=== PATIENT | male | born 1945 | race Caucasian/White ===

== ENCOUNTER 2022-09-01 11:22 | Emergency (ER) | payer MEDICARE, SELFPAY ==
--- NOTE | ~2022-09-01 | US_ITS ---
US venous doppler [facility] DATE: 09/01/2022 13:27 INDICATION: Calf pain TECHNIQUE: Real-time and color flow imaging and Doppler analysis of the veins of both lower extremiti es COMPARISON: None FINDINGS: The greater saphenous veins are patent. There is spontaneous and phasic flow and normal aug mentation and color flow signal and normal compression of the deep veins of both lower extremities. IMPRESSION: No evidence of deep venous thrombosis of the lower extremities Reviewed, dictated and finalized at [facility]. Reviewed, dictated and finalized at location [facility].
[2022-09-01 11:25] VITALS: BP 130/68; PULSE 60; RESP 16; TEMP 36.6; O2SAT 100
--- NOTE | 2022-09-01 13:54 | ED.GENADULT ---
HPI - General Adult General Chief complaint: Back Pain/Injury Stated complaint: back/leg problems after moving furniture Time Seen by Provider: 09/01/22 11:58 History of Present Illness HPI narrative: Patient is a 76-year-old male who presents ER with left calf pain. Ongoing for 2 weeks. Worsening over the last week. Occasionally improves with oral pain medication at home. Worse with walking. It also worsened after moving some furniture. No fall or trauma. No swelling of the leg. No chest pain or difficulty breathing. No history of blood clots. Has history of chronic back pain but has no pain at this time and no back pain that radiates down the leg. The Pain when it hurts will radiate into the foot but not up towards the back. No rash. Related Data Allergies Allergy/AdvReac Type Severity Reaction Status Date / Time acetaminophen [From Vicodin] Allergy Unresponsiv Verified 09/01/22 11:51 e hydrocodone [From Vicodin] Allergy Unresponsiv Verified 09/01/22 11:51 e vancomycin Allergy Hallucinati Verified 09/01/22 11:51 ng Review of Systems Review of Systems: All systems reviewed & are unremarkable except as noted in HPI and below Constitutional: Constitutional: Denies chills and Denies fever(s) Cardiovascular: Cardiovascular: Denies chest pain, Denies rapid heart rate and Denies radiating jaw, neck or arm pain Respiratory: Respiratory: Denies dyspnea Musculoskeletal: Musculoskeletal: Denies back pain, Denies arthralgias and Denies joint swelling Comments: left calf pain. Integumentary/Breasts: Skin/Breast: Denies erythema and Denies rash Neurologic: Denies focal weakness and Denies numbness PMFSH Past Medical History Medical History (Updated 09/01/22 @ 13:59 by Abhilash Ryan MD) Acoustic neuroma Diabetes Hyperlipidemia Hypertension Surgical History Surgical History (Updated 09/01/22 @ 13:56 by Abhilash Ryan MD) History of lumbar fusion Exam Narrative: GENERAL: Well-appearing, well-nourished, and in no acute distress. HEAD: Normocephalic, atraumatic. CHEST: Clear to auscultation. No respiratory distress. HEART: Regular rate and rhythm. Normal peripheral pulses. EXTREMITIES: Normal range of motion. Left calf soft and nontender without edema. SKIN: Warm, dry, no rash. NEURO: No focal deficits. Alert and oriented x3. PSYCH: Normal mood and affect. Course Course Emergency Course: Unremarkable exam lower extremity with negative imaging for DVT. Recommend anti-inflammatories for home and follow-up with PCP. Patient and daughter verbalized understanding of treatment plan. Vital Signs Vital signs: Vital Signs Temperature 97.9 F 09/01/22 11:25 Pulse Rate 60 09/01/22 11:25 Respiratory Rate 16 09/01/22 11:25 Blood Pressure 130/68 09/01/22 11:25 Pulse Oximetry 100 09/01/22 11:25 Oxygen Delivery Room Air 09/01/22 11:25 Temperature 97.9 F 09/01/22 11:25 Pulse Rate 60 09/01/22 11:25 Respiratory Rate 16 09/01/22 11:25 Blood Pressure 130/68 09/01/22 11:25 Pulse Oximetry 100 09/01/22 11:25 Oxygen Delivery Room Air 09/01/22 11:25 Medical Decision Making Vital Signs Vital Signs: Vital Signs Temperature 97.9 F 09/01/22 11:25 Pulse Rate 60 09/01/22 11:25 Respiratory Rate 16 09/01/22 11:25 Blood Pressure 130/68 09/01/22 11:25 Pulse Oximetry 100 09/01/22 11:25 Oxygen Delivery Room Air 09/01/22 11:25 Temperature 97.9 F 09/01/22 11:25 Pulse Rate 60 09/01/22 11:25 Respiratory Rate 16 09/01/22 11:25 Blood Pressure 130/68 09/01/22 11:25 Pulse Oximetry 100 09/01/22 11:25 Oxygen Delivery Room Air 09/01/22 11:25 Imaging Data Radiologist's impression: ITS Impressions Venous Doppler Study 09/01/22 13:33 IMPRESSION: No evidence of deep venous thrombosis of the lower extremities Discharge Plan Discharge Clinical Impression: Pain of left calf Patient D
== END 2022-09-01 14:15 | disposition home or self-care (01) ==
PROVIDERS: Emergency Provider Emergency Medicine
DX: M79.662 Pain in left lower leg (principal); I10 Essential (primary) hypertension; E78.5 Hyperlipidemia, unspecified; E11.9 Type 2 diabetes mellitus without complications
CPT/HCPCS: 93971; 99284

== ENCOUNTER → 2022-09-04 14:30 | Outpatient (CLI) | payer MEDICARE, SELFPAY ==
--- NOTE | ~2022-09-04 | MR_ITS ---
EXAMINATION: MR lumbar spine wo con DATE: 09/04/2022 15:20 INDICATION: Low back pain TECHNIQUE: Magnetic resonance imaging (MRI) of the lumbar spine was performed without intravenous con trast. Sequences included sagittal T2-weighted FSE, sagittal T2-weighted FS FSE, sagittal T1-weighted FSE, and axial T2-weighted FSE. COMPARISON: None FINDINGS: 5 mm retrolisthesis L5 on S1. Vertebral body heights are normal. Severe disc height loss at L5-S1 wit h associated mild fibrovascular and fibrofatty degenerative endplate changes. Marrow signal is otherw ise normal. Disc desiccation and mild disc height loss at L3-L4 and L4-L5 and without significant dis c height loss at L2-L3. The conus medullaris terminates at L1-L2. There is normal signal in the cauda l spinal cord. Few T2 hyperintense left renal cyst. Paravertebral soft tissues are otherwise unremark able. The following disc levels are specifically discussed: T12-L1: The disc does not extend beyond the endplate margin. There is mild bilateral facet joint oste oarthritis. There is no neural foraminal stenosis. There is no central canal stenosis. L1-L2: Disc is minimally bulging. There is mild bilateral facet joint osteoarthritis. There is no tiara ral foraminal stenosis. There is no central canal stenosis. L2-L3: Disc is mildly bulging. There is mild bilateral facet joint osteoarthritis. There is mild bila teral neural foraminal stenosis. There is mild central canal stenosis. L3-L4: Disc is mildly bulging. There is mild bilateral facet joint osteoarthritis. There is mild to m oderate bilateral neural foraminal stenosis. There is mild central canal stenosis. L4-L5: Moderate disc bulge with annular fissure. There is mild hypertrophy of the left ligamentum fla vum. There is moderate left and mild to moderate right facet joint osteoarthritis. There is moderate left and mild to moderate right neural foraminal stenosis. There is mild central canal stenosis laurita g with narrowing of the left and right lateral recesses. L5-S1: Disc is bulging with annular fissure. L5 inferior endplate osteophytes at the bilateral neural foramina. There is mild left and moderate right facet joint osteoarthritis. There is moderate bilate ral neural foraminal stenosis. There is minimal central canal stenosis with mild stenosis of the left and right lateral recesses. IMPRESSION: 1. Spondylosis, severe at L5-S1 and mild in the more cephalad lumbar spine. Reviewed, dictated and finalized at location [facility].
== END ==
PROVIDERS: PCP Neurological Surgery
DX: M47.816 Spondylosis without myelopathy or radiculopathy, lumbar region (principal); M54.50 Low back pain, unspecified
CPT/HCPCS: 72148

== ENCOUNTER 2023-09-26 09:08 | Emergency (ER) | payer MEDICARE, SELFPAY ==
[2023-09-26 09:12] VITALS: BP 212/86; PULSE 71; RESP 19; TEMP 36.6; O2SAT 100
--- NOTE | 2023-09-26 09:23 | ED.MALEGU ---
HPI - Male Genitourinary General Chief complaint: Urogenital-Male Stated complaint: Urinary Issues Time Seen by Provider: 09/26/23 09:15 Source: patient Mode of arrival: ambulatory Limitations: no limitations History of Present Illness HPI Narrative: Humberto is a 77-year-old male patient presenting to the emergency room today with complaints of difficulty urinating. reports that the last time he voided was around 3:00 a.m. this morning. She said he was dribbling and having a weak stream. Had a Booth catheter removed by Dr. Rolon at [facility] yesterday. History of BPH. reports that he has had biopsies of his prostate and they were normal. Reports this urinary retention started on September 17 after surgery when the gave the patient propofol. Received a Booth catheter after he was having overflow incontinence and pain. Currently rating pain at a 10 over the suprapubic area. Related Data Home Medications Medication Instructions Recorded Confirmed atorvastatin 40 mg tablet 40 mg PO DAILY 09/12/22 carvedilol 25 mg tablet 25 mg PO BID 09/12/22 hydrochlorothiazide 12.5 mg tablet 12.5 mg PO DAILY 09/12/22 losartan 50 mg tablet 50 mg PO DAILY 09/12/22 metformin 500 mg tablet,extended tablet PO 09/12/22 release 24 hr Allergies Allergy/AdvReac Type Severity Reaction Status Date / Time acetaminophen [From Vicodin] Allergy Unresponsiv Verified 09/01/22 11:51 e hydrocodone [From Vicodin] Allergy Unresponsiv Verified 09/01/22 11:51 e vancomycin Allergy Hallucinati Verified 09/01/22 11:51 ng Review of Systems Review of Systems: Pertinent positives per HPI. Patient denies any fever, chills, rash, headache, visual changes, dizziness, cough, runny nose, sore throat, shortness of breath, chest pain, palpitations, nausea, vomiting, diarrhea, constipation PMFSH Past Medical History Medical History (Updated 09/26/23 @ 10:26 by Yovani Vega APRN) Acoustic neuroma Diabetes Hyperlipidemia Hypertension Surgical History Surgical History (Updated 09/01/22 @ 13:56 by Abhilash Ryan MD) History of lumbar fusion Family History Family History (Updated 09/12/22 @ 14:50 by Celeste Matson MA) Father Alzheimers disease Mother Diabetes mellitus Hypertension Heart problem Spinocerebellar ataxia Sibling Hypertension Social History Social History Smoking status: Smoker, status unknown Comments At the time of my signature, I reviewed and agree with the nursing past medical, surgical, social, and family history. There is no relevant family history pertinent to the patient complaint. Exam Narrative: General: Well-developed, well nourished, in no apparent distress. Head: Normocephalic, atraumatic. Cardio: Regular rate and rhythm, s1 and s2 normal, no murmur appreciated. Resp: Clear to auscultation bilaterally, no rhonchi, rales, wheezing or rubs. Abdomen: Soft, pliable, bowel sounds present in all quadrants, suprapubic area tender to palpation, no organomegly, no CVAT tenderness. Course Course Emergency Course: Portions of this record may have been created with voice recognition software. Vital Signs Vital signs: Vital Signs Temperature 36.6 C 09/26/23 09:12 Pulse Rate 71 09/26/23 09:12 Respiratory Rate 19 09/26/23 09:12 Blood Pressure 212/86 H 09/26/23 09:12 Pulse Oximetry 100 09/26/23 09:12 Oxygen Delivery Room Air 09/26/23 09:12 Temperature 36.6 C 09/26/23 09:12 Pulse Rate 71 09/26/23 09:12 Respiratory Rate 19 09/26/23 09:12 Blood Pressure 212/86 H 09/26/23 09:12 Pulse Oximetry 100 09/26/23 09:12 Oxygen Delivery Room Air 09/26/23 09:12 Vital signs reviewed MDM - Male Genitourinary MDM Narrative Medical decision making narrative: At the time of visit patient is resting comfortably on the exam table. Patient appears to b
[2023-09-26 10:03] LABS: Basophils Percent Auto 0.3 % (0.2-1.2); Eosinophils Absolute Auto 0.1 K/mm3 (0-0.3); Eosinophils Percent Auto 0.8 % (0-4.4); Hematocrit 41.9 % (42.0-52.0); Hemoglobin 14.1 g/dL (14.0-18.0); Immature Granulocyte Absolute 0.02 K/mm3 (0.00-0.031); Immature Granulocyte Percent A 0.2 % (0-0.5); Immature Platelet Fraction Pct 4.2 % (0.9-11.2); Lymphocytes Absolute Auto 0.69 K/mm3 (0.9-3.2); Lymphocytes Percent Auto 7.2 % (18.3-44.2); Mean Corpuscular HGB Conc 33.7 g/dl (32-36); Mean Corpuscular Hemoglobin 31.3 pg (26-34); Mean Corpuscular Volume 93.1 fl (80-100); Mean Platelet Volume 10.9 fl (7.4-10.4); Monocytes Absolute Auto 0.4 K/mm3 (0.1-0.6); Monocytes Percent Auto 4.2 % (2.6-8.5); Neutrophils Absolute Auto 8.4 K/mm3 (1.3-6.7); Neutrophils Percent Auto 87.3 % (45.5-73.1); Platelet Count Result 110 k/mm3 (150-375); Red Cell Distribution Width 12.3 % (11.5-14.5); White Blood Count 9.6 K/mm3 (4.5-10.0)
[2023-09-26 10:08] LABS: Appearance Urine Clear (Clear); Bacteria Urine None Seen /hpf; Bilirubin Urine Negative (Negative); Blood Urine Non-Hemolyzed Trace (Negative); Color Urine Yellow (Yellow); Glucose Urine UA Negative (Negative); Ketones Urine Negative (Negative); Leukocyte Esterase Ur Trace LEU/UL (Negative); Nitrate Urine Negative (Negative); Non Pathogenic Casts 0-2; Protein Urine Negative (Negative); Specific Grav Ur 1.008 (1.001-1.035); Squamous Epithelial Cell Urine None Seen /hpf (Few); Urobilinogen Urine 0.2 mg/dL (<2.0); WBC Urine 0-5 /hpf (0-3)
[2023-09-26 10:12] LABS: Alanine Aminotransferase 26 U/L (6-50); Albumin Level 4.1 g/dL (3.5-5.1); Alkaline Phosphatase 90 U/L (38-126); Anion Gap 10 mmol/L (4-12); Aspartate Amino Transferase 28 U/L (17-59); Bilirubin,Total 0.9 mg/dL (0.2-1.3); Blood Urea Nitrogen 15 mg/dL (9-20); Carbon Dioxide 25 mmol/L (22-30); Chloride 105 mmol/L (98-107); Estimated CRCL calculation 58 ml/min; Estimated Glomerular Filt Rate > 60; Glucose 174 mg/dL (65-110); Potassium 3.6 mmol/L (3.4-5.0); Sodium 140 mmol/L (137-145)
[2023-09-26 10:17] LABS: Add Urine Microscopic? YES
[2023-09-26 11:00] VITALS: BP 120/72; PULSE 80; RESP 16; O2SAT 98
== END 2023-09-26 11:05 | disposition home or self-care (01) ==
PROVIDERS: Emergency Provider Nurse Practitioner Family
DX: N40.1 Benign prostatic hyperplasia with lower urinary tract symptoms (principal); R33.8 Other retention of urine; I10 Essential (primary) hypertension; E78.5 Hyperlipidemia, unspecified; E11.9 Type 2 diabetes mellitus without complications; Z79.84 Long term (current) use of oral hypoglycemic drugs
CPT/HCPCS: 36415; 51702; 80053; 81001; 85025; 85055; 99283

== ENCOUNTER 2023-10-02 02:10 | Emergency (ER) | payer MEDICARE, SELFPAY ==
[2023-10-02 03:09] VITALS: BP 171/76; PULSE 90; RESP 18; TEMP 36.4; O2SAT 99
--- NOTE | 2023-10-02 04:16 | ED.MALEGU ---
HPI - Male Genitourinary General Chief complaint: Urogenital-Male Time Seen by Provider: 10/02/23 02:12 History of Present Illness HPI Narrative: Patient is a 77-year-old male who presents ER with urinary retention and lower abdominal pain. He had a Booth catheter removed today. He has had multiple episodes of urinary retention since the beginning of the month. He reports dysuria with increased frequency and weak stream. He has lower abdominal pain with palpation. Hurts with movement. Related Data Home Medications Medication Instructions Recorded Confirmed atorvastatin 40 mg tablet 40 mg PO DAILY 09/12/22 10/02/23 losartan 50 mg tablet 50 mg PO DAILY 09/12/22 10/02/23 cholecalciferol (vitamin D3) 100 1,000 unit PO DAILY 10/02/23 10/02/23 mcg (4,000 unit) capsule meloxicam 15 mg tablet 15 mg PO DAILY 10/02/23 10/02/23 omeprazole 20 mg tablet,delayed 20 mg PO DAILY 10/02/23 10/02/23 release tamsulosin 0.4 mg capsule (Flomax) 0.4 mg PO DAILY 10/02/23 10/02/23 vitamins A,C,J-wknu-phxifh 2,148 tablet 10/02/23 10/02/23 mcg-113 mg-45 mg-17.4 mg tablet (PreserVision AREDS) Allergies Allergy/AdvReac Type Severity Reaction Status Date / Time acetaminophen [From Vicodin] Allergy Unresponsiv Verified 10/02/23 04:19 e hydrocodone [From Vicodin] Allergy Unresponsiv Verified 10/02/23 04:19 e vancomycin Allergy Hallucinati Verified 10/02/23 04:19 ng Review of Systems Review of Systems: All systems reviewed & are unremarkable except as noted in HPI and below Constitutional: Constitutional: Reports no additional constitutional complaints ENT: Reports system reviewed and no additional complaints, except as documented Cardiovascular: Cardiovascular: Reports no additional cardiovascular complaints Respiratory: Respiratory: Reports no additional respiratory complaints Gastrointestinal: Gastrointestinal: Reports abdominal pain, Denies nausea and Denies vomiting Genitourinary: Genitourinary: Reports oliguria, Reports dysuria and Reports urinary frequency PMFSH Past Medical History Medical History (Updated 10/03/23 @ 00:00 by Barbara Bell) Acoustic neuroma Diabetes Hyperlipidemia Hypertension Surgical History Surgical History (Updated 09/01/22 @ 13:56 by Abhilash Ryan MD) History of lumbar fusion Family History Family History (Updated 09/12/22 @ 14:50 by Celeste Matson MA) Father Alzheimers disease Mother Diabetes mellitus Hypertension Heart problem Spinocerebellar ataxia Sibling Hypertension Social History Social History Smoking status: Smoker, status unknown Exam Narrative: GENERAL: Chronically ill-appearing, well-nourished, and in no acute distress. HEAD: Normocephalic, atraumatic. ENT: Mucous membranes moist. CHEST: Clear to auscultation. No respiratory distress. HEART: Regular rate and rhythm. . Normal peripheral pulses. ABDOMEN: Soft, palpable bladder and lower abdomen that is tender, nondistended. EXTREMITIES: Normal range of motion. No edema. SKIN: Warm, dry, no rash. NEURO: Alert and oriented x2-3, baseline. PSYCH: Normal mood and affect. Course Course Emergency Course: 800 mL out after Booth placement. Urinalysis borderline for infection. Will start on cefuroxime. Vital Signs Vital signs: Vital Signs Temperature 97.6 F 10/02/23 03:09 Pulse Rate 90 10/02/23 03:09 Respiratory Rate 18 10/02/23 03:09 Blood Pressure 171/76 H 10/02/23 03:09 Pulse Oximetry 99 10/02/23 03:09 Oxygen Delivery Room Air 10/02/23 03:09 Temperature 97.6 F 10/02/23 03:09 Pulse Rate 67 10/02/23 04:21 Respiratory Rate 18 10/02/23 04:21 Blood Pressure 132/71 10/02/23 04:21 Pulse Oximetry 98 10/02/23 04:21 Oxygen Delivery Room Air 10/02/23 03:09 MDM - Male Genitourinary Lab Data Labs: Lab Results 10/02/23 Range/Units 03:23 Urine Color Yellow (Yellow) Urine Appearance Clear (Clear) Urine pH 7.0 (5.0-9.0) Ur Specific [place] 1.006 (1.001-1.035) Urine Protein Negative (Negative) mg/dL Urine Glucose (UA) Negative (Negative) mg/dL Urine Ketones Negative (Negative) mg/dL Ur Blood (Man) 1+ H (Negative) Urine Nitrate Negative (Negative) Urine Bilirubin Negative (Negative) Urine Urobilinogen 0.2 (<2.0) mg/dL Leukocyte Esterase Rfl 1+ H (Negative) TANNER/UL Urine RBC 3-5 H (0-2) /hpf Urine WBC 11-20 H (0-3) /hpf Ur Squamous Epith Cells None seen (Few) /hpf Urine Bacteria Rare /hpf Urine Casts 0-2 Urine Characteristics Clear Urine Characteristics Clear Discharge Plan Discharge Clinical Impression: Acute urinary retention, Acute UTI Patient Disposition: Home, Self-Care Condition: Stable Instructions: Urinary Tract Infection in Men (ED), Booth Catheter Placement and Care (ED) Additional Instructions: Follow-up with your urologist for removal of the Booth catheter. This catheter may have to stand for prolonged period. Take the oral antibiotic as prescribed. Return to the ER if you have fever over 100.4? F, you cannot keep down food or water, or you have additional concerns. Prescriptions: No Action atorvastatin 40 mg tablet 40 mg PO DAILY losartan 50 mg tablet 50 mg PO DAILY meloxicam 15 mg Tablet 15 mg PO DAILY tamsulosin [Flomax] 0.4 mg Capsule 0.4 mg PO DAILY omeprazole 20 mg Tablet,Delayed Release (Dr/Ec) 20 mg PO DAILY PreserVision AREDS 2,148 mcg-113 mg-45 mg-17.4mg Tablet Vitamin D3 100 mcg (4,000 unit) Capsule 1,000 unit PO DAILY Follow-up/Referrals: PHYSICIAN NOT ON STAFF,NONSTAFF [Primary Care Provider] - Shane Yates MD [Physician] - 1 Week
[2023-10-02 04:21] VITALS: BP 132/71; PULSE 67; RESP 18; O2SAT 98
--- NOTE | 2023-10-02 04:22 | PC.NURSE ---
0309: THis RN collected pt urine analysis around 0309 this morning.
[2023-10-02 04:34] LABS: Add Urine Microscopic? YES; Appearance Urine Clear (Clear); Bacteria Urine Rare /hpf; Bilirubin Urine Negative (Negative); Blood Urine 1+ (Negative); Color Urine Yellow (Yellow); Glucose Urine UA Negative (Negative); Ketones Urine Negative (Negative); Leukocyte Esterase Ur 1+ LEU/UL (Negative); Nitrate Urine Negative (Negative); Non Pathogenic Casts 0-2; Protein Urine Negative (Negative); Specific Grav Ur 1.006 (1.001-1.035); Squamous Epithelial Cell Urine None Seen /hpf (Few); Urobilinogen Urine 0.2 mg/dL (<2.0)
== END 2023-10-02 04:59 | disposition home or self-care (01) ==
PROVIDERS: Emergency Provider Emergency Medicine
DX: N39.0 Urinary tract infection, site not specified (principal); R33.9 Retention of urine, unspecified; E11.9 Type 2 diabetes mellitus without complications; E78.5 Hyperlipidemia, unspecified; I10 Essential (primary) hypertension; Z98.1 Arthrodesis status
CPT/HCPCS: 51702; 80053; 80061; 81001; 81003; 82043; 82607; 83036; 84439; 84443; 84480; 85025; 86777; 87077; 87086; 87088; 87181; 99283

== ENCOUNTER 2023-10-02 11:19 | Outpatient (NON) | payer MEDICARE, SELFPAY ==
[2023-10-02 13:08] LABS: Basophils Percent Auto 0.5 % (0.2-1.2); Eosinophils Absolute Auto 0.1 K/mm3 (0-0.3); Eosinophils Percent Auto 0.9 % (0-4.4); Hematocrit 39.1 % (42.0-52.0); Hemoglobin 12.8 g/dL (14.0-18.0); Immature Granulocyte Absolute 0.02 K/mm3 (0.00-0.031); Immature Granulocyte Percent A 0.3 % (0-0.5); Lymphocytes Absolute Auto 0.64 K/mm3 (0.9-3.2); Lymphocytes Percent Auto 9.8 % (18.3-44.2); Mean Corpuscular HGB Conc 32.7 g/dl (32-36); Mean Corpuscular Hemoglobin 31.1 pg (26-34); Mean Corpuscular Volume 94.9 fl (80-100); Mean Platelet Volume 11.9 fl (7.4-10.4); Monocytes Absolute Auto 0.4 K/mm3 (0.1-0.6); Monocytes Percent Auto 6.3 % (2.6-8.5); Neutrophils Absolute Auto 5.4 K/mm3 (1.3-6.7); Neutrophils Percent Auto 82.2 % (45.5-73.1); Platelet Count Result 118 k/mm3 (150-375); Red Blood Count 4.12 M/mm3 (4.6-6.20); Red Cell Distribution Width 12.4 % (11.5-14.5); White Blood Count 6.5 K/mm3 (4.5-10.0)
[2023-10-02 13:20] LABS: Appearance Urine Clear (Clear); Bacteria Urine Rare /hpf; Bilirubin Urine Negative (Negative); Blood Urine 2+ (Negative); Color Urine Yellow (Yellow); Glucose Urine UA Negative (Negative); Ketones Urine Negative (Negative); Leukocyte Esterase Ur 2+ LEU/UL (Negative); Nitrate Urine Negative (Negative); Protein Urine 1+ mg/dL (Negative); RBC Urine 21-50 /hpf (0-2); Specific Grav Ur 1.015 (1.001-1.035); Squamous Epithelial Cell Urine None Seen /hpf (Few)
[2023-10-02 13:22] LABS: Alanine Aminotransferase 25 U/L (6-50); Albumin Level 3.8 g/dL (3.5-5.1); Alkaline Phosphatase 92 U/L (38-126); Anion Gap 6 mmol/L (4-12); Aspartate Amino Transferase 24 U/L (17-59); Bilirubin,Total 0.8 mg/dL (0.2-1.3); Blood Urea Nitrogen 13 mg/dL (9-20); Calcium 9.7 mg/dL (8.4-10.2); Carbon Dioxide 30 mmol/L (22-30); Chloride 102 mmol/L (98-107); Cholesterol 107 mg/dL (0-200); Estimated Glomerular Filt Rate > 60; Glucose 171 mg/dL (65-110); HDL Direct 41 mg/dL; Potassium 3.3 mmol/L (3.4-5.0); Sodium 138 mmol/L (137-145); Triglycerides 41 mg/dL (<150)
[2023-10-02 13:23] LABS: Hemoglobin A1C 5.7 % (<5.7)
[2023-10-02 13:25] LABS: Add Urine Microscopic? YES
[2023-10-02 13:30] LABS: Creatinine Urine 97.1 mg/dL
[2023-10-02 13:33] LABS: LDL Cholesterol Direct 58 mg/dL
[2023-10-02 13:34] LABS: MALB Creatinine Ratio 179.8 mg/g (0-30); Microalbumin Urine Random 174.6 mg/L (0-16.7)
[2023-10-02 13:51] LABS: Thyroid Stimulating Hormone Reflex 0.452 uIU/mL (0.465-4.68)
[2023-10-02 17:46] LABS: Free T4 Free Thyroxine Reflex 1.69 ng/dL (0.78-2.19)
[2023-10-02 19:10] LABS: Total Triiodothyronine (T3) 1.13 NG/ML (0.97-1.69)
[2023-10-05 14:03] LABS: Toxoplasma IgG Antibody <7.20 IU/mL; Toxoplasma IgM Antibody <8.00 AU/mL
== END 2023-10-02 11:20 | disposition home or self-care (01) ==
PROVIDERS: Visit Provider Internal Medicine
DX: H53.8 Other visual disturbances (principal); R41.0 Disorientation, unspecified; E11.9 Type 2 diabetes mellitus without complications; E44.0 Moderate protein-calorie malnutrition; I10 Essential (primary) hypertension
CPT/HCPCS: 80053; 80061; 81001; 81003; 82043; 82607; 83036; 84439; 84443; 84480; 85025; 86777; 87077; 87086; 87088; 87181

== ENCOUNTER 2023-10-08 15:28 | Outpatient (NON) | payer MEDICARE, SELFPAY ==
[2023-10-08 19:34] LABS: Anion Gap 6 mmol/L (4-12); Blood Urea Nitrogen 15 mg/dL (9-20); Calcium 9.7 mg/dL (8.4-10.2); Carbon Dioxide 30 mmol/L (22-30); Chloride 104 mmol/L (98-107); Estimated Glomerular Filt Rate > 60; Glucose 112 mg/dL (65-110); Potassium 3.7 mmol/L (3.4-5.0); Sodium 140 mmol/L (137-145)
[2023-10-08 19:41] LABS: Bacteria Urine None Seen /hpf; Non Pathogenic Casts 0-2; RBC Urine >100 /hpf (0-2); Squamous Epithelial Cell Urine Occasional /hpf (Few)
[2023-10-08 19:51] LABS: Appearance Urine Cloudy (Clear); Bilirubin Urine 1+ (Negative); Blood Urine 3+ (Negative); Color Urine Red (Yellow); Glucose Urine UA Negative (Negative); Ketones Urine Negative (Negative); Leukocyte Esterase Ur 2+ LEU/UL (Negative); Nitrate Urine Negative (Negative); Protein Urine 2+ mg/dL (Negative); Specific Grav Ur 1.009 (1.001-1.035); Urobilinogen Urine 0.2 mg/dL (<2.0); pH Urine 5.5 (5.0-9.0)
[2023-10-08 19:54] LABS: Add Urine Microscopic? YES
== END 2023-10-08 15:29 | disposition home or self-care (01) ==
PROVIDERS: Visit Provider Internal Medicine
DX: I10 Essential (primary) hypertension (principal); N39.0 Urinary tract infection, site not specified
CPT/HCPCS: 80048; 81001; 87077; 87086; 87088; 87181

== ENCOUNTER 2023-10-23 14:51 | Outpatient (NON) | payer MEDICARE, SELFPAY ==
[2023-10-23 16:43] LABS: Toxigenic C. Diff NEGATIVE (NEGATIVE)
== END 2023-10-23 14:52 | disposition home or self-care (01) ==
LOC: HOME HLTH 14:55
PROVIDERS: Visit Provider Internal Medicine
DX: R19.7 Diarrhea, unspecified (principal); N39.0 Urinary tract infection, site not specified; E11.9 Type 2 diabetes mellitus without complications; E44.0 Moderate protein-calorie malnutrition; I10 Essential (primary) hypertension
CPT/HCPCS: 87493

== ENCOUNTER 2023-11-13 13:17 | Outpatient (NON) | payer MEDICARE, SELFPAY ==
[2023-11-13 15:31] LABS: Appearance Urine Turbid (Clear); Bacteria Urine 1+ /hpf; Bilirubin Urine Negative (Negative); Blood Urine 2+ (Negative); Color Urine Yellow (Yellow); Glucose Urine UA Negative (Negative); Ketones Urine Negative (Negative); Leukocyte Esterase Ur 3+ LEU/UL (Negative); Nitrate Urine Negative (Negative); Non Pathogenic Casts 0-2; Protein Urine Trace mg/dL (Negative); RBC Urine 21-50 /hpf (0-2); Specific Grav Ur 1.017 (1.001-1.035); Squamous Epithelial Cell Urine None Seen /hpf (Few); Urobilinogen Urine 0.2 mg/dL (<2.0); WBC Urine >100 /hpf (0-3)
[2023-11-13 15:33] LABS: Add Urine Microscopic? YES
== END 2023-11-13 13:18 | disposition home or self-care (01) ==
PROVIDERS: Visit Provider Internal Medicine
DX: R41.0 Disorientation, unspecified (principal)
CPT/HCPCS: 81001; 87077; 87086; 87088; 87181

== ENCOUNTER 2023-11-24 15:04 | Outpatient (NON) | payer MEDICARE, SELFPAY ==
[2023-11-24 19:01] LABS: Appearance Urine Cloudy (Clear); Bacteria Urine None Seen /hpf; Bilirubin Urine Negative (Negative); Blood Urine 3+ (Negative); Color Urine Yellow (Yellow); Glucose Urine UA Negative (Negative); Ketones Urine Negative (Negative); Leukocyte Esterase Ur 2+ LEU/UL (Negative); Nitrate Urine Negative (Negative); Non Pathogenic Casts 0-2; Protein Urine 1+ mg/dL (Negative); RBC Urine >100 /hpf (0-2); Specific Grav Ur 1.012 (1.001-1.035); Squamous Epithelial Cell Urine Occasional /hpf (Few); Urobilinogen Urine 0.2 mg/dL (<2.0); WBC Urine 51-100 /hpf (0-3); pH Urine 6.5 (5.0-9.0)
[2023-11-24 19:10] LABS: Add Urine Microscopic? YES
== END 2023-11-24 15:05 | disposition home or self-care (01) ==
LOC: HOME HLTH 15:08
PROVIDERS: Visit Provider Internal Medicine
DX: Z46.6 Encounter for fitting and adjustment of urinary device (principal); N40.1 Benign prostatic hyperplasia with lower urinary tract symptoms; R33.8 Other retention of urine; N99.89 Other postprocedural complications and disorders of genitourinary system; N39.0 Urinary tract infection, site not specified
CPT/HCPCS: 81001; 87086; 87088

== ENCOUNTER 2023-11-25 11:00 | Emergency (ER) | payer MEDICARE, SELFPAY ==
[2023-11-25 11:04] VITALS: BP 138/75; PULSE 70; RESP 16; TEMP 36.9; O2SAT 98
[2023-11-25 11:31] VITALS: BP 123/76; PULSE 79; RESP 8; O2SAT 99
[2023-11-25 11:35] LABS: Basophils Absolute Auto 0.1 K/mm3 (0.0-0.1); Basophils Percent Auto 0.7 % (0.2-1.2); Eosinophils Absolute Auto 0.1 K/mm3 (0-0.3); Hematocrit 41.6 % (42.0-52.0); Hemoglobin 13.6 g/dL (14.0-18.0); Immature Granulocyte Absolute 0.04 K/mm3 (0.00-0.031); Immature Granulocyte Percent A 0.5 % (0-0.5); Lymphocytes Absolute Auto 0.96 K/mm3 (0.9-3.2); Lymphocytes Percent Auto 13.2 % (18.3-44.2); Mean Corpuscular HGB Conc 32.7 g/dl (32-36); Mean Corpuscular Volume 94.8 fl (80-100); Mean Platelet Volume 10.8 fl (7.4-10.4); Monocytes Absolute Auto 0.6 K/mm3 (0.1-0.6); Monocytes Percent Auto 7.8 % (2.6-8.5); Neutrophils Absolute Auto 5.6 K/mm3 (1.3-6.7); Neutrophils Percent Auto 76.8 % (45.5-73.1); Platelet Count Result 165 k/mm3 (150-375); Red Blood Count 4.39 M/mm3 (4.6-6.20); Red Cell Distribution Width 12.4 % (11.5-14.5); White Blood Count 7.3 K/mm3 (4.5-10.0)
[2023-11-25] MEDS: WATER FOR IRRIGATION, STERILE 500 ML BOTTLE (11:36)
[2023-11-25 11:45] LABS: Alanine Aminotransferase 14 U/L (6-50); Alkaline Phosphatase 103 U/L (38-126); Anion Gap 3 mmol/L (4-12); Aspartate Amino Transferase 25 U/L (17-59); Bilirubin,Total 0.6 mg/dL (0.2-1.3); Blood Urea Nitrogen 12 mg/dL (9-20); Calcium 9.6 mg/dL (8.4-10.2); Carbon Dioxide 34 mmol/L (22-30); Chloride 104 mmol/L (98-107); Estimated CRCL calculation 52 ml/min; Estimated Glomerular Filt Rate > 60; Glucose 103 mg/dL (65-110); Potassium 3.7 mmol/L (3.4-5.0); Sodium 141 mmol/L (137-145)
[2023-11-25 11:48] LABS: INR 1.1; Prothrombin Time 14.4 Seconds (11.1-14.7)
--- NOTE | 2023-11-25 12:25 | ED.MALEGU ---
HPI - Male Genitourinary General Chief complaint: Urogenital-Male Stated complaint: hematuria in catheter Time Seen by Provider: 11/25/23 11:16 History of Present Illness HPI Narrative: patient is a 70-year-old male who presents ER with hematuria. Began overnight. Family concerns that he may have infection. Home health nurse sent his urine yesterday for culture because it had a lot of white blood cells and bacteria. Patient has had Enterococcus that is sensitive to ampicillin, vancomycin, and nitrofurantoin. He has been on amoxicillin recently. He sees Dr. Yates. Related Data Home Medications Medication Instructions Recorded Confirmed atorvastatin 40 mg tablet 40 mg PO DAILY 09/12/22 10/02/23 losartan 50 mg tablet 50 mg PO DAILY 09/12/22 10/02/23 cholecalciferol (vitamin D3) 100 1,000 unit PO DAILY 10/02/23 10/02/23 mcg (4,000 unit) capsule meloxicam 15 mg tablet 15 mg PO DAILY 10/02/23 10/02/23 omeprazole 20 mg tablet,delayed 20 mg PO DAILY 10/02/23 10/02/23 release tamsulosin 0.4 mg capsule (Flomax) 0.4 mg PO DAILY 10/02/23 10/02/23 vitamins A,C,O-mbct-dcaauv 2,148 tablet 10/02/23 10/02/23 mcg-113 mg-45 mg-17.4 mg tablet (PreserVision AREDS) Allergies Allergy/AdvReac Type Severity Reaction Status Date / Time acetaminophen [From Vicodin] Allergy Unresponsiv Verified 10/02/23 04:19 e hydrocodone [From Vicodin] Allergy Unresponsiv Verified 10/02/23 04:19 e vancomycin Allergy Hallucinati Verified 10/02/23 04:19 ng PMFSH Past Medical History Medical History (Updated 11/25/23 @ 13:22 by Abhilash Ryan MD) Acoustic neuroma Diabetes Hyperlipidemia Hypertension Surgical History Surgical History (Updated 09/01/22 @ 13:56 by Abhilash Ryan MD) History of lumbar fusion Family History Family History (Updated 09/12/22 @ 14:50 by Celeste Matson MA) Father Alzheimers disease Mother Diabetes mellitus Hypertension Heart problem Spinocerebellar ataxia Sibling Hypertension Social History Social History Smoking status: Smoker, status unknown Course Vital Signs Vital signs: Vital Signs Temperature 98.5 F 11/25/23 11:04 Pulse Rate 70 11/25/23 11:04 Respiratory Rate 16 11/25/23 11:04 Blood Pressure 138/75 11/25/23 11:04 Pulse Oximetry 98 11/25/23 11:04 Oxygen Delivery Room Air 11/25/23 11:04 Temperature 98.5 F 11/25/23 11:04 Pulse Rate 78 11/25/23 13:01 Respiratory Rate 13 11/25/23 13:01 Blood Pressure 143/74 H 11/25/23 13:01 Pulse Oximetry 95 11/25/23 13:01 Oxygen Delivery Room Air 11/25/23 11:04 MDM - Male Genitourinary Lab Data 11/25/23 11:29 11/25/23 11:29 Labs: Lab Results 11/25/23 11/25/23 Range/Units 11:28 11:29 WBC 7.3 (4.5-10.0) K/mm3 RBC 4.39 L (4.6-6.20) M/mm3 Hgb 13.6 L (14.0-18.0) g/dL Hct 41.6 L (42.0-52.0) % MCV 94.8 (80-100) fl MCH 31.0 (26-34) pg MCHC 32.7 (32-36) g/dl RDW 12.4 (11.5-14.5) % Plt Count 165 (150-375) k/mm3 MPV 10.8 H (7.4-10.4) fl Immature Gran % (Auto) 0.5 (0-0.5) % Neut % (Auto) 76.8 H (45.5-73.1) % Lymph % (Auto) 13.2 L (18.3-44.2) % Moffat % (Auto) 7.8 (2.6-8.5) % Eos % (Auto) 1.0 (0-4.4) % Baso % (Auto) 0.7 (0.2-1.2) % Lymph # (Auto) 0.96 (0.9-3.2) K/mm3 Moffat # (Auto) 0.6 (0.1-0.6) K/mm3 Eos # (Auto) 0.1 (0-0.3) K/mm3 Baso # (Auto) 0.1 (0.0-0.1) K/mm3 Abs Immat Gran (auto) 0.04 H (0.00-0.031) K/mm3 Absolute Neuts (auto) 5.6 (1.3-6.7) K/mm3 Absolute Nucleated RBC 0.000 (0.0-0.012) K/mm3 Nucleated RBC % 0.0 (0.0-0.2) % PT 14.4 (11.1-14.7) Seconds INR 1.1 APTT 27.0 (22.3-36.8) Seconds Sodium 141 (137-145) mmol/L Potassium 3.7 (3.4-5.0) mmol/L Chloride 104 (98-107) mmol/L Carbon Dioxide 34 H (22-30) mmol/L Anion Gap 3 L (4-1
[2023-11-25 13:01] VITALS: BP 143/74; PULSE 78; RESP 13; O2SAT 95
== END 2023-11-25 13:29 | disposition home or self-care (01) ==
PROVIDERS: Emergency Provider Emergency Medicine
DX: N39.0 Urinary tract infection, site not specified (principal); R31.9 Hematuria, unspecified; I10 Essential (primary) hypertension; E11.9 Type 2 diabetes mellitus without complications; E78.5 Hyperlipidemia, unspecified; Z98.1 Arthrodesis status; Z79.899 Other long term (current) drug therapy
CPT/HCPCS: 36415; 80053; 85025; 85610; 85730; 99283

== ENCOUNTER 2023-11-28 15:07 | Emergency (ER) | payer MEDICARE, SELFPAY ==
[2023-11-28 15:27] VITALS: BP 121/66; PULSE 86; RESP 18; TEMP 36.9; O2SAT 99
[2023-11-28 19:19] VITALS: BP 147/79; PULSE 76; RESP 20; O2SAT 98
--- NOTE | 2023-11-28 19:26 | ED.MALEGU ---
HPI - Male Genitourinary General Chief complaint: Urogenital-Male Stated complaint: blood around catheter Time Seen by Provider: 11/28/23 17:24 History of Present Illness HPI Narrative: Patient is a 78-year-old male who presents ER with hematuria. Patient has indwelling Booth for urinary retention. He is being treated with Macrobid. He is not on blood thinning agents. He had a small spot around his penis. He has not been clotting off his catheter. Related Data Home Medications Medication Instructions Recorded Confirmed atorvastatin 40 mg tablet 40 mg PO DAILY 09/12/22 10/02/23 losartan 50 mg tablet 50 mg PO DAILY 09/12/22 10/02/23 cholecalciferol (vitamin D3) 100 1,000 unit PO DAILY 10/02/23 10/02/23 mcg (4,000 unit) capsule meloxicam 15 mg tablet 15 mg PO DAILY 10/02/23 10/02/23 omeprazole 20 mg tablet,delayed 20 mg PO DAILY 10/02/23 10/02/23 release tamsulosin 0.4 mg capsule (Flomax) 0.4 mg PO DAILY 10/02/23 10/02/23 vitamins A,C,Z-sily-vyntrp 2,148 tablet 10/02/23 10/02/23 mcg-113 mg-45 mg-17.4 mg tablet (PreserVision AREDS) Allergies Allergy/AdvReac Type Severity Reaction Status Date / Time acetaminophen [From Vicodin] Allergy Unresponsiv Verified 11/28/23 15:32 e hydrocodone [From Vicodin] Allergy Unresponsiv Verified 11/28/23 15:32 e vancomycin Allergy Hallucinati Verified 11/28/23 15:32 ng Review of Systems Review of Systems: ROS unobtainable: Yes unobtainable due to mental status PMFSH Past Medical History Medical History (Updated 11/28/23 @ 20:06 by Abhilash Ryan MD) Acoustic neuroma Diabetes Hyperlipidemia Hypertension Surgical History Surgical History (Updated 09/01/22 @ 13:56 by Abhilash Ryan MD) History of lumbar fusion Family History Family History (Updated 09/12/22 @ 14:50 by Celeste Matson MA) Father Alzheimers disease Mother Diabetes mellitus Hypertension Heart problem Spinocerebellar ataxia Sibling Hypertension Social History Social History Smoking status: Smoker, status unknown Exam Narrative: GENERAL: Chronically ill-appearing, well-nourished, and in no acute distress. HEAD: Normocephalic, atraumatic. ENT: Mucous membranes moist. NECK: Supple. ABDOMEN: Soft, nontender, nondistended. : Normal appearing external genitalia with Booth catheter coming from the urethra. Dried blood around the tip of the penis but no large clots. No leaking. Booth tube with bloody urine without clots. EXTREMITIES: Normal range of motion. No edema. SKIN: Warm, dry, no rash. NEURO: Alert and oriented x3. PSYCH: Normal mood and affect. Course Course Emergency Course: Discussed case with Urology. Recommends calling the office on Thursday11/30/2023 to get patient in to be seen. Does not recommend switching of the tube for CBI since there is no obstruction or large clots. Patient's has been educated and given reassurance. Vital Signs Vital signs: Vital Signs Temperature 98.5 F 11/28/23 15:27 Pulse Rate 86 11/28/23 15:27 Respiratory Rate 18 11/28/23 15:27 Blood Pressure 121/66 11/28/23 15:27 Pulse Oximetry 99 11/28/23 15:27 Oxygen Delivery Room Air 11/28/23 15:27 Temperature 98.5 F 11/28/23 15:27 Pulse Rate 76 11/28/23 19:19 Respiratory Rate 20 11/28/23 19:19 Blood Pressure 147/79 H 11/28/23 19:19 Pulse Oximetry 98 11/28/23 19:19 Oxygen Delivery Room Air 11/28/23 15:27 MDM - Male Genitourinary Lab Data 11/28/23 19:20 11/28/23 19:20 Labs: Lab Results 11/28/23 Range/Units 19:20 WBC 6.5 (4.5-10.0) K/mm3 RBC 4.09 L (4.6-6.20) M/mm3 Hgb 13.0 L (14.0-18.0) g/dL Hct 38.2 L (42.0-52.0) % MCV 93.4 (80-100) fl MCH 31.8 (26-34) pg MCHC 34.0 (32-36) g/dl RDW 12.5 (11.5-14.5) % Plt Count 145 L (150-375) k/mm3 MPV 10.5 H (7.
[2023-11-28 19:28] LABS: Basophils Percent Auto 0.6 % (0.2-1.2); Eosinophils Absolute Auto 0.1 K/mm3 (0-0.3); Eosinophils Percent Auto 1.6 % (0-4.4); Hematocrit 38.2 % (42.0-52.0); Immature Granulocyte Absolute 0.03 K/mm3 (0.00-0.031); Immature Granulocyte Percent A 0.5 % (0-0.5); Lymphocytes Absolute Auto 1.05 K/mm3 (0.9-3.2); Lymphocytes Percent Auto 16.3 % (18.3-44.2); Mean Corpuscular Hemoglobin 31.8 pg (26-34); Mean Corpuscular Volume 93.4 fl (80-100); Mean Platelet Volume 10.5 fl (7.4-10.4); Monocytes Absolute Auto 0.6 K/mm3 (0.1-0.6); Monocytes Percent Auto 8.8 % (2.6-8.5); Neutrophils Absolute Auto 4.7 K/mm3 (1.3-6.7); Neutrophils Percent Auto 72.2 % (45.5-73.1); Platelet Count Result 145 k/mm3 (150-375); Red Blood Count 4.09 M/mm3 (4.6-6.20); Red Cell Distribution Width 12.5 % (11.5-14.5); White Blood Count 6.5 K/mm3 (4.5-10.0)
[2023-11-28 19:39] LABS: Alanine Aminotransferase 11 U/L (6-50); Albumin Level 3.6 g/dL (3.5-5.1); Alkaline Phosphatase 103 U/L (38-126); Anion Gap 3 mmol/L (4-12); Aspartate Amino Transferase 23 U/L (17-59); Blood Urea Nitrogen 15 mg/dL (9-20); Calcium 9.2 mg/dL (8.4-10.2); Carbon Dioxide 32 mmol/L (22-30); Chloride 105 mmol/L (98-107); Estimated CRCL calculation 53 ml/min; Estimated Glomerular Filt Rate > 60; Glucose 114 mg/dL (65-110); Potassium 3.6 mmol/L (3.4-5.0); Sodium 140 mmol/L (137-145)
[2023-11-28 19:42] LABS: INR 1.1; Prothrombin Time 14.5 Seconds (11.1-14.7)
[2023-11-28 19:43] LABS: Partial Thromboplastin Time 30.2 Seconds (22.3-36.8)
--- NOTE | 2023-11-28 19:50 | PC.NURSE ---
Report received from TESS Thompson. Assumed care of patient at this time.
[2023-11-28 20:15] VITALS: BP 153/84; PULSE 75; RESP 17; O2SAT 99
== END 2023-11-28 20:25 | disposition home or self-care (01) ==
PROVIDERS: Emergency Provider Emergency Medicine
DX: R31.9 Hematuria, unspecified (principal); I10 Essential (primary) hypertension; E11.9 Type 2 diabetes mellitus without complications; E78.5 Hyperlipidemia, unspecified; Z98.1 Arthrodesis status; Z79.899 Other long term (current) drug therapy
CPT/HCPCS: 36415; 51700; 80053; 85025; 85610; 85730; 99283

== ENCOUNTER 2023-11-29 03:07 | Inpatient (IN) | payer MEDICARE, SELFPAY ==
[2023-11-29] VITALS (7 sets, daily range): BP systolic 109–142; BP diastolic 71–93; PULSE 80–104; RESP 12–20; TEMP 36.6–37; O2SAT 95–100; BMI 16.6
--- NOTE | ~2023-11-29 | XR_ITS ---
MODIFIED ESOPHAGRAM HISTORY: Dysphagia. TECHNIQUE: Modified barium esophagram was performed on 12/01/2023. I administered fluoroscopy and perf ormed the exam with speech pathologist. Patient was seated for lateral fluoroscopic imaging for ad stion of thin liquids, pudding, solids and quantified amounts, followed by thin liquids in uncontroll ed amounts. This was recorded on tape. A single fluoroscopic spot image was also recorded. The DAP fo r this procedure was 0.5 Gycm2. The amount of fluoroscopy time used during this procedure was 1.3 min utes. FINDINGS: Oral stage: Adequate function. Pharyngeal stage: Adequate function. Cervical/esophageal stage: Adequate function. IMPRESSION: Patient tolerated regular consistency oral feedings in the upright position. Please dorothy elate with speech pathologist findings and specific feeding recommendations. Reviewed, dictated and finalized at location A. IMPRESSION: Patient tolerated regular consistency oral feedings in the upright position. Please correlate with speech pathologist findings and specific feedi ng recommendations.
--- NOTE | ~2023-11-29 | XR_ITS ---
XR chest 1V portable Ordering provider: Thomas Perez MD History: 78 years Male with . fever WEAKNESS NOTED . Comparison: None. FINDINGS: MEDIASTINUM: The cardiac silhouette is not enlarged. LUNGS: No infiltrates, effusions or pneumothorax. OTHER: No free air under the diaphragm. Degenerative changes of the spine. IMPRESSION: No acute cardiopulmonary pathology. Reviewed, dictated and finalized at location A.
--- NOTE | ~2023-11-29 | CT_ITS ---
EXAMINATION: CT abdomen pelvis wo con DATE: 11/29/2023 04:27 INDICATION: Hematuria TECHNIQUE: Computed tomography (CT) of the abdomen and pelvis was performed without intravenous contr ast. Automated exposure control and iterative reconstruction technique were employed. The dose-length product was 194.28 mGy-cm. COMPARISON: None FINDINGS: 18 x 10 mm patchy/nodular airspace opacity posterolateral basilar right lower lobe with some surround ing groundglass opacity and favor pneumonia over atelectasis or malignancy. Heart size is normal. No pericardial or pleural effusion. Small sliding-type hiatal hernia. Liver, gallbladder, spleen, pancre as and bilateral adrenal glands are normal. There is a large amount of high attenuation clot surround ing a Booth catheter in the bladder. Marked prostatomegaly measuring 6 x 6 cm. There is mild bilatera l hydroureteronephrosis without evident urolithiasis which could be related to either clot or bladder outlet obstruction. 1.5 cm cyst at the upper pole of the left kidney. There is mild colonic divertic ulosis with a sigmoid and descending colon predominance. There is no adjacent inflammatory change to suggest diverticulitis. No bowel obstruction. No free intraperitoneal gas or fluid. No pathologically enlarged abdominal or pelvic lymphadenopathy. Severe spondylosis at the lumbosacral junction. IMPRESSION: 1. Mild bilateral hydroureteronephrosis without evident urolithiasis consistent with chronic outlet o bstruction potentially related to the large amount of clot surrounding the Booth catheter in the blad myra which is of indeterminate etiology related 2. 1.8 x 1.0 cm patchy/nodular opacity with surrounding groundglass opacity basilar right lower lobe suspicious for pneumonia. Would recommend 2-3 month follow-up low-dose noncontrast chest CT to docume nt resolution. 3. Diverticulosis. Reviewed, dictated and finalized at location A. IMPRESSION: 1. Mild bilateral hydroureteronephrosis without evident urolithiasis consistent with chronic outlet obstruction potentially related to the large amount of latasha t surrounding the Booth catheter in the bladder which is of indeterminate etiol ogy related 2. 1.8 x 1.0 cm patchy/nodular opacity with surrounding groundglass opacity bas ilar right lower lobe suspicious for pneumonia. Would recommend 2-3 month follo w-up low-dose noncontrast chest CT to document resolution. 3. Diverticulosis.
--- NOTE | ~2023-11-29 | CT_ITS ---
CT abdomen pelvis wo con Ordering provider: Mathew Haas MD History: 78 years Male with . urinary retention . Comparison: November 29, 2023 Technique: CT abdomen and pelvis without IV and without oral contrast. Radiation reduction technique utilized. DLP is 176.12mGy. Findings: VISUALIZED LOWER CHEST: Soft tissue density is seen in the right lower lobe laterally which measures 1.8 x 0.8 cm which may be a nodule or focal atelectasis of pneumonia. Follow-up advised. UPPER ABDOMINAL ORGANS: Liver: Normal. Gallbladder: Normal. Spleen: Normal. Stomach/duodenum: Sliding hiatus hernia. Pancreas: Normal. Adrenals: Normal. Kidneys: Hypodensity in the left kidney upper pole most likely a small cyst measuring 1.5 cm. PELVIC ORGANS: Hyperdense material seen in the bladder suggestive of hemorrhage are infection. Booth catheter is seen. Grossly enlarged prostate. BOWEL AND MESENTERY: Colon: Mild sigmoid diverticulosis without diverticulitis. Appendix is not demonstrated. Small Bowel: Normal. No obstruction. Peritoneum/mesentery: No free air or free fluid. No mesenteric lymphadenopathy. RETROPERITONEUM: Mild atheromatous disease of the abdominal aorta. No retroperitoneal lymphadenopat hy. MUSCULOSKELETAL: Superficial soft tissues: The superficial soft tissues are normal. Bones: Age appropriate degenerative changes of the spine. IMPRESSION: 1. Hyperdense material in the urinary bladder suggestive of hemorrhage. 2. Grossly enlarged prostate. 3. No evidence of diverticulitis, appendicitis or intestinal obstruction. 4. Nodule in the right lower lobe unchanged from previous examination. Reviewed, dictated and finalized at location A.
--- NOTE | ~2023-11-29 | US_ITS ---
EXAMINATION: US renal BI DATE: 11/29/2023 16:31 INDICATION: Hydronephrosis. TECHNIQUE: Multiple ultrasound grayscale images of the kidneys were obtained. COMPARISON: CT abdomen and pelvis 11/29/2023 FINDINGS: The right kidney measures 9.9 x 5.2 x 4.2 cm. The left kidney measures 9.9 x 4.0 x 3.5 cm. The kidney s demonstrate normal parenchymal echogenicity. There are cysts in the kidneys measuring up to 1.8 cm on the right. There is no hydronephrosis. The bladder is decompressed by a Booth catheter. There is h ematoma in the bladder lumen. The prostate is severely enlarged. IMPRESSION: 1. Normal kidney sizes. No hydronephrosis. 2. Hematoma in the bladder lumen. 3. Severely enlarged prostate. Reviewed, dictated and finalized at location E.
--- NOTE | 2023-11-29 03:54 | ED.GENADULT ---
HPI - General Adult General Chief complaint: Urogenital-Male Stated complaint: hematuria Time Seen by Provider: 11/29/23 03:25 History of Present Illness HPI narrative: 70-year-old male with indwelling Wright presenting for hematuria. Patient was seen earlier in the day today and was discharged back home. Since then patient has been complaining of lower abdominal pain in his Wright has stopped draining. He has also continued to have bleeding from the urethral meatus. Related Data Home Medications Medication Instructions Recorded Confirmed atorvastatin 40 mg tablet 40 mg PO DAILY 09/12/22 10/02/23 losartan 50 mg tablet 50 mg PO DAILY 09/12/22 10/02/23 cholecalciferol (vitamin D3) 100 1,000 unit PO DAILY 10/02/23 10/02/23 mcg (4,000 unit) capsule meloxicam 15 mg tablet 15 mg PO DAILY 10/02/23 10/02/23 omeprazole 20 mg tablet,delayed 20 mg PO DAILY 10/02/23 10/02/23 release tamsulosin 0.4 mg capsule (Flomax) 0.4 mg PO DAILY 10/02/23 10/02/23 vitamins A,C,Q-fbst-tsnywi 2,148 tablet 10/02/23 10/02/23 mcg-113 mg-45 mg-17.4 mg tablet (PreserVision AREDS) Allergies Allergy/AdvReac Type Severity Reaction Status Date / Time acetaminophen [From Vicodin] Allergy Unresponsiv Verified 11/28/23 15:32 e hydrocodone [From Vicodin] Allergy Unresponsiv Verified 11/28/23 15:32 e vancomycin Allergy Hallucinati Verified 11/28/23 15:32 ng PMFSH Past Medical History Medical History (Updated 11/29/23 @ 07:39 by Joby Dahl MD) Acoustic neuroma Diabetes Hyperlipidemia Hypertension Surgical History Surgical History (Updated 09/01/22 @ 13:56 by Abhilash Ryan MD) History of lumbar fusion Family History Family History (Updated 09/12/22 @ 14:50 by Celeste Matson MA) Father Alzheimers disease Mother Diabetes mellitus Hypertension Heart problem Spinocerebellar ataxia Sibling Hypertension Social History Social History Smoking status: Smoker, status unknown Exam Narrative: APPEARANCE: No apparent distress. Head: atraumatic. EYES: EOMI, NOSE: Atraumatic NECK: Trachea midline RESPIRATORY: No increased rate of breathing CARDIOVASCULAR: RRR, ABDOMINAL: Non-distended suprapubic tenderness and fullness. MUSCULOSKELETAl: No obvious deformities NEURO: Alert. Moving 4/4 extremities SKIN:: Warm, dry. Normal color PSYCHIATRIC: Normal affect Course Vital Signs Vital signs: Vital Signs Temperature 98.4 F 11/29/23 03:08 Pulse Rate 104 H 11/29/23 03:08 Respiratory Rate 20 11/29/23 03:08 Blood Pressure 130/93 H 11/29/23 03:08 Pulse Oximetry 100 11/29/23 03:08 Oxygen Delivery Room Air 11/29/23 03:08 Temperature 98.4 F 11/29/23 03:08 Pulse Rate 104 H 11/29/23 03:08 Respiratory Rate 20 11/29/23 03:08 Blood Pressure 130/93 H 11/29/23 03:08 Pulse Oximetry 100 11/29/23 03:08 Oxygen Delivery Room Air 11/29/23 03:08 Medical Decision Making MDM Narrative Medical decision making narrative: -Course: 78-year-old male bouncing back to the ED with continued bleeding from his Wright catheter. Urine in the catheter is dark red. point of care ultrasound showed large clots in the bladder. I repositioned and flushed reposition Wright to help drain but quickly clotted off again. CT ordered to evaluate for clot burden. Case discussed with Dr. Haas. CBI will be started the emergency department with a [address] Haas will assess later this morning to determine how the patient is doing. Patient admitted to hospital for further management. -DDX includes but is not limited to: Hematuria, bladder clots, Wright dislodgement -Co-morbidities complicating care: dementia -Discussion of Management/Consultants: Dr. Haas-hospitalistNeil - Hospitalist -Interventions: CBI, 1000 mg Tylenol -Shared decision making / Disposition: Obse
[2023-11-29] MEDS: ACETAMINOPHEN 500 MG TABLET 1000 MG PO (04:34)
[2023-11-29] MEDS: LIDOCAINE HCL 2% GEL UROJET 10 ML PKG (07:23)
[2023-11-29 07:29] LABS: Basophils Percent Auto 0.4 % (0.2-1.2); Hematocrit 38.1 % (42.0-52.0); Hemoglobin 12.6 g/dL (14.0-18.0); Immature Granulocyte Absolute 0.03 K/mm3 (0.00-0.031); Immature Granulocyte Percent A 0.3 % (0-0.5); Lymphocytes Absolute Auto 0.52 K/mm3 (0.9-3.2); Lymphocytes Percent Auto 4.6 % (18.3-44.2); Mean Corpuscular HGB Conc 33.1 g/dl (32-36); Mean Corpuscular Hemoglobin 30.7 pg (26-34); Mean Corpuscular Volume 92.7 fl (80-100); Mean Platelet Volume 10.5 fl (7.4-10.4); Monocytes Absolute Auto 0.5 K/mm3 (0.1-0.6); Monocytes Percent Auto 3.9 % (2.6-8.5); Neutrophils Absolute Auto 10.4 K/mm3 (1.3-6.7); Neutrophils Percent Auto 90.8 % (45.5-73.1); Platelet Count Result 178 k/mm3 (150-375); Red Blood Count 4.11 M/mm3 (4.6-6.20); Red Cell Distribution Width 12.5 % (11.5-14.5); White Blood Count 11.4 K/mm3 (4.5-10.0)
[2023-11-29 07:45] LABS: Alanine Aminotransferase 13 U/L (6-50); Albumin Level 3.7 g/dL (3.5-5.1); Alkaline Phosphatase 103 U/L (38-126); Anion Gap 7 mmol/L (4-12); Aspartate Amino Transferase 23 U/L (17-59); Bilirubin,Total 0.9 mg/dL (0.2-1.3); Blood Urea Nitrogen 20 mg/dL (9-20); Calcium 9.7 mg/dL (8.4-10.2); Carbon Dioxide 28 mmol/L (22-30); Chloride 106 mmol/L (98-107); Estimated CRCL calculation 64 ml/min; Estimated Glomerular Filt Rate > 60; Glucose 133 mg/dL (65-110); Potassium 4.1 mmol/L (3.4-5.0); Sodium 141 mmol/L (137-145)
--- NOTE | 2023-11-29 09:03 | ADMGEN ---
This patient, Humberto Leach, was admitted to [facility] Surg Room 303-01. Patient/family oriented to hospital policies and general routines including ID bracelet, bed and alarms, visiting hours, pain management, procedures, bathroom and other care routines, personal items, smoking policy, room service/diet, and visiting hours. Information on how to activate the Rapid Response Team has been discussed. Patient/Family are encouraged to report perceived risks to care and to ask questions if they do not understand what they are told or what they should do.
[2023-11-29 09:59] LABS: Procalcitonin 0.1 ng/mL
--- NOTE | 2023-11-29 11:37 | WPDURCON ---
Assessment and Plan Assessment and plan (1) Hematuria: Code(s): R31.9 - Hematuria, unspecified Status: Acute (2) Clot retention of urine: Code(s): R33.8 - Other retention of urine Status: Acute (3) UTI (urinary tract infection): Code(s): N39.0 - Urinary tract infection, site not specified Status: Acute Plan 78-year-old gentleman with clot retention likely due to BPH and malpositioned Booth catheter. The patient's catheter was replaced to a 24 F three-way in the emergency department. Irrigation performed at bedside with removal of significant clot burden from bladder. Catheter now draining well with clear urine on CBI with catheter on traction --continue CBI --monitor laboratory findings. --hydronephrosis seen on CT scan likely due to obstruction. --resume antibiotics. Ancef 1g q.8 hours started based on previous culture. --plan renal/bladder ultrasound in the morning to assess for residual bladder clot after bedside irrigation and assess for improvement of hydronephrosis after relieving obstruction. --continue Flomax/finasteride for BPH Urology Consult Note HPI Date Seen: 11/29/23 Requesting Physician: Yolanda Trejo MD Primary Care Provider: UNKNOWN,DOCTOR Consult Narrative Narrative: Humberto Leach is a 78 year old male with a history of urinary retention managed with a indwelling Booth catheter. Patient presented the emergency department yesterday with poor drainage catheter. He was found on CT scan imaging to have a large bladder clot. Patient a three-way catheter placed the ER and then was admitted to monitoring. Patient has been on Macrobid for recent Enterococcus UTI [facility] Past Medical History Medical History (Updated 11/29/23 @ 11:44 by Mathew Haas MD) Acoustic neuroma Clot retention of urine Diabetes Hyperlipidemia Hypertension UTI (urinary tract infection) Surgical History Surgical History (Updated 09/01/22 @ 13:56 by Abhilash Ryan MD) History of lumbar fusion Family History Family History (Updated 09/12/22 @ 14:50 by Celeste Matson MA) Father Alzheimers disease Mother Diabetes mellitus Hypertension Heart problem Spinocerebellar ataxia Sibling Hypertension Social History Social History Smoking status: Former smoker Tobacco type: pipe Alcohol intake: never Substance use: never Substance use type: does not use Do You Feel Safe in your Home?: Yes Lack of Transportation: No Lack of Food: Never True Current Housing: I Have Housing Concerned About Future Housing: No Difficulty Paying Gas/Electric Bills: No Difficulty Paying for Meds: No Currently Unemployed: No Education: Trade/Vocational Certificate Difficulty w/ Childcare or Family Care: No Spiritual care concerns: No Meds Home Medications and Allergies Home Medications Medication Instructions Recorded Confirmed Type cholecalciferol (vitamin D3) 100 1,000 unit PO DAILY 10/02/23 11/29/23 History mcg (4,000 unit) capsule meloxicam 15 mg tablet 15 mg PO DAILY 10/02/23 11/29/23 History omeprazole 20 mg tablet,delayed 20 mg PO DAILY 10/02/23 11/29/23 History release tamsulosin 0.4 mg capsule (Flomax) 0.4 mg PO DAILY 10/02/23 11/29/23 History vitamins A,C,F-gldq-cqocmo 2,148 1 tablet PO DAILY 10/02/23 11/29/23 History mcg-113 mg-45 mg-17.4 mg tablet (PreserVision AREDS) nitrofurantoin 100 mg PO Q12H 7 days #14 caps 11/25/23 11/29/23 Rx monohydrate/macrocrystals 100 mg capsule (Macrobid) acetaminophen 650 mg 650 mg PO Q4H PRN Pain (Scale 11/29/23 11/29/23 History tablet,extended release Score 1-3) finasteride 5 mg tablet 5 mg PO DAILY 11/29/23 11/29/23 History ketotifen fumarate 0.025 % (0.035 1 drp EACH EYE Q12H 11/29/23 11/29/23 History %) eye drops mirtazapine 15 mg tablet 15 mg PO DAILY 11/29/23 11/29/23 History All
[2023-11-29] MEDS: ceFAZolin 1 GM/NS 50 ML 1 GM/50 ML BAG IVPB ×2 (13:32→21:46)
--- NOTE | 2023-11-29 15:37 | PM.IMHP ---
H&P: HPI History of Present Illness Date/Time: 11/29/23 14:30 Chief Complaint: Bleeding around Booth catheter. 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 The patient is not able to provide an accurate history at this time due to delirium and his and son provided most of the following history. He has had several ED visits with urinary retention and was evaluated last evening after noticing blood around the Booth catheter. He was not bleeding at that time and the catheter was patent and draining and he was discharged to follow-up with Urology on Thursday. He returned early this morning with increasing blood around the catheter, a decrease in urine output, and lower abdominal discomfort. reports that he has had a dry cough and ?a lot mucus.? With further questioning she does indicate that at times he seems to cough or clear his throat quite a bit when eating or drinking. They have not witnessed any episodes of aspiration. No known sick contacts. There are no reports of fever, vomiting, or diarrhea. Regarding the current delirium, this is the 1st time has seen him behave this way (she thinks that we are keeping him hostage in tells her to call the please, he is refusing to allow nursing staff to flush his Booth catheter, and he is constantly berating his family members who were at bedside). In the ED: He was afebrile on arrival with stable vital signs. Labs were significant for WBC count of 11.4, hemoglobin 12.6, glucose 133, procalcitonin 0.1. CT of the abdomen pelvis showed mild bilateral hydroureteronephrosis, large amount of clot surrounding the Booth catheter in the bladder, and a 1.8 x 1.0 cm patch/nodular opacity with surrounding ground-glass opacity in the basilar right lower lobe suspicious for pneumonia. He was started on cefazolin and CBI and is being admitted in this setting for further treatment and urology consultation. Review of Systems Review of Systems: Twelve systems were reviewed. He has lost about 30 lb this year. states that he just does not eat much anymore. On occasion sounds as though he some difficulty swallowing, cough here chewing after eating or drinking. He has periods of confusion but he has never experienced delirium. [facility] Past Medical History Medical History (Updated 11/29/23 @ 22:15 by Oumou Roberts PA-C) 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 Benign prostatic hyperplasia Diet-controlled diabetes mellitus A1c was 5.7% in September 2023. Hyperlipidemia Hypertension Kidney stones Surgical History Surgical History History of lumbar fusion Family History Family History Father Alzheimers disease Mother Diabetes mellitus Hypertension Heart problem Spinocerebellar ataxia Sibling Hypertension Social History Social History (Updated 11/29/23 @ 15:43 by Oumou Roberts PA-C) Social History: Surrogate medical decision maker: Na Leach, spouse. Code status: Full code. Smoking status: Former smoker Tobacco type: pipe Alcohol intake: never Substance use: never Substance use type: does not use Do You Feel Safe in your Home?: Yes Lack of Transportation: No Lack of Food: Never True Current Housing: I Have Housing Concerned About Future Housing: No Difficulty Paying Gas/Electric Bills: No Difficulty Paying for Meds: No Currently Unemployed: No Education: Trade/Vocational Certificate Difficulty w/ Childcare or Family Care: No Spiritual care concerns: No Meds Home Medications and Allergies Home Medications
--- NOTE | 2023-11-29 19:00 | PC.NURSE ---
Pt arrived to the floor on CBI. Manual irrigation performed in ED prior to arrival to floor. Upon arrival CBI wide open and draining red drainage with clots. Bag changed rate continued. Urology came to see pt and irrigated at the bedside, multiple clots removed. Pt denied any pain. Urologist placed catheter on pt leg with tension due to placement at tip of wright believed to be in wrong place wright resumed draining. Upon rechecking wright clotted off again, irrigation attempted and several more clots were removed. Provider was notified and tests were ordered. CBI left wide open per provider in attempt to resume irrigation. Irrigation performed multiple times, clots were removed, but CBI was unsuccessful. Provider notified and provider and AGRONOMY RESEARCH MANAGER both came to speak with family about alternative options and answer all questions that they had. Family was educated that taking pt to OR to do clot evac would be the best chance to fix the problem. Family continued to go back and forth with decision to allow pt to have procedure. Pt family ultimately allowed pt who is A&O1-2 with history of dementia to make decision not to go to OR. Family educated that if they changed their mind to notify nursing staff. Pt continued to be monitored.
--- NOTE | 2023-11-29 19:28 | WPDUROPN2 ---
Progress Note: A&P Assessment and Plan (1) Hematuria: Code(s): R31.9 - Hematuria, unspecified Status: Acute (2) Clot retention of urine: Code(s): R33.8 - Other retention of urine Status: Acute (3) Benign prostatic hyperplasia: Code(s): N40.0 - Benign prostatic hyperplasia without lower urinary tract symptoms Status: Acute Plan 78-year-old with clot retention. Patient with persistent clot in the bladder after bedside irrigation. - I have recommended patient be taken to the operating room for cystoscopy, clot evacuation, fulguration of bleeding sites. A long discussion with the patient and his family including his and 2 sons. Anesthesia provider was also present for discussion. the risks, benefits and alternatives were discussed with the patient's family. The patient states he is unwilling to proceed with procedure at this time Due to fear of anesthetic. - I performed bedside irrigation and a catheter did irrigate and aspirate dark red urine - due to patient's wishes not to proceed with intervention at this time. Continue observation with continuous bladder irrigation. - Continue Flomax and finasteride for BPH. Patient may benefit from prostate artery embolization in the future as enlarged prostate is likely source of his bleeding. - Prior patient becomes uncomfortable due to bladder distention or changes his mind about proceeding with procedure, will proceed with cystoscopy/clot evacuation. Subjective Subjective Date/Time Seen: 11/29/23 19:28 Interval history: Called back to patient's room draining. CT scan and ultrasound performed. These showed resolution of hydronephrosis was persistent clot bladder is decompressed Exam Narrative: patient is awake and alert. He is no acute distress. The patient abdomen soft nontender. Objective Data Vital Signs Vital Signs: Vital Signs - 24 hr 11/29/23 03:08 11/29/23 05:23 11/29/23 06:30 Temperature 36.9 C Pulse Rate 104 H 98 100 Respiratory Rate 20 13 18 Blood Pressure 130/93 H 142/78 H 130/89 Pulse Oximetry 100 98 95 Oxygen Delivery Room Air 11/29/23 08:26 11/29/23 14:00 Temperature 36.6 C Pulse Rate 80 83 Respiratory Rate 18 12 Blood Pressure 109/75 116/71 Pulse Oximetry 98 98 Oxygen Delivery Intake/Output Intake/Output: Intake & Output 11/26/23 11/27/23 11/28/2324 23:59 23:59 23:59 23:59 Intake Total 3500 Output Total 8950 Balance -5450 Meds/Results Medications: Active Medications Generic Name Dose Route Start Last Admin Trade Name Freq PRN Reason Stop Dose Admin Acetaminophen 650 mg 11/29/23 15:52 Acetaminophen 325 Mg Tablet PO Q6H PRN Mild Pain (1-3) or Fever Finasteride 5 mg 11/30/23 09:00 Finasteride 5 Mg Tablet PO DAILY [facility] Cefazolin Sodium 1 gm in 50 mls @ 100 mls/hr 11/29/23 12:00 11/29/23 13:32 Ancef 1 Gm/Ns 50 Ml IVPB 100 mls/hr Q8H [facility] Administration Mirtazapine 15 mg 11/30/23 09:00 Mirtazapine 15 Mg Tablet PO DAILY [facility] Miscellaneous Information 1 each 11/29/23 00:01 Ketotifen Nonformulary. Can Patient Bring From Home Or Hold Till Discharge? XX 12/29/23 00:00 CLARIFY [facility] Multivitamins/Minerals 1 tablet 11/30/23 09:00 Opti-Gen Tab PO QAM [facility] Non-Formulary Medication 1 drop 11/29/23 16:00 Ketotifen Fumarate EACH EYE 12/29/23 15:59 Q12H [facility] Pantoprazole Sodium 40 mg 11/30/23 09:00 Pantoprazole 40 Mg Tablet PO QAM [facility] Tamsulosin HCl 0.4 mg 11/30/23 09:00 Tamsulosin Hcl 0.4 Mg Capsule PO DAILY [facility] Vitamin D 1,000 units 11/30/23 09:00 Cholecalciferol 1,000 Units Tablet PO DAILY [facility] Radiology Results: ITS Impressions Abdomen/Pelvis CT 11/29/23 15:40 IMPRESSION: 1. Hyperdense material in the urinary bladder suggestive of hemorrhage. 2. Grossly enlarged prostate. 3. No evidence of diverticulitis, appe
[2023-11-29 19:37] LABS: Hematocrit 33.2 % (42.0-52.0); Hemoglobin 10.8 g/dL (14.0-18.0)
[2023-11-29] MEDS: MIRTAZAPINE 15 MG TABLET PO (21:45)
[2023-11-30] VITALS (16 sets, daily range): BP systolic 98–131; BP diastolic 53–87; PULSE 67–86; RESP 14–18; TEMP 36.2–37; O2SAT 95–100; BMI 15.1
--- NOTE | 2023-11-30 00:05 | PC.NURSE ---
While administering midnight antibiotic, questioned this nurse about restraining patient. states I don't appreciate you restraining my and I don't want you doing it again. I asked her what she was talking about. She said When you were irrigating his bladder earlier, I saw you restraining him with something on his chest. I explained to that I was irrigating his bladder, but nothing was across patient's chest and no restraints were in use. Patient's daughter in law was at bedside with us while irrigation occurred and she was holding his hand. There were several staff members at bedside, along with Oumou MELVIN. conts to say that patient was restrained. Charge nurse notified.
--- NOTE | 2023-11-30 06:14 | PC.NURSE ---
Lab in patient room to draw blood this morning and patient became very agitated. Patient verbally aggressive and unable to redirect, then patient getting out of bed. Patient pulled IV out and was trying to pull 3-way catheter out. When staff attempted to assist patient back to bed, patient started hitting staff members. Spoke with and Dr. Wilson at this time and both agreeable to soft wrist restraints for patient and staff safety.
--- NOTE | 2023-11-30 06:15 | PC.NURSE ---
I walked into pt room when lab asked for assistance when pt started becoming combative while they where attempting to draw blood. Pt grabbed at labor operator and attempted to hit them and then started to try to kick at staff. is at bedside and attempted to talk to pt but he was becoming aggressive with her as well. Pt continued to attempt to try to get out of bed. Pt hitting and kicking at staff and then attempted to pull out his CBI wright cath. Pt pulled out his IV and continued to try to get up, kicking up his legs and then attempting to hit staff. Pt is confused and verbally aggressive. His went down to the waiting room to sit due to his behaviors and for her safety. I spoke with her about his behavior and our concern regarding his safety and concern that he would pull out his CBI wright. She has agreed to have wrist restraints placed for his safety and to prevent him from pulling out his CBI wright.
[2023-11-30 06:31] LABS: Hematocrit 32.4 % (42.0-52.0); Hemoglobin 10.3 g/dL (14.0-18.0); Mean Corpuscular HGB Conc 31.8 g/dl (32-36); Mean Corpuscular Hemoglobin 30.9 pg (26-34); Mean Corpuscular Volume 97.3 fl (80-100); Mean Platelet Volume 11.6 fl (7.4-10.4); Platelet Count Result 141 k/mm3 (150-375); Red Blood Count 3.33 M/mm3 (4.6-6.20); Red Cell Distribution Width 12.6 % (11.5-14.5); White Blood Count 7.7 K/mm3 (4.5-10.0)
[2023-11-30 06:45] LABS: Anion Gap 5 mmol/L (4-12); Blood Urea Nitrogen 24 mg/dL (9-20); Calcium 9.8 mg/dL (8.4-10.2); Carbon Dioxide 31 mmol/L (22-30); Chloride 109 mmol/L (98-107); Estimated CRCL calculation 44 ml/min; Estimated Glomerular Filt Rate > 60; Glucose 113 mg/dL (65-110); Magnesium 2.3 mg/dL (1.6-2.3); Potassium 4.3 mmol/L (3.4-5.0); Sodium 145 mmol/L (137-145)
--- NOTE | 2023-11-30 07:58 | WPDUROPN2 ---
Progress Note: A&P Assessment and Plan (1) Hematuria: Code(s): R31.9 - Hematuria, unspecified Status: Acute (2) Clot retention of urine: Code(s): R33.8 - Other retention of urine Status: Acute Plan Plan for cystoscopy and clot evacuation today. Patient with severely enlarged prostate which is likely the source of the hematuria. May benefit from prostate procedure in the future (PAE) Consent will be obtained from his . She understands risks of bleeding, infection, damage to the urinary tract, continued hematuria. She agrees to proceed Also understands risks related to anesthesia. Subjective Subjective Date/Time Seen: 11/30/23 07:58 Interval history: Booth catheter in place. He is delirious and combative this morning. I have made attempts to irrigate his catheter. I irrigated twice and got large clots. He then became more combative and attempted to kick me. His [id number] is now agreeing to cystoscopy and clot evacuation. Review of Systems Review of Systems: ROS unobtainable: Yes unobtainable due to medical condition Exam Narrative: Combative. Delirious. He is in restraints. Urine is bloody. I irrigated out large clots. Phallus normal. Objective Data Vital Signs Vital Signs: Vital Signs - 24 hr 11/29/23 08:26 11/29/23 14:00 11/29/23 09:05 Temperature 97.8 F Pulse Rate 80 83 Respiratory Rate 18 12 Blood Pressure 109/75 116/71 Pulse Oximetry 98 98 Oxygen Delivery Room Air 11/29/23 20:32 11/29/23 20:00 Temperature 98.6 F Pulse Rate 92 Respiratory Rate 16 Blood Pressure 112/78 Pulse Oximetry 96 96 Oxygen Delivery Room Air Intake/Output Intake/Output: Intake & Output 11/27/23 11/28/23 11/29/23 11/30/23 23:59 23:59 23:59 23:59 Intake Total 3550 50 Output Total 8950 600 Balance -5400 -550 Meds/Results Medications: Active Medications Generic Name Dose Route Start Last Admin Trade Name Freq PRN Reason Stop Dose Admin Acetaminophen 650 mg 11/29/23 15:52 Acetaminophen 325 Mg Tablet PO Q6H PRN Mild Pain (1-3) or Fever Doxycycline Hyclate 100 mg 11/30/23 09:00 Doxycycline Hyclate 100 Mg Tablet PO Q12HR [facility] Finasteride 5 mg 11/30/23 09:00 Finasteride 5 Mg Tablet PO DAILY [facility] Ceftriaxone Sodium 1 gm in 50 mls @ 100 mls/hr 11/30/23 00:00 11/30/23 00:15 Rocephin 1 Gm/Ns 50 Ml IVPB Infused Q24H [facility] Infusion Mirtazapine 15 mg 11/29/23 21:00 11/29/23 21:45 Mirtazapine 15 Mg Tablet PO 15 mg HS [facility] Administration Miscellaneous Information 1 each 11/29/23 00:01 11/30/23 00:16 Ketotifen Nonformulary. Can Patient Bring From Home Or Hold Till Discharge? XX 12/29/23 00:00 Not Given CLARIFY [facility] Multivitamins/Minerals 1 tablet 11/30/23 09:00 Opti-Gen Tab PO QAM [facility] Non-Formulary Medication 1 drop 11/29/23 16:00 Ketotifen Fumarate EACH EYE 12/29/23 15:59 Q12H [facility] Pantoprazole Sodium 40 mg 11/30/23 09:00 Pantoprazole 40 Mg Tablet PO QAM [facility] Tamsulosin HCl 0.4 mg 11/30/23 09:00 Tamsulosin Hcl 0.4 Mg Capsule PO DAILY [facility] Vitamin D 1,000 units 11/30/23 09:00 Cholecalciferol 1,000 Units Tablet PO DAILY [facility] Radiology Results: ITS Impressions Abdomen/Pelvis CT 11/29/23 15:40 IMPRESSION: 1. Hyperdense material in the urinary bladder suggestive of hemorrhage. 2. Grossly enlarged prostate. 3. No evidence of diverticulitis, appendicitis or intestinal obstruction. 4. Nodule in the right lower lobe unchanged from previous examination. Renal Ultrasound 11/29/23 16:56 IMPRESSION: 1. Normal kidney sizes. No hydronephrosis. 2. Hematoma in the bladder lumen. 3. Severely enlarged prostate. Labs Labs: Laboratory Results - last 24 hr 11/29/23 11/29/23 11/30/23 07:23 19:27 05:28 WBC 7.7 RBC 3.33 L Hgb 10.8 L 10.3 L Hct 33.2 L 32.4 L MCV 97.3 MCH
--- NOTE | 2023-11-30 09:00 | WPDANESEPPF ---
Anes - Initial Pre Proc Eval Procedure: Operation Date: 11/30/23 10:15 Proposed Procedures p Cystoscopy, Clot Evacuation - Oh Purvis MD Date/Time: 11/30/23 09:00 Surgeon: Yolanda Trejo MD Pre Op Diagnosis: hematuria Patient Data Age: 78 Gender: M Height: 1.75 m Weight: 46.5 kg Last Vital Signs Temp 37.0 C 11/29/23 20:32 Pulse 92 11/29/23 20:32 Resp 16 11/29/23 20:32 BP 112/78 11/29/23 20:32 Pulse Ox 96 11/29/23 20:32 O2 Del Method Room Air 11/29/23 20:00 Allergies Allergy/AdvReac Type Severity Reaction Status Date / Time cyclobenzaprine Allergy Anaphylaxis Verified 11/29/23 10:01 [From Flexeril] hydrocodone [From Vicodin] Allergy Unresponsiv Verified 11/28/23 15:32 e tramadol Allergy Anaphylaxis Verified 11/29/23 10:01 vancomycin Allergy Hallucinati Verified 11/28/23 15:32 ng Home Medications Medication Instructions Recorded Confirmed Type cholecalciferol (vitamin D3) 100 1,000 unit PO DAILY 10/02/23 11/29/23 History mcg (4,000 unit) capsule meloxicam 15 mg tablet 15 mg PO DAILY 10/02/23 11/29/23 History omeprazole 20 mg tablet,delayed 20 mg PO DAILY 10/02/23 11/29/23 History release tamsulosin 0.4 mg capsule (Flomax) 0.4 mg PO DAILY 10/02/23 11/29/23 History vitamins A,C,L-cwjz-uwullp 2,148 1 tablet PO DAILY 10/02/23 11/29/23 History mcg-113 mg-45 mg-17.4 mg tablet (PreserVision AREDS) nitrofurantoin 100 mg PO Q12H 7 days #14 caps 11/25/23 11/29/23 Rx monohydrate/macrocrystals 100 mg capsule (Macrobid) acetaminophen 650 mg 650 mg PO Q4H PRN Pain (Scale 11/29/23 11/29/23 History tablet,extended release Score 1-3) finasteride 5 mg tablet 5 mg PO DAILY 11/29/23 11/29/23 History ketotifen fumarate 0.025 % (0.035 1 drp EACH EYE Q12H 11/29/23 11/29/23 History %) eye drops mirtazapine 15 mg tablet 15 mg PO DAILY 11/29/23 11/29/23 History Laboratory Tests 11/29/23 11/29/23 11/30/23 07:23 19:27 05:28 WBC 7.7 K/mm3 (4.5-10.0) RBC 3.33 L M/mm3 (4.6-6.20) Hgb 10.8 L g/dL 10.3 L g/dL (14.0-18.0) (14.0-18.0) Hct 33.2 L % 32.4 L % (42.0-52.0) (42.0-52.0) MCV 97.3 fl (80-100) MCH 30.9 pg (26-34) MCHC 31.8 L g/dl (32-36) RDW 12.6 % (11.5-14.5) Plt Count 141 L k/mm3 (150-375) MPV 11.6 H fl (7.4-10.4) Sodium 145 mmol/L (137-145) Potassium 4.3 mmol/L (3.4-5.0) Chloride 109 H mmol/L (98-107) Carbon Dioxide 31 H mmol/L (22-30) Anion Gap 5 mmol/L (4-12) BUN 24 H mg/dL (9-20) Creatinine 0.80 mg/dL (0.7-1.3) Estim Creat Clear Calc 44 ml/min Estimated GFR > 60 (59 - ) Glucose 113 H mg/dL (65-110) Calcium 9.8 mg/dL (8.4-10.2) Magnesium 2.3 mg/dL (1.6-2.3) Procalcitonin 0.1 ng/mL Patient hx anesthesia problems: none Family hx anesthesia problems: none Results Review: All pre-operative results and documents have been reviewed as part of the pre-operative evaluation. 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 Benign prostatic hyperplasia Diet-controlled diabetes mellitus A1c was 5.7% in September 2023. Hyperlipidemia Hypertension Kidney stones Surgical History Surgical History History of lumbar fusion Family History Family History Father Alzheimers disease Mother Diabetes mellitus Hypertension Heart problem Spinocerebellar ataxia Sibling Hypertension Social History Social History (Updated 11/29/23 @ 15:43 by Oumou Roberts PA-C) Social History: Surrogate medical decision maker: Na
[2023-11-30] MEDS: LACTATED RINGERS 1,000 ML 30 ML IV CONT (09:15)
--- NOTE | 2023-11-30 09:30 | WPDHPUPDATE1 ---
History and Physical Update Update Date/Time: 11/30/23 09:30 History and Physical has been reviewed, including an updated exam of the patient. There are NO changes in the patient's condition. Risks, benefits, and alternatives have been discussed and questions answered. Patient agrees to proceed with procedure.
[2023-11-30] MEDS: LIDOCAINE HCL 2% GEL UROJET 10 ML PKG MUCOUS MEM (10:09)
--- NOTE | 2023-11-30 10:20 | P.OP_ITS ---
Procedure Note - Detailed Date of Procedure 11/30/23 Pre-op Diagnosis Gross hematuria Post-op Diagnosis Same Procedure Performed Cystoscopy with evacuation of clots and fulguration Surgeon Oh Purvis MD Anesthesia MAC and Local (Lidocaine jelly) Findings Extremely large prostate. Highly trabeculated bladder with multiple cellules. Clot evacuated. 0 0 bleeding areas at dome of bladder fulgurated Description of Procedure He was correctly identified. Informed consent obtained. From the operating room. He was given monitored anesthesia care as well as lidocaine jelly per urethra. He was prepped and draped in a sterile fashion. Time-out performed. Cystoscopy revealed a greatly enlarged prostate. I entered his bladder there were clots. These were evacuated out with a Dewayne syringe. Once all clots removed I examined his bladder. I could not locate ureteral orifices. He had a heavily trabeculated bladder with multiple cellules. There was some bleeding areas at the dome of the bladder which had circled a cellule/diverticulum. These were fulgurated. Additionally I fulgurated the median lobe of his prostate. All fulguration was done away from the expected location of the renal orifices. There was no additional blood clot or bleeding his bladder. A [address]. He was placed to slow CBI. He was awakened transferred to PACU in stable condition. Estimated Blood Loss 1 Drains Yes (Three way catheter) Pathology None sent Complications No immediate complications
--- NOTE | 2023-11-30 10:38 | PCSTNOTE ---
On hold for MBS today secondary to surgery. Will schedule for tomorrow morning.
[2023-11-30] MEDS: PANTOPRAZOLE 40 MG TABLET PO (13:43)
[2023-11-30] MEDS: FINASTERIDE 5 MG TABLET PO (13:44)
[2023-11-30] MEDS: CHOLECALCIFEROL 1,000 UNITS TABLET 1000 UNITS PO (13:44)
[2023-11-30] MEDS: TAMSULOSIN HCL 0.4 MG CAPSULE PO (13:44)
[2023-11-30] MEDS: DOXYCYCLINE HYCLATE 100 MG TABLET PO ×2 (13:44→20:47)
--- NOTE | 2023-11-30 14:35 | PM.IMPN ---
Progress Note: A&P Assessment and Plan (1) Opacity of lung on imaging study: Code(s): R91.8 - Other nonspecific abnormal finding of lung field Status: Acute (2) Pneumonia: Code(s): J18.9 - Pneumonia, unspecified organism Status: Acute (3) Delirium: Code(s): R41.0 - Disorientation, unspecified Status: Acute (4) Urinary tract infection: Code(s): N39.0 - Urinary tract infection, site not specified Status: Acute (5) Benign prostatic hyperplasia: Code(s): N40.0 - Benign prostatic hyperplasia without lower urinary tract symptoms Status: Acute (6) Hematuria: Code(s): R31.9 - Hematuria, unspecified Status: Acute (7) Clot retention of urine: Code(s): R33.8 - Other retention of urine Status: Acute Plan 78-year-old male with history of dementia, 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 Continuous bladder irrigation placed in the ER. Also noted opacity on CT scan abdomen pelvis right lower lobe 1.8 x 0.8 cm which could be nodules focal atelectasis or pneumonia. Patient started antibiotics. Admitted on 11/29/2023 # BPH with severely enlarged prostate, presented with hematuria and clot. -status post cystoscopy with Dr. Casiano on 11/30/2023 demonstrating highly trabeculated bladder with multiple cellules, areas of bleeding, clot evacuated, bladder fulgurated. -Booth remains in remains on CBI. Continue following with Urology. -continue RATE ENGINEER finasteride and tamsulosin # community-acquired pneumonia -1.8 x 0.8 cm rule/atelectasis/pneumonia seen on right lower lobe on CT scan abdomen pelvis. Patient also complained of pleurisy and a dry cough prior to admission. Will treat as bacterial pneumonia. Five days of doxycycline and ceftriaxone started on 11/29/2023. -monitor for leukocytosis/sepsis/fever -will need follow-up CT to ensure resolution as this could be a nodule. # dementia - reports patient has lost some weight because he has not eaten much. Pending barium swallow with PSYCHOLOGIST RESEARCH ASSISTANT. Dietitian consulted. Glucerna shake order t.i.d. with meals. -at home in his normal environment the patient is not aggressive. He has had aggressive behavior here with delirium/sundowning and has required restraints. Continue good sleep-wake cycle. Avoid narcotics/sedatives. Chronic Conditions -hypertension: At goal, continue to monitor. He is on tamsulosin RATE ENGINEER -diet-controlled diabetes: Continue to monitor -GERD: Continue PT a PPI F/E/N: saline lock IV, replace lytes as needed, regular diet with Glucerna, dietitian consulted GI prophylaxis: Continue RATE ENGINEER PPI DVT prophylaxis: SCDs only, patient has hematuria Lines: Peripheral IV, CBI Code Status: Full code, discussed with Na Dispo: Stable on medical floor. Management of hematuria and pneumonia ongoing. Anticipate dispo to home Medication reconciliation obtained via the following: Nurse completed reconciliation Social Drivers of Health -Living arrangements: Patient lives at home with . He has dementia. He has had some weight loss due to lack of appetite. He has had some aggressive behavior here. -Patient was screened for food insecurity, housing instability, transportation needs, utility difficulties, and interpersonal safety. No needs identified, -High risk for readmission: Yes due to elder age and dementia. Agents of Abuse -Illicit drug abuse: Denies -ETOH abuse: Denies -Tobacco/nicotine: Denies -Energy drinks: Denied Heart Failure MIPS: Does not have heart failure Note to the patient: The Century Cures Act makes medical notes like these available to patients in the interest of transparency. Please be advised this is a medical document. It is i
[2023-11-30] MEDS: ACETAMINOPHEN 325 MG TABLET 650 MG PO (17:17)
[2023-11-30] MEDS: MIRTAZAPINE 15 MG TABLET PO (20:47)
[2023-12-01 05:45] VITALS: BP 94/61; PULSE 104; RESP 18; TEMP 37.3; O2SAT 99
[2023-12-01 08:00] VITALS: O2SAT 98
[2023-12-01 08:05] VITALS: O2SAT 98
[2023-12-01] MEDS: CHOLECALCIFEROL 1,000 UNITS TABLET 1000 UNITS PO (08:50)
[2023-12-01] MEDS: DOXYCYCLINE HYCLATE 100 MG TABLET PO ×2 (08:50→20:05)
[2023-12-01] MEDS: TAMSULOSIN HCL 0.4 MG CAPSULE PO (08:52)
[2023-12-01] MEDS: PANTOPRAZOLE 40 MG TABLET PO (08:52)
[2023-12-01] MEDS: FINASTERIDE 5 MG TABLET PO (08:52)
--- NOTE | 2023-12-01 08:57 | WPDANESPN ---
Anes - Prog Note Post-Op Date/Time: 12/01/23 08:57 Cardiovascular status: normal Respiratory status: normal Airway patency: baseline Mental status: baseline Post-Op hydration status: normal Vital Signs: Last Vital Signs Temp 37.3 C 12/01/23 05:45 Pulse 104 H 12/01/23 05:45 Resp 18 12/01/23 05:45 BP 94/61 L 12/01/23 05:45 Pulse Ox 98 12/01/23 08:05 O2 Del Method Room Air 12/01/23 08:05 FiO2 21 12/01/23 08:05 Pain Score (VAS): 1 I/O: Intake & Output 11/30/23 12/01/23 12/01/23 23:59 07:59 15:59 Intake Total 300 Output Total 300 200 Balance 0 -200 Laboratory Tests 11/30/23 05:28 11/30/23 05:28 Post-procedural complaints: none Patient Feedback: Patient satisfied with anesthetic care.
--- NOTE | 2023-12-01 09:58 | WPDUROPN2 ---
Progress Note: A&P Assessment and Plan (1) Hematuria: Code(s): R31.9 - Hematuria, unspecified Status: Acute Assessment and Plan: S/p cysto, clot evacuation, and fulguration on 11/30/23. Tolerated well Urine clear on slow drip CBI therefore stopped this morning. Will continue to monitor to ensure remaining clear (2) Clot retention of urine: Code(s): R33.8 - Other retention of urine Status: Acute Assessment and Plan: S/p clot evacuation as above Has had ongoing urinary retention with 3 recently failed void trials. Plan to continue wright catheter on discharge and he has outpatient urodynamics scheduled in 2 weeks (3) Benign prostatic hyperplasia: Code(s): N40.0 - Benign prostatic hyperplasia without lower urinary tract symptoms Status: Acute Assessment and Plan: Noted to have markedy enlarged prostate on cystoscopy May consider PAE referral as an outpatient. Will await UDS as above Continue finasteride. Recently stopped tamsulosin due to concerns of cognitive dysfunction but has been restarted this admission and mental status is stable Subjective Subjective Date/Time Seen: 12/01/23 09:58 Interval history: Humberto appears well today. His family is present at the bedside. He is not able to provide much history due to his mental status but his family members supply information. They report that he has been doing well. He tolerated his surgery yesterday without any difficulty. His Wright catheter is draining clear yellow urine. They do report concerns of painful bladder spasms. No concerns of nausea, vomiting, fever, chills. Review of Systems Review of Systems: ROS unobtainable: Yes unobtainable due to mental status Exam Narrative: General: Awake, comfortable, no acute distress HEENT: Normocephalic, atraumatic, sclerae anicteric Respiratory: Normal respiratory effort, no accessory muscle use Abdomen: Nondistended, soft, nontender : Wright catheter draining clear yellow urine with CBI off Skin: Normal coloration, warm and dry Neurologic: No focal neuro deficits noted Psychiatric: Appropriate mood and affect, judgment and insight poor Objective Data Vital Signs Vital Signs: Vital Signs - 24 hr 11/30/23 10:23 11/30/23 11:05 11/30/23 11:20 Temperature 98.0 F Pulse Rate 73 68 71 Respiratory Rate 14 18 18 Blood Pressure 131/69 121/70 117/64 Pulse Oximetry 99 100 100 Oxygen Delivery Room Air Room Air Room Air Fraction of Inspired Oxygen 11/30/23 11:30 11/30/23 10:35 11/30/23 10:50 Temperature Pulse Rate 76 67 73 Respiratory Rate 18 16 18 Blood Pressure 117/77 108/87 123/65 Pulse Oximetry 100 97 99 Oxygen Delivery Room Air Room Air Room Air Fraction of Inspired Oxygen 11/30/23 11:50 11/30/23 12:05 11/30/23 12:35 Temperature 97.2 F L 97.4 F L 97.5 F L Pulse Rate 76 73 79 Respiratory Rate 18 18 16 Blood Pressure 116/53 L 110/59 L 101/62 Pulse Oximetry 100 98 96 Oxygen Delivery Fraction of Inspired Oxygen 11/30/23 13:35 11/30/23 14:00 11/30/23 20:27 Temperature 98.3 F 98.4 F 98.6 F Pulse Rate 85 76 83 Respiratory Rate 18 18 16 Blood Pressure 120/74 109/60 98/55 L Pulse Oximetry 99 99 98 Oxygen Delivery Fraction of Inspired Oxygen 11/30/23 20:56 11/30/23 20:00 12/01/23 05:45 Temperature 99.2 F Pulse Rate 104 H Respiratory Rate 18 Blood Pressure 105/58 L 94/61 L Pulse Oximetry 98 99 Oxygen Delivery Room Air Fraction of Inspired Oxygen 12/01/23 08:05 Temperature Pulse Rate Respiratory Rate Blood Pressure Pulse Oximetry 98 Oxygen Delivery Room Air Fraction of Inspired Oxygen 21 Intake/Output Intake/Output: Intake & Output 11/28/23 11/29/23 11/30/23 12/01/23 23:59 23:59 23:59 23:59 Intake Total 3550 2450 120 Output Total 27725 4000 200 Balance -86386 -1550 -80 Meds/Results Medications: Active Medications Generic Name Dose Route Start Last Admi
[2023-12-01] MEDS: ACETAMINOPHEN 325 MG TABLET 650 MG PO ×2 (12:10→20:05)
[2023-12-01 14:16] VITALS: BP 96/50
--- NOTE | 2023-12-01 15:34 | PCSTNOTE ---
Please refer to the Modified Barium Swallow Evaluation in the EMR.
[2023-12-01] MEDS: QUEtiapine FUMARATE 25 MG TABLET PO (16:05)
--- NOTE | 2023-12-01 17:22 | PC.NURSE ---
1600 Dr Goldberg on floor and notified of patient getting more confused and aggressive when asked not to get up alone.Trying to pull his wright out and yelling at his . Patient calling staff names.
--- NOTE | 2023-12-01 17:51 | PM.IMPN ---
Progress Note: A&P Assessment and Plan (1) Opacity of lung on imaging study: Code(s): R91.8 - Other nonspecific abnormal finding of lung field Status: Acute (2) Pneumonia: Code(s): J18.9 - Pneumonia, unspecified organism Status: Acute (3) Delirium: Code(s): R41.0 - Disorientation, unspecified Status: Acute (4) Urinary tract infection: Code(s): N39.0 - Urinary tract infection, site not specified Status: Acute (5) Benign prostatic hyperplasia: Code(s): N40.0 - Benign prostatic hyperplasia without lower urinary tract symptoms Status: Acute (6) Hematuria: Code(s): R31.9 - Hematuria, unspecified Status: Acute (7) Clot retention of urine: Code(s): R33.8 - Other retention of urine Status: Acute Plan 78-year-old male with history of dementia, 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 Continuous bladder irrigation placed in the ER. Also noted opacity on CT scan abdomen pelvis right lower lobe 1.8 x 0.8 cm which could be nodules focal atelectasis or pneumonia. Patient started antibiotics. Admitted on 11/29/2023 Appears to be clear from a urology standpoint. Continue antibiotics for possible pneumonia. Hypotension could be due to dehydration. Will continue to monitor overnight. Starting Seroquel 25 mg p.o. q.h.s. for psychotic/behavioral disturbances due to dementia. Check EKG to require baseline QT interval. # BPH with severely enlarged prostate, presented with hematuria and clot. -status post cystoscopy with Dr. Casiano on 11/30/2023 demonstrating highly trabeculated bladder with multiple cellules, areas of bleeding, clot evacuated, bladder fulgurated. -Booth remains in remains on CBI. Continue following with Urology. -continue MARKETING PROFESSIONAL finasteride and tamsulosin # community-acquired pneumonia -1.8 x 0.8 cm rule/atelectasis/pneumonia seen on right lower lobe on CT scan abdomen pelvis. Patient also complained of pleurisy and a dry cough prior to admission. Will treat as bacterial pneumonia. Five days of doxycycline and ceftriaxone started on 11/29/2023. -monitor for leukocytosis/sepsis/fever -will need follow-up CT to ensure resolution as this could be a nodule. # dementia - reports patient has lost some weight because he has not eaten much. Pending barium swallow with GREEN MEAT PACKER. Dietitian consulted. Glucercristopher roqueke order t.i.d. with meals. -at home in his normal environment the patient is not aggressive. He has had aggressive behavior here with delirium/sundowning and has required restraints. Continue good sleep-wake cycle. Avoid narcotics/sedatives. Chronic Conditions -hypertension: At goal, continue to monitor. He is on tamsulosin MARKETING PROFESSIONAL -diet-controlled diabetes: Continue to monitor -GERD: Continue PT a PPI F/E/N: saline lock IV, replace lytes as needed, regular diet with Kathleen, dietitian consulted GI prophylaxis: Continue MARKETING PROFESSIONAL PPI DVT prophylaxis: SCDs only, patient has hematuria Lines: Peripheral IV, CBI Code Status: Full code, discussed with Na Dispo: Stable on medical floor. Management of hematuria and pneumonia ongoing. Anticipate dispo to home Medication reconciliation obtained via the following: Nurse completed reconciliation Social Drivers of Health -Living arrangements: Patient lives at home with . He has dementia. He has had some weight loss due to lack of appetite. He has had some aggressive behavior here. -Patient was screened for food insecurity, housing instability, transportation needs, utility difficulties, and interpersonal safety. No needs identified, -High risk for readmission: Yes due to elder age and dementia. Agents of Abuse -Illicit drug abuse: Denies -ETOH abuse: Denies -Tobacco/lucy
[2023-12-01 19:48] VITALS: BP 108/60; PULSE 88; RESP 18; TEMP 37.6; O2SAT 98
[2023-12-01] MEDS: MIRTAZAPINE 15 MG TABLET PO (20:06)
--- NOTE | 2023-12-02 | ECG_ITS ---
Test Date: 2023-12-02 12:47:52 Measurements Intervals [place] Rate: 98 P: 86 [place]: 128 QRS: -11 QRSD: 89 T: 60 QT: 258 QTc: 330 Interpretive Statements SINUS RHYTHM NONSPECIFIC T-WAVE ABNORMALITY ABNORMAL ECG No previous ECG available for comparison Electronically Signed On 12-02-2023 15:17:04 CDT by Donnell Jauregui M.D.
[2023-12-02 06:00] VITALS: BP 110/55; PULSE 84; RESP 18; TEMP 37.3; O2SAT 97
[2023-12-02 06:22] LABS: Hematocrit 26.6 % (42.0-52.0); Hemoglobin 8.5 g/dL (14.0-18.0); Mean Corpuscular Hemoglobin 30.7 pg (26-34); Mean Platelet Volume 10.9 fl (7.4-10.4); Platelet Count Result 104 k/mm3 (150-375); Red Blood Count 2.77 M/mm3 (4.6-6.20); Red Cell Distribution Width 12.3 % (11.5-14.5); White Blood Count 3.2 K/mm3 (4.5-10.0)
[2023-12-02 06:34] LABS: Anion Gap 3 mmol/L (4-12); Blood Urea Nitrogen 18 mg/dL (9-20); Carbon Dioxide 32 mmol/L (22-30); Chloride 105 mmol/L (98-107); Estimated CRCL calculation 53 ml/min; Estimated Glomerular Filt Rate > 60; Glucose 114 mg/dL (65-110); Potassium 3.5 mmol/L (3.4-5.0); Sodium 140 mmol/L (137-145)
[2023-12-02 08:00] VITALS: O2SAT 97
--- NOTE | 2023-12-02 09:14 | WPDUROPN2 ---
Progress Note: A&P Assessment and Plan (1) Hematuria: Code(s): R31.9 - Hematuria, unspecified Status: Acute Assessment and Plan: S/p cysto, clot evacuation, and fulguration on 11/30/23. Tolerated well CBI discontinued 12/01/23 and urine remains clear light pink (2) Clot retention of urine: Code(s): R33.8 - Other retention of urine Status: Acute Assessment and Plan: S/p clot evacuation as above Has had ongoing urinary retention with 3 recently failed void trials. Plan to continue wright catheter on discharge and he has outpatient urodynamics scheduled in 2 weeks (3) Benign prostatic hyperplasia: Code(s): N40.0 - Benign prostatic hyperplasia without lower urinary tract symptoms Status: Acute Assessment and Plan: Noted to have markedy enlarged prostate on cystoscopy May consider PAE referral as an outpatient. Will await UDS as above Continue finasteride. Recently stopped tamsulosin due to concerns of cognitive dysfunction but has been restarted this admission and mental status is stable Subjective Subjective Date/Time Seen: 12/02/23 09:14 Interval history: Humberto is sitting up in bed eating breakfast. Not able to provide any history. Family present at bedside report no concerns. Review of Systems Review of Systems: ROS unobtainable: Yes unobtainable due to mental status Exam Narrative: General: Awake, comfortable, no acute distress HEENT: Normocephalic, atraumatic, sclerae anicteric Respiratory: Normal respiratory effort, no accessory muscle use Abdomen: Nondistended, soft, nontender : Wright catheter draining clear, light pink tinged urine off CBI Skin: Normal coloration, warm and dry Neurologic: No focal neuro deficits noted Psychiatric: Appropriate mood and affect, judgment and insight poor Objective Data Vital Signs Vital Signs: Vital Signs - 24 hr 12/01/23 14:16 12/01/23 19:48 12/02/23 06:00 Temperature 99.6 F 99.1 F Pulse Rate 88 84 Respiratory Rate 18 18 Blood Pressure 96/50 L 108/60 110/55 L Pulse Oximetry 98 97 Oxygen Delivery 12/02/23 08:00 Temperature Pulse Rate Respiratory Rate Blood Pressure Pulse Oximetry 97 Oxygen Delivery Room Air Intake/Output Intake/Output: Intake & Output 11/29/23 11/30/23 12/01/23 12/02/23 23:59 23:59 23:59 23:59 Intake Total 3550 2450 910 150 Output Total 86906 4000 700 300 Balance -07349 -1550 210 -150 Meds/Results Medications: Active Medications Generic Name Dose Route Start Last Admin Trade Name Freq PRN Reason Stop Dose Admin Acetaminophen 650 mg 11/30/23 11:37 12/01/23 20:05 Acetaminophen 325 Mg Tablet PO 650 mg Q4H PRN Administration Pain (Scale Score 1-3) Doxycycline Hyclate 100 mg 11/30/23 09:00 12/01/23 20:05 Doxycycline Hyclate 100 Mg Tablet PO 100 mg Q12HR KAM Administration Finasteride 5 mg 11/30/23 09:00 12/01/23 08:52 Finasteride 5 Mg Tablet PO 5 mg DAILY KAM Administration Ceftriaxone Sodium 1 gm in 50 mls @ 100 mls/hr 11/30/23 00:00 12/02/23 00:43 Rocephin 1 Gm/Ns 50 Ml IVPB Infused Q24H KAM Infusion Mirtazapine 15 mg 11/29/23 21:00 12/01/23 20:06 Mirtazapine 15 Mg Tablet PO 15 mg HS KAM Administration Miscellaneous Information 1 each 11/29/23 00:01 12/01/23 00:07 Ketotifen Nonformulary. Can Patient Bring From Home Or Hold Till Discharge? XX 12/29/23 00:00 Not Given CLARIFY KAM Multivitamins/Minerals 1 tablet 11/30/23 09:00 12/01/23 08:48 Opti-Gen Tab PO Not Given QAM [facility] Non-Formulary Medication 1 drop 11/29/23 16:00 Ketotifen Fumarate EACH EYE 12/29/23 15:59 Q12H KAM Oxybutynin Chloride 5 mg 12/01/23 09:59 Oxybutynin Chloride 5 Mg Tablet PO TID PRN bladder spasm Pantoprazole Sodium 40 mg 11/30/23 09:00 12/01/23 08:52 Pantoprazole 40 Mg Tablet PO 40 mg QAM KAM Administration Quetiapine Fumarate 25 mg 11/30
[2023-12-02] MEDS: PANTOPRAZOLE 40 MG TABLET PO (10:49)
[2023-12-02] MEDS: DOXYCYCLINE HYCLATE 100 MG TABLET PO ×2 (10:50→20:33)
[2023-12-02] MEDS: FINASTERIDE 5 MG TABLET PO (10:50)
[2023-12-02] MEDS: CHOLECALCIFEROL 1,000 UNITS TABLET 1000 UNITS PO (10:50)
[2023-12-02] MEDS: TAMSULOSIN HCL 0.4 MG CAPSULE PO (10:50)
[2023-12-02 13:53] VITALS: BP 99/59; PULSE 100; RESP 18; TEMP 37.7; O2SAT 100
--- NOTE | 2023-12-02 14:37 | PC.NURSE ---
Dr Trejo notified of temp 99.9.
[2023-12-02 15:06] VITALS: TEMP 37.7
[2023-12-02] MEDS: ACETAMINOPHEN 325 MG TABLET 650 MG PO (15:06)
--- NOTE | 2023-12-02 15:32 | PCPTNOTE ---
Attempted PT evaluation, per RN pt too fatigued to safely participate in skilled therapy this date. Will follow.
--- NOTE | 2023-12-02 16:12 | PM.IMPN ---
Progress Note: A&P Assessment and Plan (1) Opacity of lung on imaging study: Code(s): R91.8 - Other nonspecific abnormal finding of lung field Status: Acute (2) Pneumonia: Code(s): J18.9 - Pneumonia, unspecified organism Status: Acute (3) Delirium: Code(s): R41.0 - Disorientation, unspecified Status: Acute (4) Urinary tract infection: Code(s): N39.0 - Urinary tract infection, site not specified Status: Acute (5) Benign prostatic hyperplasia: Code(s): N40.0 - Benign prostatic hyperplasia without lower urinary tract symptoms Status: Acute (6) Hematuria: Code(s): R31.9 - Hematuria, unspecified Status: Acute (7) Clot retention of urine: Code(s): R33.8 - Other retention of urine Status: Acute Plan 78-year-old male with history of dementia, 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 Continuous bladder irrigation placed in the ER. Also noted opacity on CT scan abdomen pelvis right lower lobe 1.8 x 0.8 cm which could be nodules focal atelectasis or pneumonia. Patient started antibiotics. Admitted on 11/29/2023 # BPH with severely enlarged prostate, presented with hematuria and clot. -status post cystoscopy with Dr. Casiano on 11/30/2023 demonstrating highly trabeculated bladder with multiple cellules, areas of bleeding, clot evacuated, bladder fulgurated. -on 12/01 patient has dark red urine in the Booth bag again. Urology being notified currently. Not currently on CBI -patient has acute blood loss anemia. Continue to monitor and transfuse if less than 7 or becomes hemodynamically unstable. -continue SPECIALTY PERSON finasteride and tamsulosin # community-acquired pneumonia -1.8 x 0.8 cm rule/atelectasis/pneumonia seen on right lower lobe on CT scan abdomen pelvis. Patient also complained of pleurisy and a dry cough prior to admission. Will treat as bacterial pneumonia. Five days of doxycycline and ceftriaxone started on 11/29/2023. -monitor for leukocytosis/sepsis/fever -will need follow-up CT to ensure resolution as this could be a nodule. -patient has temperature of 99.9?. He does have low blood pressure but this could be due to loss of blood. Check blood cultures. If spiking temperature above 100 escalate antibiotics. There were changed to Augmentin doxycycline p.o. today on 12/02/2023. # dementia - reports patient has lost some weight because he has not eaten much. Pending barium swallow with DIPPER FISH. Dietitian consulted. Kathleen can order t.i.d. with meals. -at home in his normal environment the patient is not aggressive. He has had aggressive behavior here with delirium/sundowning and has required restraints. Continue good sleep-wake cycle. Avoid narcotics/sedatives. -on 12/01 he no longer requires restraints. Lengthy discussion of risks versus benefits of surgical had with the . Seroquel 25 mg p.o. q.h.s. started on 11/30 it appears he is responding to that well. has been tearful about caring for him at home. #hx of HTN -he is on tamsulosin SPECIALTY PERSON. -borderline low blood pressure on 12/01. Start isotonic fluids at 100 cc/hour. Chronic Conditions -hypertension: -diet-controlled diabetes: Continue to monitor -GERD: Continue PT a PPI F/E/N: Normal saline at 100 cc/hour,, replace lytes as needed, regular diet with isabelal Wangitian consulted GI prophylaxis: Continue SPECIALTY PERSON PPI DVT prophylaxis: SCDs only, patient has hematuria Lines: Peripheral IV, CBI Code Status: Full code, discussed with Na Dispo: Stable on medical floor. Management of hematuria and pneumonia ongoing. Anticipate dispo to home Medication reconciliation obtained via the following: Nurse completed reconciliation Social Drivers of Health -Living
[2023-12-02] MEDS: SODIUM CHLORIDE 0.9% IV 1,000 ML 100 ML IV CONT (16:48)
[2023-12-02] MEDS: QUEtiapine FUMARATE 25 MG TABLET PO (20:33)
[2023-12-02] MEDS: AMOXICILLIN/CLAVULANATE K 875-125 MG TAB 1 TABLET PO (20:33)
[2023-12-02] MEDS: MIRTAZAPINE 15 MG TABLET PO (20:33)
[2023-12-02 21:15] VITALS: BP 91/49; PULSE 77; RESP 16; TEMP 37.4; O2SAT 96
[2023-12-02 21:17] VITALS: BP 92/46
[2023-12-03] MEDS: SODIUM CHLORIDE 0.9% IV 1,000 ML 100 ML IV CONT ×2 (02:21→18:08)
[2023-12-03 04:54] VITALS: BP 118/59; PULSE 77; RESP 16; TEMP 36.6; O2SAT 96
[2023-12-03 07:18] LABS: Hematocrit 23.6 % (42.0-52.0); Hemoglobin 7.5 g/dL (14.0-18.0); Immature Platelet Fraction Pct 4.2 % (0.9-11.2); Mean Corpuscular HGB Conc 31.8 g/dl (32-36); Mean Corpuscular Hemoglobin 30.6 pg (26-34); Mean Corpuscular Volume 96.3 fl (80-100); Mean Platelet Volume 11.1 fl (7.4-10.4); Platelet Count Result 96 k/mm3 (150-375); Red Blood Count 2.45 M/mm3 (4.6-6.20); Red Cell Distribution Width 12.3 % (11.5-14.5); White Blood Count 3.8 K/mm3 (4.5-10.0)
[2023-12-03 07:33] LABS: Anion Gap 1 mmol/L (4-12); Blood Urea Nitrogen 13 mg/dL (9-20); Calcium 8.4 mg/dL (8.4-10.2); Carbon Dioxide 30 mmol/L (22-30); Chloride 109 mmol/L (98-107); Estimated CRCL calculation 54 ml/min; Estimated Glomerular Filt Rate > 60; Glucose 104 mg/dL (65-110); Magnesium 1.8 mg/dL (1.6-2.3); Potassium 3.7 mmol/L (3.4-5.0); Sodium 140 mmol/L (137-145)
--- NOTE | 2023-12-03 08:20 | WPDUROPN2 ---
Progress Note: A&P Assessment and Plan (1) Hematuria: Code(s): R31.9 - Hematuria, unspecified Status: Acute Assessment and Plan: S/p cysto, clot evacuation, and fulguration on 11/30/23. Tolerated well CBI discontinued 12/01/23 and urine remains clear light pink Monitor H&H closely. Decline this AM though urine remains clear so doubt source (2) Clot retention of urine: Code(s): R33.8 - Other retention of urine Status: Acute Assessment and Plan: S/p clot evacuation as above Has had ongoing urinary retention with 3 recently failed void trials. Plan to continue wright catheter on discharge and he has outpatient urodynamics scheduled in 2 weeks (3) Benign prostatic hyperplasia: Code(s): N40.0 - Benign prostatic hyperplasia without lower urinary tract symptoms Status: Acute Assessment and Plan: Noted to have markedy enlarged prostate on cystoscopy May consider PAE referral as an outpatient. Will await UDS as above Continue finasteride. Recently stopped tamsulosin due to concerns of cognitive dysfunction with some improvement. Tamsulosin resumed during admission but will discontinue again per family request. Subjective Subjective Date/Time Seen: 12/03/23 8:20 Interval history: Remains confused today. present at bedside. He has been ambulating with therapy. She noticed his urine was darker yesterday evening but today it is clear yellow off CBI. She wants to stop his tamsulosin again due to concerns of mental status. They previously stopped this prior to admission and she felt it improved his confusion. Review of Systems Review of Systems: ROS unobtainable: Yes unobtainable due to mental status Exam Narrative: General: Awake, comfortable, no acute distress HEENT: Normocephalic, atraumatic, sclerae anicteric Respiratory: Normal respiratory effort, no accessory muscle use Abdomen: Nondistended, soft, nontender : Wright catheter draining clear, barely pink tinged urine off CBI Skin: Normal coloration, warm and dry Neurologic: No focal neuro deficits noted Psychiatric: Appropriate mood and affect, judgment and insight poor Objective Data Vital Signs Vital Signs: Vital Signs - 24 hr 12/02/23 21:15 12/02/23 21:17 12/03/23 04:54 Temperature 99.4 F 98 F Pulse Rate 77 77 Respiratory Rate 16 16 Blood Pressure 91/49 L 92/46 L 118/59 L Pulse Oximetry 96 96 Oxygen Delivery 12/03/23 08:00 12/03/23 08:22 12/03/23 14:00 Temperature 98.3 F Pulse Rate 82 Respiratory Rate 15 Blood Pressure 111/59 L Pulse Oximetry 98 Oxygen Delivery Room Air Room Air Intake/Output Intake/Output: Intake & Output 11/30/23 12/01/23 12/02/23 12/03/23 23:59 23:59 23:59 23:59 Intake Total 2450 910 1493 1155 Output Total 4000 490 233 8666 Balance -1550 210 543 -395 Meds/Results Medications: Active Medications Generic Name Dose Route Start Last Admin Trade Name Freq PRN Reason Stop Dose Admin Acetaminophen 650 mg 11/30/23 11:37 12/02/23 15:06 Acetaminophen 325 Mg Tablet PO 650 mg Q4H PRN Administration Pain (Scale Score 1-3) Amoxicillin/Clavulanate Potassium 1 tablet 12/02/23 21:00 12/03/23 09:32 Amoxicillin/Clavulanate K 875-125 Mg Tab PO 12/04/23 09:01 1 tablet Q12HR KAM Administration Doxycycline Hyclate 100 mg 11/30/23 09:00 12/03/23 09:32 Doxycycline Hyclate 100 Mg Tablet PO 12/04/23 21:01 100 mg Q12HR KAM Administration Finasteride 5 mg 11/30/23 09:00 12/03/23 09:31 Finasteride 5 Mg Tablet PO 5 mg DAILY KAM Administration Sodium Chloride 1,000 mls @ 100 mls/hr 12/02/23 16:20 12/03/23 02:21 Normal Saline Iv IV CONT 100 mls/hr .Q10H KAM Administration Iron Sucrose 200 mg 12/03/23 09:00 12/03/23 10:09 Iron Sucrose Complex 100 Mg/5 Ml Vial IV PUSH 12/07/23 09:01 200 mg DAILY KAM Administration Mirtazapine 15 mg 11/29/23 21:00 12/02/23 20:33 Mi
--- NOTE | 2023-12-03 08:48 | PM.IMPN ---
Progress Note: A&P Assessment and Plan (1) Opacity of lung on imaging study: Code(s): R91.8 - Other nonspecific abnormal finding of lung field Status: Acute (2) Pneumonia: Code(s): J18.9 - Pneumonia, unspecified organism Status: Acute (3) Delirium: Code(s): R41.0 - Disorientation, unspecified Status: Acute (4) Urinary tract infection: Code(s): N39.0 - Urinary tract infection, site not specified Status: Acute (5) Benign prostatic hyperplasia: Code(s): N40.0 - Benign prostatic hyperplasia without lower urinary tract symptoms Status: Acute (6) Hematuria: Code(s): R31.9 - Hematuria, unspecified Status: Acute (7) Clot retention of urine: Code(s): R33.8 - Other retention of urine Status: Acute Plan 78-year-old male with history of dementia, 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 Continuous bladder irrigation placed in the ER. Also noted opacity on CT scan abdomen pelvis right lower lobe 1.8 x 0.8 cm which could be nodules focal atelectasis or pneumonia. Patient started antibiotics. Admitted on 11/29/2023 # BPH with severely enlarged prostate, presented with hematuria and clot. -status post cystoscopy with Dr. Casiano on 11/30/2023 demonstrating highly trabeculated bladder with multiple cellules, areas of bleeding, clot evacuated, bladder fulgurated. -on 12/01 patient has dark red urine in the Booth bag again. Urology being notified currently. Not currently on CBI -continue HOSPICE MUSIC THERAPY finasteride and tamsulosin acute blood loss anemia. Hemoglobin continue to drop 7.5 from 13.6 on 11/24 Possible due to hematuria Continue to monitor Start Venofer IV 200 mg IV daily x5 pt is hemodynamically unstable since 11/30 1 PRBC ordered on hold f/u Hb q6h # community-acquired pneumonia -1.8 x 0.8 cm rule/atelectasis/pneumonia seen on right lower lobe on CT scan abdomen pelvis. Patient also complained of pleurisy and a dry cough prior to admission. Will treat as bacterial pneumonia. Five days of doxycycline and ceftriaxone started on 11/29/2023. -monitor for leukocytosis/sepsis/fever -will need follow-up CT to ensure resolution as this could be a nodule. -patient has temperature of 99.9?. He does have low blood pressure but this could be due to loss of blood. Check blood cultures December 01, no growth so far. changed to Augmentin doxycycline p.o. today on 12/02/2023. c/w the abx today # dementia - reports patient has lost some weight because he has not eaten much. Pending barium swallow with CONTROL ELECTRICIAN. Dietitian consulted. Kathleen can order t.i.d. with meals. -at home in his normal environment the patient is not aggressive. He has had aggressive behavior here with delirium/sundowning and has required restraints. Continue good sleep-wake cycle. Avoid narcotics/sedatives. -on 12/01 he no longer requires restraints. Lengthy discussion of risks versus benefits of surgical had with the . Seroquel 25 mg p.o. q.h.s. started on 11/30 it appears he is responding to that well. has been tearful about caring for him at home. #hx of HTN -he is on tamsulosin H[facility]IC THERAPY. -borderline low blood pressure on 12/01. Start isotonic fluids at 100 cc/hour. Chronic Conditions -hypertension: -diet-controlled diabetes: Continue to monitor -GERD: Continue PT a PPI F/E/N: Normal saline at 100 cc/hour,, replace lytes as needed, regular diet with Kathleen, dietitian consulted GI prophylaxis: Continue HOSPICE MUSIC THERAPY PPI DVT prophylaxis: SCDs only, patient has hematuria Lines: Peripheral IV, CBI Code Status: Full code, discussed with Na Dispo: Stable on medical floor. Management of hematuria and pneumonia ongoing. Anticipate dispo to home Subjective Date/time seen: 12/03/23 08:
[2023-12-03] MEDS: CHOLECALCIFEROL 1,000 UNITS TABLET 1000 UNITS PO (09:31)
[2023-12-03] MEDS: FINASTERIDE 5 MG TABLET PO (09:31)
[2023-12-03] MEDS: PANTOPRAZOLE 40 MG TABLET PO (09:31)
[2023-12-03] MEDS: OPTI-GEN TAB 1 TABLET PO (09:31)
[2023-12-03] MEDS: AMOXICILLIN/CLAVULANATE K 875-125 MG TAB 1 TABLET PO ×2 (09:32→20:50)
[2023-12-03] MEDS: DOXYCYCLINE HYCLATE 100 MG TABLET PO ×2 (09:32→20:50)
[2023-12-03] MEDS: SODIUM CHLORIDE 0.9% IV 250 ML 30 ML IV CONT (09:33)
[2023-12-03 09:56] LABS: Hematocrit 26.6 % (42.0-52.0); Hemoglobin 8.5 g/dL (14.0-18.0)
[2023-12-03] MEDS: IRON SUCROSE COMPLEX 100 MG/5 ML VIAL 200 MG IV PUSH (10:09)
--- NOTE | 2023-12-03 10:17 | PCNFU ---
Nutrition Follow-Up Complete: Severe protein calorie malnutrition related to inadequate energy intake as evidenced by a significant weight loss of -29% x 1 year, poor po intake greater than 1 month, and NFPE findings for severe subcutaneous fat loss (cheeks) severe muscle wasting (confucianist, clavicle, shoulder). Goal:PO intake 75% of meals and supplements Pt progressing towards goal. Pt current nutrition is Regular, Glucerna shakes BID. Nutrition recommendation: continue with current plan of care Last recorded weight is 50.8 kg. Bowel Motility: +BM 12/01 Labs Reviewed: Hgb:7.5, HCT:23.6 Meds Noted: zofran, protonix Skin: no skin issues noted Additional Notes: pt continues on a regular diet, family bringing in Boost shakes per preference but noted Glucerna shakes have been ordered BID, pt drinking one during assessment. Intake 50-75% at this time. assists and encourages. Agree with diet orders. Monitor intake, wt, labs. Follow up in 7 days.
[2023-12-03 14:00] VITALS: BP 111/59; PULSE 82; RESP 15; TEMP 36.8; O2SAT 98
[2023-12-03 16:47] LABS: Hematocrit 23.1 % (42.0-52.0); Hemoglobin 7.4 g/dL (14.0-18.0)
--- NOTE | 2023-12-03 18:04 | PC.NURSE ---
[address] Perez about hgb level of 7.4, he stated to wait to transfuse if below 7.0, H/H are being drawn Q6
[2023-12-03 20:00] VITALS: PULSE 77; RESP 16; O2SAT 98
[2023-12-03] MEDS: MIRTAZAPINE 15 MG TABLET PO (20:50)
[2023-12-03] MEDS: QUEtiapine FUMARATE 25 MG TABLET PO (20:50)
[2023-12-03 21:18] VITALS: BP 126/73; PULSE 77; RESP 16; TEMP 37.2; O2SAT 99
[2023-12-03 21:21] VITALS: O2SAT 98
[2023-12-03 21:42] LABS: Hematocrit 21.8 % (42.0-52.0); Hemoglobin 7.3 g/dL (14.0-18.0)
[2023-12-04] MEDS: SODIUM CHLORIDE 0.9% IV 1,000 ML 100 ML IV CONT (03:25)
[2023-12-04] MEDS: ACETAMINOPHEN ELIXIR 325 MG/10.15 ML UDC 650 MG PO (03:26)
[2023-12-04 05:53] LABS: Hematocrit 22.3 % (42.0-52.0); Hemoglobin 7.3 g/dL (14.0-18.0)
[2023-12-04 06:00] VITALS: BP 125/67; PULSE 67; RESP 20; TEMP 36.4; O2SAT 99
--- NOTE | 2023-12-04 08:49 | PM.IMPN ---
Progress Note: A&P Assessment and Plan (1) Opacity of lung on imaging study: Code(s): R91.8 - Other nonspecific abnormal finding of lung field Status: Acute (2) Pneumonia: Code(s): J18.9 - Pneumonia, unspecified organism Status: Acute (3) Delirium: Code(s): R41.0 - Disorientation, unspecified Status: Acute (4) Urinary tract infection: Code(s): N39.0 - Urinary tract infection, site not specified Status: Acute (5) Benign prostatic hyperplasia: Code(s): N40.0 - Benign prostatic hyperplasia without lower urinary tract symptoms Status: Acute (6) Hematuria: Code(s): R31.9 - Hematuria, unspecified Status: Acute (7) Clot retention of urine: Code(s): R33.8 - Other retention of urine Status: Acute Plan 78-year-old male with history of dementia, 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 Continuous bladder irrigation placed in the ER. Also noted opacity on CT scan abdomen pelvis right lower lobe 1.8 x 0.8 cm which could be nodules focal atelectasis or pneumonia. Patient started antibiotics. Admitted on 11/29/2023 # BPH with severely enlarged prostate, presented with hematuria and clot. -status post cystoscopy with Dr. Casiano on 11/30/2023 demonstrating highly trabeculated bladder with multiple cellules, areas of bleeding, clot evacuated, bladder fulgurated. -on 12/01 patient has dark red urine in the Booth bag again. Urology being notified currently. Not currently on CBI -continue LEAD JAVA SOFTWARE ENGINEER finasteride and tamsulosin acute blood loss anemia. Hemoglobin continue to drop 7.5 from 13.6 on 11/24 Possible due to hematuria Continue to monitor Start Venofer IV 200 mg IV daily x5 pt is hemodynamically unstable since 11/30 1 PRBC ordered on hold f/u Hb q6h 12/03: Hemoglobin stable, no need transfusion, continue of iron supplements # community-acquired pneumonia -1.8 x 0.8 cm rule/atelectasis/pneumonia seen on right lower lobe on CT scan abdomen pelvis. Patient also complained of pleurisy and a dry cough prior to admission. Will treat as bacterial pneumonia. Five days of doxycycline and ceftriaxone started on 11/29/2023. -monitor for leukocytosis/sepsis/fever -will need follow-up CT to ensure resolution as this could be a nodule. -patient has temperature of 99.9?. He does have low blood pressure but this could be due to loss of blood. Check blood cultures December 01, no growth so far. changed to Augmentin doxycycline p.o. today on 12/02/2023. c/w the abx today # dementia - reports patient has lost some weight because he has not eaten much. Pending barium swallow with ACCOUNT RELATIONSHIP MANAGER. Dietitian consulted. Kathleen can order t.i.d. with meals. -at home in his normal environment the patient is not aggressive. He has had aggressive behavior here with delirium/sundowning and has required restraints. Continue good sleep-wake cycle. Avoid narcotics/sedatives. -on 12/01 he no longer requires restraints. Lengthy discussion of risks versus benefits of surgical had with the . Seroquel 25 mg p.o. q.h.s. started on 11/30 it appears he is responding to that well. has been tearful about caring for him at home. 12/03: Patient mental status continued to improve alert oriented x3 #hx of HTN -he is on tamsulosin LEAD JAVA SOFTWARE ENGINEER. -borderline low blood pressure on 12/01. Start isotonic fluids at 100 cc/hour. DC IV fluid, blood pressure stable 12/03 Chronic Conditions -hypertension: -diet-controlled diabetes: Continue to monitor -GERD: Continue PT a PPI F/E/N: Normal saline at 100 cc/hour,, replace lytes as needed, regular diet with Kathleen dietitian consulted GI prophylaxis: Continue LEAD JAVA SOFTWARE ENGINEER PPI DVT prophylaxis: SCDs only, patient has hematuria Lines: Peripheral IV, CBI Code Status: Full code
--- NOTE | 2023-12-04 08:52 | PM.DS ---
DS: Admitting Diagnosis Discharge Date 12/03 Admitting Diagnosis (1) Opacity of lung on imaging study: Code(s): R91.8 - Other nonspecific abnormal finding of lung field Status: Acute (2) Pneumonia: Code(s): J18.9 - Pneumonia, unspecified organism Status: Acute (3) Delirium: Code(s): R41.0 - Disorientation, unspecified Status: Acute (4) Urinary tract infection: Code(s): N39.0 - Urinary tract infection, site not specified Status: Acute (5) Benign prostatic hyperplasia: Code(s): N40.0 - Benign prostatic hyperplasia without lower urinary tract symptoms Status: Acute (6) Hematuria: Code(s): R31.9 - Hematuria, unspecified Status: Acute (7) Clot retention of urine: Code(s): R33.8 - Other retention of urine Status: Acute DS: Discharge Diagnosis Discharge Diagnosis (1) Opacity of lung on imaging study: Code(s): R91.8 - Other nonspecific abnormal finding of lung field Status: Acute (2) Pneumonia: Code(s): J18.9 - Pneumonia, unspecified organism Status: Acute (3) Delirium: Code(s): R41.0 - Disorientation, unspecified Status: Acute (4) Urinary tract infection: Code(s): N39.0 - Urinary tract infection, site not specified Status: Acute (5) Benign prostatic hyperplasia: Code(s): N40.0 - Benign prostatic hyperplasia without lower urinary tract symptoms Status: Acute (6) Hematuria: Code(s): R31.9 - Hematuria, unspecified Status: Acute (7) Clot retention of urine: Code(s): R33.8 - Other retention of urine Status: Acute DS: Summary Hospital Course Hospital Course: 78-year-old male with history of dementia, 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 Continuous bladder irrigation placed in the ER. Also noted opacity on CT scan abdomen pelvis right lower lobe 1.8 x 0.8 cm which could be nodules focal atelectasis or pneumonia. Patient started antibiotics. Admitted on 11/29/2023 # BPH with severely enlarged prostate, presented with hematuria and clot. -status post cystoscopy with Dr. Casiano on 11/30/2023 demonstrating highly trabeculated bladder with multiple cellules, areas of bleeding, clot evacuated, bladder fulgurated. -on 12/01 patient has dark red urine in the Booth bag again. Urology being notified currently. Not currently on CBI -continue [employer] finasteride and tamsulosin acute blood loss anemia. Hemoglobin continue to drop 7.5 from 13.6 on 11/24 Possible due to hematuria Continue to monitor Start Venofer IV 200 mg IV daily x5 pt is hemodynamically unstable since 11/30 1 PRBC ordered on hold f/u Hb q6h 12/03: Hemoglobin stable, no need transfusion, continue of iron supplements # community-acquired pneumonia -1.8 x 0.8 cm rule/atelectasis/pneumonia seen on right lower lobe on CT scan abdomen pelvis. Patient also complained of pleurisy and a dry cough prior to admission. Will treat as bacterial pneumonia. Five days of doxycycline and ceftriaxone started on 11/29/2023. -monitor for leukocytosis/sepsis/fever -will need follow-up CT to ensure resolution as this could be a nodule. -patient has temperature of 99.9?. He does have low blood pressure but this could be due to loss of blood. Check blood cultures December 01, no growth so far. changed to Augmentin doxycycline p.o. today on 12/02/2023. c/w the abx # dementia - reports patient has lost some weight because he has not eaten much. Pending barium swallow with [employer]. Dietitian consulted. Kathleen can order t.i.d. with meals. -at home in his normal environment the patient is not aggressive. He has had aggressive behavior here with delirium/sundowning and has required restraints. Continue good sleep-wake cycl
[2023-12-04] MEDS: OPTI-GEN TAB 1 TABLET PO (09:13)
[2023-12-04] MEDS: PANTOPRAZOLE 40 MG TABLET PO (09:13)
[2023-12-04] MEDS: CHOLECALCIFEROL 1,000 UNITS TABLET 1000 UNITS PO (09:13)
[2023-12-04] MEDS: DOXYCYCLINE HYCLATE 100 MG TABLET PO (09:13)
[2023-12-04] MEDS: FINASTERIDE 5 MG TABLET PO (09:13)
[2023-12-04] MEDS: IRON SUCROSE COMPLEX 100 MG/5 ML VIAL 200 MG IV PUSH (09:13)
[2023-12-04] MEDS: AMOXICILLIN/CLAVULANATE K 875-125 MG TAB 1 TABLET PO (09:13)
--- NOTE | 2023-12-04 09:33 | WPDUROPN2 ---
Progress Note: A&P Assessment and Plan (1) Hematuria: Code(s): R31.9 - Hematuria, unspecified Status: Acute Assessment and Plan: S/p cysto, clot evacuation, and fulguration on 11/30/23. Tolerated well CBI discontinued 12/01/23 and urine remains clear Monitor H&H closely. Noted to have decline in H&H, low remaining stable. Given urine remains clear, doubt source (2) Clot retention of urine: Code(s): R33.8 - Other retention of urine Status: Acute Assessment and Plan: S/p clot evacuation as above Has had ongoing urinary retention with 3 recently failed void trials. Plan to continue wright catheter on discharge and he has outpatient urodynamics scheduled in 2 weeks (3) Benign prostatic hyperplasia: Code(s): N40.0 - Benign prostatic hyperplasia without lower urinary tract symptoms Status: Acute Assessment and Plan: Noted to have markedy enlarged prostate on cystoscopy May consider PAE referral as an outpatient. Will await UDS as above Continue finasteride. Recently stopped tamsulosin due to concerns of cognitive dysfunction. Tamsulosin resumed during admission but again discontinued per family request Plan Okay for discharge from urologic standpoint. Continue with previously scheduled outpatient follow-up Subjective Subjective Date/Time Seen: 12/04/23 09:33 Interval history: Doing well today. Sitting up eating breakfast. Seems a bit more alert. present at bedside. Offers no concerns. Review of Systems Review of Systems: ROS unobtainable: Yes unobtainable due to mental status Exam Narrative: General: Awake, comfortable, no acute distress HEENT: Normocephalic, atraumatic, sclerae anicteric Respiratory: Normal respiratory effort, no accessory muscle use Abdomen: Nondistended, soft, nontender : Wright catheter draining clear yellow urine Skin: Normal coloration, warm and dry Neurologic: No focal neuro deficits noted Psychiatric: Appropriate mood and affect, judgment and insight poor Objective Data Vital Signs Vital Signs: Vital Signs - 24 hr 12/03/23 14:00 12/03/23 21:18 12/03/23 21:21 Temperature 98.3 F 99 F Pulse Rate 82 77 Respiratory Rate 15 16 Blood Pressure 111/59 L 126/73 Pulse Oximetry 98 99 98 Oxygen Delivery Room Air Fraction of Inspired Oxygen 12/03/23 20:00 12/04/23 06:00 Temperature 97.5 F L Pulse Rate 77 67 Respiratory Rate 16 20 Blood Pressure 125/67 Pulse Oximetry 98 99 Oxygen Delivery Room Air Fraction of Inspired Oxygen 21 Intake/Output Intake/Output: Intake & Output 12/01/23 12/02/23 12/03/23 12/04/23 23:59 23:59 23:59 23:59 Intake Total 910 1493 2355 928.3 Output Total 310 934 2260 3700 Balance 210 543 155 -2771.7 Meds/Results Medications: Active Medications Generic Name Dose Route Start Last Admin Trade Name Freq PRN Reason Stop Dose Admin Acetaminophen 650 mg 12/03/23 23:54 12/04/23 03:26 Acetaminophen Elixir 325 Mg/10.15 Ml Udc PO 650 mg Q4H PRN Administration Mild Pain (1-3) or Fever Doxycycline Hyclate 100 mg 11/30/23 09:00 12/04/23 09:13 Doxycycline Hyclate 100 Mg Tablet PO 12/04/23 21:01 100 mg Q12HR KAM Administration Finasteride 5 mg 11/30/23 09:00 12/04/23 09:13 Finasteride 5 Mg Tablet PO 5 mg DAILY KAM Administration Sodium Chloride 1,000 mls @ 100 mls/hr 12/02/23 16:20 12/04/23 03:25 Normal Saline Iv IV CONT 100 mls/hr .Q10H KAM Administration Iron Sucrose 200 mg 12/03/23 09:00 12/04/23 09:13 Iron Sucrose Complex 100 Mg/5 Ml Vial IV PUSH 12/07/23 09:01 200 mg DAILY KAM Administration Mirtazapine 15 mg 11/29/23 21:00 12/03/23 20:50 Mirtazapine 15 Mg Tablet PO 15 mg HS KAM Administration Multivitamins/Minerals 1 tablet 11/30/23 09:00 12/04/23 09:13 Opti-Gen Tab PO 1 tablet QAM KAM Administration Non-Formulary Medication 1 drop 11/29/23 16:00 12/03/23 18:07 Ket
== END 2023-12-04 15:59 | disposition home health service (06) | DRG 717 ==
LOC: ANHED 07:39 → ANH3MEDSUR 08:36
PROVIDERS: Physician Assistant; Urology; Admitting Provider General Practice; Emergency Provider Emergency Medicine; Visit Provider Hospitalist
PROC: 0TCB8ZZ Extirpation of Matter from Bladder, Via Natural or Artificial Opening Endoscopic (ICD-10-PCS; CPT 52001; principal; 2023-11-30 10:15)
DX: N40.1 Benign prostatic hyperplasia with lower urinary tract symptoms (principal); J18.9 Pneumonia, unspecified organism; N13.30 Unspecified hydronephrosis; N39.0 Urinary tract infection, site not specified; D62 Acute posthemorrhagic anemia; F05 Delirium due to known physiological condition; T83.021A Displacement of indwelling urethral catheter, initial encounter; N32.89 Other specified disorders of bladder; I10 Essential (primary) hypertension; E11.9 Type 2 diabetes mellitus without complications; E78.5 Hyperlipidemia, unspecified; K21.9 Gastro-esophageal reflux disease without esophagitis; R33.8 Other retention of urine; F03.90 Unspecified dementia, unspecified severity, without behavioral disturbance, psychotic disturbance, mood disturbance, and anxiety; Z87.891 Personal history of nicotine dependence; Z98.1 Arthrodesis status
CPT/HCPCS: 36415; 51700; 71045; 74176; 76775; 80048; 80053; 83735; 84145; 85014; 85018; 85025; 85027; 85055; 85610; 85730; 86850; 86900; 86901; 86923; 87040; 92611; 93005; 96365; 96376; 97161; 97165; 97530; 97535; 99283; 99285; A9270; G0378; J0690; J0696; J1756; J2704; J3010; J7030; J7050; J7120

== ENCOUNTER 2023-12-06 00:25 | Observation (INO) | payer MEDICARE, SELFPAY ==
[2023-12-06] VITALS (8 sets, daily range): BP systolic 92–141; BP diastolic 48–79; PULSE 74–88; RESP 16–18; TEMP 36.6–36.8; O2SAT 98–100; BMI 17.7
--- NOTE | ~2023-12-06 | CT_ITS ---
EXAMINATION: CT abdomen pelvis wo con DATE: 12/06/2023 02:23 INDICATION: Hematuria TECHNIQUE: Computed tomography (CT) of the abdomen and pelvis was performed without intravenous contr ast. Automated exposure control and iterative reconstruction technique were employed. The dose-length product was 283.02 mGy-cm. COMPARISON: None FINDINGS: Slight decrease in size of a previously 18 x 10 mm, currently 16 x 7 mm nodule at the posterolateral basilar right lower lobe with improvement in the prior surrounding groundglass opacity. Heart size is normal. Decreased attenuation the blood pool relative to myocardium consistent with anemia. No peric ardial effusion. Small sliding-type hiatal hernia. Liver, gallbladder, spleen, pancreas and bilateral adrenal glands are normal. Kidneys and ureters are normal with no urolithiasis, hydroureteronephrosi s or perinephric/ureteral stranding. Gas and a Booth catheter remain within the bladder. The previous ly seen surrounding hypoattenuation clot has resolved. Prominent prostatomegaly measuring 6.0 x 6.0 c m. Moderate amount of high attenuation stool scattered throughout the colon with increased density li ron related to a recent modified barium swallow study. No bowel obstruction. No free intraperitoneal gas or fluid. No pathologically enlarged abdominal or pelvic lymphadenopathy. Severe spondylosis at the lumbosacral junction. IMPRESSION: 1. Resolution of prior clot within the bladder. No acute intra-abdominal/pelvic process. 2. Persistent prominent prostatomegaly. 3. Slight decrease in size of a now 16 x 7 mm right lower lobe nodule with improvement in the strandi ng groundglass opacity which favors an infectious/inflammatory etiology. Would still recommend a 3 mo nth follow-up noncontrast chest CT. Reviewed, dictated and finalized at location A. IMPRESSION: 1. Resolution of prior clot within the bladder. No acute intra-abdominal/pelvic process. 2. Persistent prominent prostatomegaly. 3. Slight decrease in size of a now 16 x 7 mm right lower lobe nodule with impr ovement in the stranding groundglass opacity which favors an infectious/inflamm atory etiology. Would still recommend a 3 month follow-up noncontrast chest CT.
[2023-12-06 01:11] LABS: Basophils Percent Auto 0.4 % (0.2-1.2); Eosinophils Absolute Auto 0.2 K/mm3 (0-0.3); Hematocrit 23.7 % (42.0-52.0); Hemoglobin 7.8 g/dL (14.0-18.0); Immature Granulocyte Absolute 0.02 K/mm3 (0.00-0.031); Immature Granulocyte Percent A 0.4 % (0-0.5); Immature Platelet Fraction Pct 4.6 % (0.9-11.2); Lymphocytes Absolute Auto 1.66 K/mm3 (0.9-3.2); Lymphocytes Percent Auto 30.1 % (18.3-44.2); Mean Corpuscular HGB Conc 32.9 g/dl (32-36); Mean Corpuscular Hemoglobin 30.6 pg (26-34); Mean Corpuscular Volume 92.9 fl (80-100); Mean Platelet Volume 11.1 fl (7.4-10.4); Monocytes Absolute Auto 0.4 K/mm3 (0.1-0.6); Monocytes Percent Auto 7.1 % (2.6-8.5); Neutrophils Absolute Auto 3.2 K/mm3 (1.3-6.7); Platelet Count Result 114 k/mm3 (150-375); Red Blood Count 2.55 M/mm3 (4.6-6.20); Red Cell Distribution Width 12.3 % (11.5-14.5); White Blood Count 5.5 K/mm3 (4.5-10.0)
[2023-12-06 01:18] LABS: Alanine Aminotransferase 16 U/L (6-50); Albumin Level 3.1 g/dL (3.5-5.1); Alkaline Phosphatase 80 U/L (38-126); Anion Gap 4 mmol/L (4-12); Aspartate Amino Transferase 28 U/L (17-59); Bilirubin,Total 0.3 mg/dL (0.2-1.3); Blood Urea Nitrogen 14 mg/dL (9-20); Calcium 8.9 mg/dL (8.4-10.2); Carbon Dioxide 30 mmol/L (22-30); Chloride 107 mmol/L (98-107); Estimated CRCL calculation 64 ml/min; Estimated Glomerular Filt Rate > 60; Glucose 110 mg/dL (65-110); Potassium 3.2 mmol/L (3.4-5.0); Sodium 141 mmol/L (137-145)
[2023-12-06 01:19] LABS: Appearance Urine Clear (Clear); Color Urine Straw (Yellow); INR 1.1; Prothrombin Time 14.2 Seconds (11.1-14.7); Specific Grav Ur 1.005 (1.001-1.035)
[2023-12-06 01:20] LABS: Partial Thromboplastin Time 28.1 Seconds (22.3-36.8); Protein Urine 1+ mg/dL (Negative)
[2023-12-06 01:21] LABS: Glucose Urine UA Negative (Negative); Ketones Urine Negative (Negative)
[2023-12-06 01:22] LABS: Bilirubin Urine Negative (Negative); Blood Urine 3+ (Negative); Leukocyte Esterase Ur 1+ LEU/UL (Negative); Nitrate Urine Negative (Negative); Urobilinogen Urine 0.2 mg/dL (<2.0)
[2023-12-06 01:23] LABS: Add Urine Microscopic? YES
[2023-12-06 01:37] LABS: RBC Urine 51-100 /hpf (0-2)
[2023-12-06 01:38] LABS: Hyaline Casts Urine 0-2 /lpf; Mucus Urine Present /lpf
[2023-12-06 01:51] LABS: Anisocytosis 1+; Hypochromasia 1+; Microcytosis 2+ (NORMAL); Platelet Estimate Decreased (Adequate)
[2023-12-06 01:52] LABS: Ovalocytes 1+; Schistocytes None Seen
--- NOTE | 2023-12-06 02:10 | PC.NURSE ---
CBI stopped at this time per EDP Dr. Yost request.
--- NOTE | 2023-12-06 04:33 | ED.GENADULT ---
HPI - General Adult General Chief complaint: Urogenital-Male Stated complaint: blood in wright catheter Time Seen by Provider: 12/06/23 00:43 History of Present Illness HPI narrative: Patient is a 78-year-old gentleman who presents emergency department with chief complaint hematuria. Patient recently had multiple urological procedures due to hematuria and urinary retention the patient was discharged home with a catheter in place in tonight the family noticed there was a large clot in the bag and the patient was having bright red hematuria. The patient currently has no complaints Related Data Home Medications Medication Instructions Recorded Confirmed cholecalciferol (vitamin D3) 100 1,000 unit PO DAILY 10/02/23 11/29/23 mcg (4,000 unit) capsule omeprazole 20 mg tablet,delayed 20 mg PO DAILY 10/02/23 11/29/23 release tamsulosin 0.4 mg capsule (Flomax) 0.4 mg PO DAILY 10/02/23 11/29/23 vitamins A,C,F-xwfi-tcclty 2,148 1 tablet PO DAILY 10/02/23 11/29/23 mcg-113 mg-45 mg-17.4 mg tablet (PreserVision AREDS) acetaminophen 650 mg 650 mg PO Q4H PRN Pain (Scale 11/29/23 11/29/23 tablet,extended release Score 1-3) finasteride 5 mg tablet 5 mg PO DAILY 11/29/23 11/29/23 ketotifen fumarate 0.025 % (0.035 1 drp EACH EYE Q12H 11/29/23 11/29/23 %) eye drops mirtazapine 15 mg tablet 15 mg PO DAILY 11/29/23 11/29/23 Allergies Allergy/AdvReac Type Severity Reaction Status Date / Time cyclobenzaprine Allergy Anaphylaxis Verified 12/06/23 00:33 [From Flexeril] hydrocodone [From Vicodin] Allergy Unresponsiv Verified 12/06/23 00:33 e tramadol Allergy Anaphylaxis Verified 12/06/23 00:33 vancomycin Allergy Hallucinati Verified 12/06/23 00:33 ng Review of Systems Review of Systems: A 10 system review of systems was completed on the patient and is negative except for what is stated in the HPI. Nursing and ancillary documentation was reviewed. COUNTS INCLUDE 234 BEDS AT THE [facility] Past Medical History Medical History 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 Benign prostatic hyperplasia Diet-controlled diabetes mellitus A1c was 5.7% in September 2023. Hyperlipidemia Hypertension Kidney stones Surgical History Surgical History History of lumbar fusion Family History Family History Father Alzheimers disease Mother Diabetes mellitus Hypertension Heart problem Spinocerebellar ataxia Sibling Hypertension Social History Social History Social History: Surrogate medical decision maker: Na Leach, spouse. Code status: Full code. Smoking status: Former smoker Tobacco type: pipe Alcohol intake: never Substance use: never Substance use type: does not use Do You Feel Safe in your Home?: Yes Lack of Transportation: No Lack of Food: Never True Current Housing: I Have Housing Concerned About Future Housing: No Difficulty Paying Gas/Electric Bills: No Difficulty Paying for Meds: No Currently Unemployed: No Education: Trade/Vocational Certificate Difficulty w/ Childcare or Family Care: No Spiritual care concerns: No Exam Narrative: GENERAL: Well-appearing, well-nourished, and in no acute distress. HEAD: Normocephalic, atraumatic. EYES: PERRLA and EOMI. ENT: Nares clear, no rhinorrhea or epistaxis. Mucous membranes moist. NECK: Supple. CHEST: Clear to auscultation. No respiratory distress. HEART: Regular rate and rhythm. No murmur heard. Normal peripheral pulses. ABDOMEN: Soft, nontender, nondistended, normal active bowel sounds. : Wright catheter in place there is a large clot in the bag of the Wright but there is draining red urine EXTREMITIES: Normal range of motion. No edema. SKIN: Warm, dry,
--- NOTE | 2023-12-06 06:58 | ADMGEN ---
This patient, Humberto Leach, was admitted to [facility] Surg Room 329-01. Patient/family oriented to hospital policies and general routines including ID bracelet, bed and alarms, visiting hours, pain management, procedures, bathroom and other care routines, personal items, smoking policy, room service/diet, and visiting hours. Information on how to activate the Rapid Response Team has been discussed. Patient/Family are encouraged to report perceived risks to care and to ask questions if they do not understand what they are told or what they should do.
--- NOTE | 2023-12-06 07:46 | PM.IMHP ---
H&P: HPI History of Present Illness Date/Time: 12/06/23 07:46 Chief Complaint: Bloody urine Narrative: 78 years old man with history of BPH, GERD, dementia, present ED with chief complaint of bloody urine. Patient was recently admitted to the hospital because of hematuria, urinary retention, acute blood loss anemia, pneumonia, and pension underwent cystoscope, bladder fulguration and patient was discharged on December 03 with folic catheter. Yesterday night, patient noticed a large clot in the back, and bright red hematuria, therefore patient came back for further evaluation treatment. Patient denies abdomen pain, nausea vomiting diarrhea lightheadedness, chest pain. Upon arrival in the ED, blood pressure stable, pulse ox 99 on room air, lab showed anemia, hemoglobin 7.8, above the level on discharge, potassium 3.2, urinalysis showed straw-colored urine, urine clear, hematuria and 6-[address] scan report no nephrolithiasis, obstruction of uropathy or hydronephrosis. 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 Benign prostatic hyperplasia Diet-controlled diabetes mellitus A1c was 5.7% in September 2023. Hyperlipidemia Hypertension Kidney stones Surgical History Surgical History History of lumbar fusion Family History Family History Father Alzheimers disease Mother Diabetes mellitus Hypertension Heart problem Spinocerebellar ataxia Sibling Hypertension Social History Social History Social History: Surrogate medical decision maker: Na Leach, spouse. Code status: Full code. Smoking status: Former smoker Tobacco type: pipe Alcohol intake: never Substance use: never Substance use type: does not use Do You Feel Safe in your Home?: Yes Lack of Transportation: No Lack of Food: Never True Current Housing: I Have Housing Concerned About Future Housing: No Difficulty Paying Gas/Electric Bills: No Difficulty Paying for Meds: No Currently Unemployed: No Education: Trade/Vocational Certificate Difficulty w/ Childcare or Family Care: No Spiritual care concerns: No Meds Home Medications and Allergies Home Medications Medication Instructions Recorded Confirmed Type cholecalciferol (vitamin D3) 100 1,000 unit PO DAILY 10/02/23 12/06/23 History mcg (4,000 unit) capsule omeprazole 20 mg tablet,delayed 20 mg PO DAILY 10/02/23 12/06/23 History release vitamins A,C,Q-dkrc-pywytm 2,148 1 tablet PO DAILY 10/02/23 12/06/23 History mcg-113 mg-45 mg-17.4 mg tablet (PreserVision AREDS) acetaminophen 650 mg 650 mg PO Q4H PRN Pain (Scale 11/29/23 12/06/23 History tablet,extended release Score 1-3) finasteride 5 mg tablet 5 mg PO DAILY 11/29/23 12/06/23 History ketotifen fumarate 0.025 % (0.035 1 drp EACH EYE Q12H 11/29/23 12/06/23 History %) eye drops mirtazapine 15 mg tablet 15 mg PO HS 11/29/23 12/06/23 History amoxicillin 875 mg-potassium 1 tablet PO Q12H #8 tabs 12/04/23 12/06/23 Rx clavulanate 125 mg tablet ferrous sulfate 325 mg (65 mg 325 mg PO BID #60 tabs 12/04/23 12/06/23 Rx iron) tablet Allergies Allergy/AdvReac Type Severity Reaction Status Date / Time cyclobenzaprine Allergy Anaphylaxis Verified 12/06/23 00:33 [From Flexeril] hydrocodone [From Vicodin] Allergy Unresponsiv Verified 12/06/23 00:33 e tramadol Allergy Anaphylaxis Verified 12/06/23 00:33 vancomycin Allergy Hallucinati Verified 12/06/23 00:33 ng Vital Signs Vital Signs -
[2023-12-06 09:03] LABS: Hematocrit 23.8 % (42.0-52.0)
--- NOTE | 2023-12-06 09:19 | PM.IMPN ---
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 Ceftriaxone 2 g IV once, waiting urine culture Consult urologist, follow recommendation GERD Continue omeprazole 20 mg daily p.o. Chronic blood-loss anemia Hemoglobin above the level on recent discharge day Continue furosemide 325 mg b.i.d. p.o. Follow-up CBC Essential hypertension Start amlodipine 5 mg daily Subjective Date/time seen: 12/06/23 09:19 Objective Data Vital Signs Vital Signs: Vital Signs - 24 hr 12/06/23 00:27 12/06/23 01:03 12/06/23 06:16 Temperature 98.1 F Pulse Rate 80 74 77 Respiratory Rate 16 17 16 Blood Pressure 114/79 133/77 129/78 Pulse Oximetry 99 100 100 Oxygen Delivery Room Air 12/06/23 06:47 Temperature 97.8 F Pulse Rate 83 Respiratory Rate 18 Blood Pressure 141/66 H Pulse Oximetry 99 Oxygen Delivery Meds/Results Medications: Active Medications Generic Name Dose Route Start Last Admin Trade Name Freq PRN Reason Stop Dose Admin Acetaminophen 650 mg 12/06/23 05:00 Acetaminophen 325 Mg Tablet PO Q4H PRN Mild Pain (1-3) or Fever Amlodipine Besylate 5 mg 12/06/23 09:00 Amlodipine Besylate 5 Mg Tablet PO QAM [facility] Ferrous Sulfate 325 mg 12/06/23 08:30 Ferrous Sulfate [address] PO BIDWM KAM Finasteride 5 mg 12/06/23 09:00 Finasteride 5 Mg Tablet PO DAILY [facility] Mirtazapine 15 mg 12/06/23 21:00 Mirtazapine 15 Mg Tablet PO HS [facility] Miscellaneous Information 0 each 12/06/23 00:01 Ketotifen = Non Formulary XX 01/05/24 00:00 CLARIFY [facility] Multivitamins/Minerals 1 tablet 12/06/23 09:00 Opti-Gen Tab PO 01/05/24 08:59 DAILY [facility] Non-Formulary Medication 1 drop 12/06/23 08:15 Ketotifen Fumarate EACH EYE 01/05/24 08:14 Q12H [facility] Ondansetron HCl 4 mg 12/06/23 05:00 Ondansetron Inj 4 Mg/2 Ml Vial IV PUSH Q4H PRN Nausea Pantoprazole Sodium 40 mg 12/06/23 09:00 Pantoprazole 40 Mg Tablet PO 01/05/24 08:59 DAILY [facility] Vitamin D 1,000 units 12/06/23 09:00 Cholecalciferol 1,000 Units Tablet PO DAILY [facility] Labs Labs: Laboratory Results - last 24 hr 12/06/23 12/06/23 01:01 08:56 WBC 5.5 RBC 2.55 L Hgb 7.8 L 8.0 L Hct 23.7 L 23.8 L MCV 92.9 MCH 30.6 MCHC 32.9 RDW 12.3 Plt Count 114 L MPV 11.1 H Immature Gran % (Auto) 0.4 Neut % (Auto) 58.0 Lymph % (Auto) 30.1 [place] % (Auto) 7.1 Eos % (Auto) 4.0 Baso % (Auto) 0.4 Lymph # (Auto) 1.66 [place] # (Auto) 0.4 Eos # (Auto) 0.2 Baso # (Auto) 0.0 Abs Immat Gran (auto) 0.02 Absolute Neuts (auto) 3.2 Absolute Nucleated RBC 0.000 Nucleated RBC % 0.0 Platelet Estimate Decreased % Immature Plt Fraction 4.6 Hypochromasia 1+ Anisocytosis 1+ Microcytosis 2+ Ovalocytes 1+ Schistocytes None seen PT 14.2 INR 1.1 APTT 28.1 Sodium 141 Potassium 3.2 L Chloride 107 Carbon Dioxide 30 Anion Gap 4 BUN 14 Creatinine 0.60 L Estim Creat Clear Calc 64 Est
[2023-12-06] MEDS: FINASTERIDE 5 MG TABLET PO (09:31)
[2023-12-06] MEDS: FERROUS SULFATE 325 MG TABLET DR PO ×2 (09:31→17:15)
[2023-12-06] MEDS: cefTRIAXone 2 GM/NS 100 ML 2 GM/100 ML BAG IVPB (09:31)
[2023-12-06] MEDS: PANTOPRAZOLE 40 MG TABLET PO (09:31)
[2023-12-06] MEDS: OPTI-GEN TAB 1 TABLET PO (09:31)
[2023-12-06] MEDS: CHOLECALCIFEROL 1,000 UNITS TABLET 1000 UNITS PO (13:00)
[2023-12-06] MEDS: POTASSIUM CHLORIDE 20 MEQ PACKET (FOR LIQUID) 40 MEQ PO (13:00)
[2023-12-06 16:04] LABS: Hematocrit 24.7 % (42.0-52.0); Hemoglobin 8.2 g/dL (14.0-18.0)
--- NOTE | 2023-12-06 17:01 | WPDURCON ---
Assessment and Plan Assessment and plan (1) Benign prostatic hyperplasia: Code(s): N40.0 - Benign prostatic hyperplasia without lower urinary tract symptoms Status: Acute (2) Gross hematuria: Code(s): R31.0 - Gross hematuria Status: Acute Plan Hematuria has resolved after gentle CBI. Urine now clear yellow. Will cap 3rd port. H/H stable and Cr is normal. He is currently scheduled for urodynamics in 2 wks and possible consideration for PAE. No additional recommendations at this time. Urology Consult Note HPI Date Seen: 12/06/23 Requesting Physician: Kay Whipple DO Primary Care Provider: UNKNOWN,DOCTOR Consult Narrative Reason for consult: gross hematuria Narrative: Humberto Leach is a 78 year old male recently admitted for gross hematuria. He underwent a clot evacuation with Dr. Purvis last week. AT the time of surgery, he was noted to have a very large prostate. He is currently being set up for urodynamics and possible consultation for prostate arterial embolization. He was weaned off of CBI and discharged yesterday. He passed a few long, stringy clots last night then had some recurrent hematuria. He was therefore brought to ER for evaluation. Hemoglobin is stable and CT showed no recurrent clot in the bladder. The urine has cleared on gentle CBI and is now yellow off of CBI. Hemoglobin this AM has improved to 8.2. Patient is having issues with generalized weakness. 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 Benign prostatic hyperplasia Diet-controlled diabetes mellitus A1c was 5.7% in September 2023. Hyperlipidemia Hypertension Kidney stones Surgical History Surgical History History of lumbar fusion Family History Family History Father Alzheimers disease Mother Diabetes mellitus Hypertension Heart problem Spinocerebellar ataxia Sibling Hypertension Social History Social History Social History: Surrogate medical decision maker: Na Leach, spouse. Code status: Full code. Smoking status: Former smoker Tobacco type: pipe Alcohol intake: never Substance use: never Substance use type: does not use Do You Feel Safe in your Home?: Yes Lack of Transportation: No Lack of Food: Never True Current Housing: I Have Housing Concerned About Future Housing: No Difficulty Paying Gas/Electric Bills: No Difficulty Paying for Meds: No Currently Unemployed: No Education: Trade/Vocational Certificate Difficulty w/ Childcare or Family Care: No Spiritual care concerns: No Meds Home Medications and Allergies Home Medications Medication Instructions Recorded Confirmed Type cholecalciferol (vitamin D3) 100 1,000 unit PO DAILY 10/02/23 12/06/23 History mcg (4,000 unit) capsule omeprazole 20 mg tablet,delayed 20 mg PO DAILY 10/02/23 12/06/23 History release vitamins A,C,A-ewlx-ichezc 2,148 1 tablet PO DAILY 10/02/23 12/06/23 History mcg-113 mg-45 mg-17.4 mg tablet (PreserVision AREDS) acetaminophen 650 mg 650 mg PO Q4H PRN Pain (Scale 11/29/23 12/06/23 History tablet,extended release Score 1-3) finasteride 5 mg tablet 5 mg PO DAILY 11/29/23 12/06/23 History ketotifen fumarate 0.025 % (0.035 1 drp EACH EYE Q12H 11/29/23 12/06/23 History %) eye drops mirtazapine 15 mg tablet 15 mg PO HS 11/29/23 12/06/23 History amoxicillin 875 mg-potassium 1 tablet PO Q12H #8 tabs 12/04/23 12/06/23 Rx clavulanate 125 mg tablet ferrous sulfate 325 mg (65 mg 325 mg PO BID #60 tabs 12/04/23 12/06/23 Rx iron) tablet Allergies Al
[2023-12-06] MEDS: MIRTAZAPINE 15 MG TABLET PO (20:09)
[2023-12-06 21:02] LABS: Hematocrit 23.5 % (42.0-52.0); Hemoglobin 7.8 g/dL (14.0-18.0)
[2023-12-07 01:04] LABS: Hematocrit 24.3 % (42.0-52.0); Hemoglobin 7.6 g/dL (14.0-18.0)
[2023-12-07 05:48] VITALS: BP 103/58; PULSE 85; RESP 16; TEMP 37; O2SAT 99
[2023-12-07] MEDS: LORazepam INJ (*CRX) 2 MG/ML VIAL 0.5 MG IV PUSH (08:35)
--- NOTE | 2023-12-07 12:50 | WPDUROPN2 ---
Progress Note: A&P Assessment and Plan (1) Benign prostatic hyperplasia: Code(s): N40.0 - Benign prostatic hyperplasia without lower urinary tract symptoms Status: Acute (2) Gross hematuria: Code(s): R31.0 - Gross hematuria Status: Acute Plan Hematuria improved with CBI and now off. H/H stable and Cr is normal. Urine culture negative. He is currently scheduled for urodynamics in 2 wks and possible consideration for PAE. Subjective Subjective Date/Time Seen: 12/07/23 12:50 Interval history: Humberto is asleep today and not able to provide any history. His is present at the bedside. Review of Systems Review of Systems: ROS unobtainable: Yes unobtainable due to mental status Exam Narrative: General: asleep, comfortable, no acute distress HEENT: Normocephalic, atraumatic, sclerae anicteric Respiratory: Normal respiratory effort, no accessory muscle use Abdomen: Nondistended, soft, nontender : wright catheter draining clear light reddish/pink urine Skin: Normal coloration, warm and dry Neurologic: No focal neuro deficits noted Psychiatric: Appropriate mood and affect, judgment and insight poor Objective Data Vital Signs Vital Signs: Vital Signs - 24 hr 12/06/23 14:00 12/06/23 20:00 12/06/23 20:59 Temperature 98.3 F 98.1 F Pulse Rate 79 88 Respiratory Rate 16 16 Blood Pressure 118/68 92/48 L Pulse Oximetry 99 99 Oxygen Delivery Room Air 12/06/23 23:40 12/07/23 05:48 Temperature 98.6 F Pulse Rate 85 Respiratory Rate 16 Blood Pressure 100/50 L 103/58 L Pulse Oximetry 99 Oxygen Delivery Intake/Output Intake/Output: Intake & Output 12/04/23 12/05/23 12/06/23 12/07/23 23:59 23:59 23:59 23:59 Intake Total 458 480 Output Total 0931 715 Balance -976 -974 Meds/Results Medications: Active Medications Generic Name Dose Route Start Last Admin Trade Name Freq PRN Reason Stop Dose Admin Acetaminophen 650 mg 12/06/23 05:00 Acetaminophen 325 Mg Tablet PO Q4H PRN Mild Pain (1-3) or Fever Amlodipine Besylate 5 mg 12/06/23 09:00 06/24/24 08:35 Amlodipine Besylate 5 Mg Tablet PO Not Given QAM [facility] Ferrous Sulfate 325 mg 12/06/23 08:30 12/06/23 17:15 Ferrous Sulfate [address] PO 325 mg BIDWM KAM Administration Finasteride 5 mg 12/06/23 09:00 12/06/23 09:31 Finasteride 5 Mg Tablet PO 5 mg DAILY KAM Administration Mirtazapine 15 mg 12/06/23 21:00 12/06/23 20:09 Mirtazapine 15 Mg Tablet PO 15 mg HS KAM Administration Miscellaneous Information 0 each 12/06/23 00:01 Ketotifen = Non Formulary XX 01/05/24 00:00 CLARIFY [facility] Multivitamins/Minerals 1 tablet 12/06/23 09:00 12/06/23 09:31 Opti-Gen Tab PO 01/05/24 08:59 1 tablet DAILY KAM Administration Non-Formulary Medication 1 drop 12/06/23 08:15 Ketotifen Fumarate EACH EYE 01/05/24 08:14 Q12H [facility] Ondansetron HCl 4 mg 12/06/23 05:00 Ondansetron Inj 4 Mg/2 Ml Vial IV PUSH Q4H PRN Nausea Pantoprazole Sodium 40 mg 12/06/23 09:00 12/06/23 09:31 Pantoprazole 40 Mg Tablet PO 01/05/24 08:59 40 mg DAILY KAM Administration Vitamin D 1,000 units 12/06/23 09:00 12/06/23 13:00 Cholecalciferol 1,000 Units Tablet PO 1,000 units DAILY KAM Administration Radiology Results: ITS Impressions Abdomen/Pelvis CT 12/06/23 09:41 IMPRESSION: 1. Resolution of prior clot within the bladder. No acute intra-abdominal/pelvic process. 2. Persistent prominent prostatomegaly. 3. Slight decrease in size of a now 16 x 7 mm right lower lobe nodule with improvement in the stranding groundglass opacity which favors an infectious/inflammatory etiology. Would still recommend a 3 month follow-up noncontrast chest CT. Labs Labs: Laboratory Results - last 24 hr 12/06/23 12/06/23 12/07/23 15:57 20:44 00:54 Hgb 8.2 L 7.8 L 7.6 L Hct 24.7 L 23.5 L 24.3 L
[2023-12-07 12:59] VITALS: BMI 17.7
[2023-12-07 13:06] LABS: Hematocrit 23.3 % (42.0-52.0); Hemoglobin 7.7 g/dL (14.0-18.0); Mean Corpuscular Hemoglobin 30.9 pg (26-34); Mean Corpuscular Volume 93.6 fl (80-100); Mean Platelet Volume 10.2 fl (7.4-10.4); Platelet Count Result 121 k/mm3 (150-375); Red Blood Count 2.49 M/mm3 (4.6-6.20); Red Cell Distribution Width 12.5 % (11.5-14.5); White Blood Count 6.8 K/mm3 (4.5-10.0)
[2023-12-07 13:25] LABS: Anion Gap 5 mmol/L (4-12); Blood Urea Nitrogen 16 mg/dL (9-20); Calcium 8.9 mg/dL (8.4-10.2); Carbon Dioxide 28 mmol/L (22-30); Chloride 105 mmol/L (98-107); Estimated CRCL calculation 61 ml/min; Estimated Glomerular Filt Rate > 60; Glucose 136 mg/dL (65-110); Potassium 3.9 mmol/L (3.4-5.0); Sodium 138 mmol/L (137-145)
[2023-12-07 14:00] VITALS: BP 103/63; PULSE 85; RESP 16; TEMP 36.6; O2SAT 100
--- NOTE | 2023-12-07 14:55 | PC.NURSE ---
Patient was very agitated upon shift change, stating he did not want any nurses or staff in his room and he was going home . CLIENT DEVELOPMENT CONSULTANT responded to patient's bed alarm and found patient standing out of bed between the bedrails with at bedside. Patient is unable to walk and has poor balance, was not re-directable and was adamant on putting shoes on to leave. CLIENT DEVELOPMENT CONSULTANT called RN to assist with the patient. This RN entered patient's room and attempted to de-escalate the patients behavior, was able to get the patient sitting down on the bed but pt was still impulsive and demanding to put on socks and shoes. Patient was being very verbally aggressive toward his and staff, refused to lie back in the bed in order to set the bed alarm, and told RN to send the police after me and have them josé luis me down, as soon as I get to that door I'm leaving . Dr Perez notified of behavior, one time dose of 0.5mg IVP Ativan was ordered and administered.
--- NOTE | 2023-12-07 15:04 | PC.NURSE ---
This RN spent 25+ minutes in patient room with and son at bedside educating on patient safety regarding his dementia and inability to comprehend basic safety measures. originally wanted to take patient home today where she would be primary patient care manager but admittedly could not assist the patient up from a fall or re-direct him on her own. I advised the that safety was the biggest concern as he is unable to walk and would likely fall if he were to get up and ambulate, in which she was educated on the potential consequences of a fall. Patient's son was present for this conversation and stated that he nor their other son Carlos would be available to assist with the extent of care needed for the patient. RN suggested placement and informed patient's that care coordination would provide all resources available if she were to be agreeable, as patient is not oriented. After a very empathetic conversation, son and were agreeable to speaking with Care Coordination to find placement for the patient. was very emotional, biggest concern being financial trouble and patient becoming more agitated after finding out about a longer hospital stay. I advised family that staff is readily available to assist if that were to happen and re-assured that he would not be discharged until placement was secured and referrals could be sent as early as today. At this time, family was agreeable and verbalized understanding.
--- NOTE | 2023-12-07 15:51 | PM.IMPN ---
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 Ceftriaxone 2 g IV once, waiting urine culture: No bacteria grows from urine Hold antibiotics Consult urologist, follow recommendation GERD Continue omeprazole 20 mg daily p.o. Chronic blood-loss anemia Hemoglobin above the level on recent discharge day Continue furosemide 325 mg b.i.d. p.o. Follow-up CBC Essential hypertension Start amlodipine 5 mg daily Delirium Patient was agitated, patient has history of dementia Patient was agitated, is possible due to multiple comorbidities Patient has general weakness, unable to ambulate without assistance Consult PT OT medicare insurance specialist for assisting placement Subjective Date/time seen: 12/07/23 15:51 Interval history: I saw examined patient today, patient was agitated in the morning, patient was frustrated, but the patient denies abdomen pain, chest pain, shortness of breath. Patient was afebrile, blood pressure stable, patient still has bloody urine from Booth catheter. Hemoglobin stable Exam Narrative: GENERAL: Pleasant, in no acute distress. Well-nourished. - EYES: EOMI. Anicteric. - HENT: Moist mucous membranes. - LUNGS: Clear to auscultation bilaterally, no wheezing, rhonchi, or rales. - CARDIOVASCULAR: Regular rate and rhythm. No murmur. No JVD. - ABDOMEN: Soft, non-tender and non-distended. No palpable masses. Booth catheter in-situ, pink urine drained out - EXTREMITIES: No edema. Peripheral pulses 2+. Non-tender. - NEUROLOGIC: No focal neurological deficits. CN II-XII grossly intact. - PSYCHIATRIC: Awake, Alert and oriented x 3. Appropriate mood and affect. - SKIN: No rashes or lesions. Warm. - LYMPH: No cervical lymphadenopathy. Objective Data Vital Signs Vital Signs: Vital Signs - 24 hr 12/06/23 20:00 12/06/23 20:59 12/06/23 23:40 Temperature 98.1 F Pulse Rate 88 Respiratory Rate 16 Blood Pressure 92/48 L 100/50 L Pulse Oximetry 99 Oxygen Delivery Room Air 12/07/23 05:48 12/07/23 08:00 12/07/23 14:00 Temperature 98.6 F 97.8 F Pulse Rate 85 85 Respiratory Rate 16 16 Blood Pressure 103/58 L 103/63 Pulse Oximetry 99 100 Oxygen Delivery Room Air Intake/Output Intake/Output: Intake & Output 12/04/23 12/05/23 12/06/23 12/07/23 23:59 23:59 23:59 23:59 Intake Total 458 480 Output Total 1175 950 Balance -717 -658 Meds/Results Medications: Active Medications Generic Name Dose Route Start Last Admin Trade Name Freq PRN Reason Stop Dose Admin Acetaminophen 650 mg 12/06/23 05:00 Acetaminophen 325 Mg Tablet PO Q4H PRN Mild Pain (1-3) or Fever Amlodipine Besylate 5 mg 12/06/23 09:00 12/07/23 08:35 Amlodipine Besylate 5 Mg Tablet PO Not Given QAM [facility] Ferrous Sulfate 325 mg 12/06/23 08:30 12/06/23 17:15 Ferrous Sulfate [address] PO 325 mg BIDWM KAM Administration Finasteride 5 mg 12/06/23 09:00 12/06/23 09:31 Finasteride 5 Mg Tablet PO 5 mg DAILY KAM Administration Mirtazapine 15 mg
[2023-12-07 16:45] VITALS: BP 121/66; PULSE 85; O2SAT 100
[2023-12-07] MEDS: FERROUS SULFATE 325 MG TABLET DR PO (18:02)
[2023-12-07 19:21] VITALS: BP 97/49; PULSE 79; RESP 18; O2SAT 100
[2023-12-07 22:00] VITALS: BP 116/62; PULSE 75; RESP 20; TEMP 36.8; O2SAT 97
[2023-12-08 05:26] VITALS: BP 111/59; PULSE 79; RESP 18; TEMP 36.7; O2SAT 97
--- NOTE | 2023-12-08 05:51 | WPDUROPN2 ---
Progress Note: A&P Assessment and Plan (1) Benign prostatic hyperplasia: Code(s): N40.0 - Benign prostatic hyperplasia without lower urinary tract symptoms Status: Acute (2) Gross hematuria: Code(s): R31.0 - Gross hematuria Status: Acute Plan Minimal hematuria - catheter draining without clots Definitive intervention for his unusually large prostate (source of bleeding) will be prostate artery embolizaton (PAE). Looking into getting that procedure scheduled earlier. Subjective Subjective Date/Time Seen: 12/08/23 05:51 Interval history: Comfortable, catheter draining Review of Systems Review of Systems: All systems reviewed & are unremarkable except as noted in HPI and below Exam Const: General: no acute distress Resp: Effort & Inspection: normal respiratory effort GI: Inspection: non-distended GI Palp: No abdominal tenderness and No Guarding due to palpation present (GI) Auscultation: normal bowel sounds Urinary Catheter: Urinary Catheter: patent and draining and urine dark Objective Data Vital Signs Vital Signs: Vital Signs - 24 hr 12/07/23 08:00 12/07/23 14:00 12/07/23 16:45 Temperature 97.8 F Pulse Rate 85 85 Respiratory Rate 16 Blood Pressure 103/63 121/66 Pulse Oximetry 100 100 Oxygen Delivery Room Air 12/07/23 19:21 12/07/23 22:00 12/08/23 05:26 Temperature 98.3 F 98.1 F Pulse Rate 79 75 79 Respiratory Rate 18 20 18 Blood Pressure 97/49 L 116/62 111/59 L Pulse Oximetry 100 97 97 Oxygen Delivery Intake/Output Intake/Output: Intake & Output 12/05/23 12/06/23 12/07/23 12/08/23 23:59 23:59 23:59 23:59 Intake Total 458 480 240 Output Total 1175 1300 300 Balance -717 -820 -60 Meds/Results Medications: Active Medications Generic Name Dose Route Start Last Admin Trade Name Freq PRN Reason Stop Dose Admin Acetaminophen 650 mg 12/06/23 05:00 Acetaminophen 325 Mg Tablet PO Q4H PRN Mild Pain (1-3) or Fever Amlodipine Besylate 5 mg 12/06/23 09:00 12/07/23 08:35 Amlodipine Besylate 5 Mg Tablet PO Not Given QAM [facility] Ferrous Sulfate 325 mg 12/06/23 08:30 06/24/24 18:02 Ferrous Sulfate [address] PO 325 mg BIDWM [facility] Administration Finasteride 5 mg 12/06/23 09:00 12/07/23 16:43 Finasteride 5 Mg Tablet PO Not Given DAILY [facility] Mirtazapine 15 mg 12/06/23 21:00 12/06/23 20:09 Mirtazapine 15 Mg Tablet PO 15 mg HS KAM Administration Miscellaneous Information 0 each 12/06/23 00:01 Ketotifen = Non Formulary XX 01/05/24 00:00 CLARIFY [facility] Multivitamins/Minerals 1 tablet 12/06/23 09:00 12/07/23 16:43 Opti-Gen Tab PO 01/05/24 08:59 Not Given DAILY [facility] Non-Formulary Medication 1 drop 12/06/23 08:15 Ketotifen Fumarate EACH EYE 01/05/24 08:14 Q12H [facility] Ondansetron HCl 4 mg 12/06/23 05:00 Ondansetron Inj 4 Mg/2 Ml Vial IV PUSH Q4H PRN Nausea Pantoprazole Sodium 40 mg 12/06/23 09:00 12/07/23 16:43 Pantoprazole 40 Mg Tablet PO 01/05/24 08:59 Not Given DAILY [facility] Vitamin D 1,000 units 12/06/23 09:00 12/07/23 16:43 Cholecalciferol 1,000 Units Tablet PO Not Given DAILY [facility] Radiology Results: ITS Impressions Abdomen/Pelvis CT 12/06/23 09:41 IMPRESSION: 1. Resolution of prior clot within the bladder. No acute intra-abdominal/pelvic process. 2. Persistent prominent prostatomegaly. 3. Slight decrease in size of a now 16 x 7 mm right lower lobe nodule with improvement in the stranding groundglass opacity which favors an infectious/inflammatory etiology. Would still recommend a 3 month follow-up noncontrast chest CT. Labs Labs: Laboratory Results - last 24 hr 12/07/23 12:57 WBC 6.8 RBC 2.49 L Hgb 7.7 L Hct 23.3 L MCV 93.6 MCH 30.9 MCHC 33.0 RDW 12.5 Plt Count 121 L MPV 10.2 Sodium 138 Potassium 3.9 Chloride 105 Carbon Dioxide 28 Anion Gap 5 BUN 16 Creatinine 0.60
[2023-12-08] MEDS: PANTOPRAZOLE 40 MG TABLET PO (08:25)
[2023-12-08] MEDS: FERROUS SULFATE 325 MG TABLET DR PO (08:25)
[2023-12-08] MEDS: CHOLECALCIFEROL 1,000 UNITS TABLET 1000 UNITS PO (08:26)
[2023-12-08] MEDS: FINASTERIDE 5 MG TABLET PO (08:26)
[2023-12-08] MEDS: OPTI-GEN TAB 1 TABLET PO (08:26)
[2023-12-08] MEDS: amLODIPine BESYLATE 5 MG TABLET PO (08:26)
--- NOTE | 2023-12-08 10:49 | PM.IMPN ---
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 Ceftriaxone 2 g IV once, waiting urine culture: No bacteria grows from urine Hold antibiotics Consult urologist, plans prostate artery embolizaton GERD Continue omeprazole 20 mg daily p.o. Chronic blood-loss anemia Hemoglobin above the level on recent discharge day Continue furosemide 325 mg b.i.d. p.o. Follow-up CBC Essential hypertension Uncontrolled hypertension POA, possible because of pain and agitation Start amlodipine 5 mg daily Discontinue hypertension medication on discharge Delirium Patient was agitated POA, patient has history of dementia Patient was agitated, is possible due to multiple comorbidities Patient has general weakness, but weakness is improved Consult PT OT career technical education teacher for assisting placement Patient is mentally clear now Subjective Date/time seen: 12/08/23 10:49 Interval history: I saw examined patient today, patient feels better in the morning, he chest pain, shortness of breath. Patient was afebrile, blood pressure stable, patient still has dark urine from Booth catheter. Hemoglobin stable Exam Narrative: GENERAL: Pleasant, in no acute distress. Well-nourished. - EYES: EOMI. Anicteric. - HENT: Moist mucous membranes. - LUNGS: Clear to auscultation bilaterally, no wheezing, rhonchi, or rales. - CARDIOVASCULAR: Regular rate and rhythm. No murmur. No JVD. - ABDOMEN: Soft, non-tender and non-distended. No palpable masses. Booth catheter incentive, duct urine drained out - EXTREMITIES: No edema. Peripheral pulses 2+. Non-tender. - NEUROLOGIC: No focal neurological deficits. CN II-XII grossly intact. General weakness - PSYCHIATRIC: Awake, Alert and oriented x 3. Appropriate mood and affect. - SKIN: No rashes or lesions. Warm. - LYMPH: No cervical lymphadenopathy.. Objective Data Vital Signs Vital Signs: Vital Signs - 24 hr 12/07/23 14:00 12/07/23 16:45 12/07/23 19:21 Temperature 97.8 F Pulse Rate 85 85 79 Respiratory Rate 16 18 Blood Pressure 103/63 121/66 97/49 L Pulse Oximetry 100 100 100 12/07/23 22:00 12/08/23 05:26 Temperature 98.3 F 98.1 F Pulse Rate 75 79 Respiratory Rate 20 18 Blood Pressure 116/62 111/59 L Pulse Oximetry 97 97 Intake/Output Intake/Output: Intake & Output 12/05/23 12/06/23 12/07/23 12/08/23 23:59 23:59 23:59 23:59 Intake Total 458 480 480 Output Total 1175 1300 300 Balance -717 -820 180 Meds/Results Medications: Active Medications Generic Name Dose Route Start Last Admin Trade Name Freq PRN Reason Stop Dose Admin Acetaminophen 650 mg 12/06/23 05:00 Acetaminophen 325 Mg Tablet PO Q4H PRN Mild Pain (1-3) or Fever Ferrous Sulfate 325 mg 12/06/23 08:30 12/08/23 08:25 Ferrous Sulfate [address] PO 325 mg BIDWM KAM Administration Finasteride 5 mg 12/06/23 09:00 12/08/23 08:26 Finasteride 5 Mg Tablet PO 5 mg DAILY KAM Administration Mirtazapine 15 mg 12/06/23 21:00 12/07/23 21:00 Mirtazapine 15 Mg Tablet PO
--- NOTE | 2023-12-08 12:34 | PM.DS ---
DS: Admitting Diagnosis Discharge Date 12/07 Admitting Diagnosis (1) Benign prostatic hyperplasia: Code(s): N40.0 - Benign prostatic hyperplasia without lower urinary tract symptoms Status: Acute (2) Gross hematuria: Code(s): R31.0 - Gross hematuria Status: Acute DS: Discharge Diagnosis Discharge Diagnosis (1) Hematuria: Code(s): R31.9 - Hematuria, unspecified Status: Acute (2) Benign prostatic hyperplasia: Code(s): N40.0 - Benign prostatic hyperplasia without lower urinary tract symptoms Status: Acute (3) Clot retention of urine: Code(s): R33.8 - Other retention of urine Status: Acute (4) Acute on chronic blood loss anemia: Code(s): D62 - Acute posthemorrhagic anemia Status: Acute (5) 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 Patient was recently admitted to the hospital because of hematuria, urinary retention, acute blood loss anemia, pneumonia, and pension underwent cystoscope, bladder fulguration and patient was discharged on December 03 with folic catheter. Yesterday night, patient noticed a large clot in the back, and bright red hematuria, therefore patient came back for further evaluation treatment. Patient denies abdomen pain, nausea vomiting diarrhea lightheadedness, chest pain. Upon arrival in the ED, blood pressure stable, pulse ox 99 on room air, lab showed anemia, hemoglobin 7.8, above the level on discharge, potassium 3.2, urinalysis showed straw-colored urine, urine clear, hematuria and 6-[address] scan report no nephrolithiasis, obstruction of uropathy or hydronephrosis. ER physician consulted urologist, we admit patient for further evaluation and treatment The following med issues have been addressed during hospitalization Recurrent hematuria Patient history of BPH with severe large prostate, patient was found have bladder bleeding, underwent bladder fulguration recently Patient noticed painless hematuria yesterday Urinalysis shows straw-colored urine, clear urine, hematuria blood blood cell 5-10 Urine culture is pending Continue finasteride 5 mg daily p.o. Ceftriaxone 2 g IV once, waiting urine culture: No bacteria grows from urine Hold antibiotics Consult urologist, plans prostate artery embolizaton GERD Continue omeprazole 20 mg daily p.o. Chronic blood-loss anemia Hemoglobin above the level on recent discharge day Continue furosemide 325 mg b.i.d. p.o. Follow-up CBC Essential hypertension Uncontrolled hypertension POA, possible because of pain and agitation Start amlodipine 5 mg daily Discontinue hypertension medication on discharge Delirium Patient was agitated POA, patient has history of dementia Patient was agitated, is possible due to multiple comorbidities Patient has general weakness, but weakness is improved Consult PT OT health care marketing specialist for assisting placement Patient is mentally clear now Time Spent with Patient Time attestation: Total time spent providing and/or coordinating discharge services: Exam Narrative: GENERAL: Pleasant, in no acute distress. Well-nourished. - EYES: EOMI. Anicteric. - HENT: Moist mucous membranes. - LUNGS: Clear to auscultation bilaterally, no wheezing, rhonchi, or rales. - CARDIOVASCULAR: Regular rate and rhythm. No murmur. No JVD. - ABDOMEN: Soft, non-tender and non-distended. No palpable masses. Booth catheter incentive, duct urine drained out - EXTREMITIES: No edema. Peripheral pulses 2+. Non-tender. - NEUROLOGIC: No focal neurological deficits. CN II-XII grossly intact. General weakness - PSYCHIATRIC: Awake, Alert and oriented x 3. Appropriate mood and affect. - SKIN: No rashes or lesions. Warm. - LYMPH: No cervi
[2023-12-08 13:15] VITALS: BP 120/56; PULSE 80; RESP 18; TEMP 36.7; O2SAT 99
== END 2023-12-08 13:35 | disposition home health service (06) ==
LOC: ANHED 00:57 → ANH3MEDSUR 06:19
PROVIDERS: Admitting Provider Internal Medicine; Emergency Provider Emergency Medicine; Visit Provider Hospitalist
DX: R31.0 Gross hematuria (principal); R33.8 Other retention of urine; D50.0 Iron deficiency anemia secondary to blood loss (chronic); N40.0 Benign prostatic hyperplasia without lower urinary tract symptoms; I10 Essential (primary) hypertension; E78.5 Hyperlipidemia, unspecified; E11.9 Type 2 diabetes mellitus without complications; F03.90 Unspecified dementia, unspecified severity, without behavioral disturbance, psychotic disturbance, mood disturbance, and anxiety; K21.9 Gastro-esophageal reflux disease without esophagitis; Z98.1 Arthrodesis status; Z87.891 Personal history of nicotine dependence
CPT/HCPCS: 36415; 74176; 80048; 80053; 81001; 85014; 85018; 85025; 85027; 85055; 85610; 85730; 87086; 96365; 96375; 97166; 99285; A9270; G0378; J0696; J2060

== ENCOUNTER 2024-03-20 06:59 | Emergency (ER) | payer MEDICARE, SELFPAY ==
[2024-03-20 07:00] VITALS: BP 148/79; PULSE 69; RESP 18; TEMP 36.5; O2SAT 98
[2024-03-20 07:45] LABS: Bacteria Urine 4+ /hpf; Need Manual Microscopic Reviewed; RBC Urine >100 /hpf (0-2); Squamous Epithelial Cell Urine Occasional /hpf (Few); WBC Urine >100 /hpf (0-3)
[2024-03-20 07:47] LABS: Add Urine Microscopic? YES; Appearance Urine Turbid (Clear); Bilirubin Urine 1+ (Negative); Blood Urine 2+ (Negative); Color Urine Red (Yellow); Glucose Urine UA Negative (Negative); Ketones Urine Negative (Negative); Leukocyte Esterase Ur 3+ LEU/UL (Negative); Nitrate Urine Positive (Negative); Protein Urine 2+ mg/dL (Negative); Urobilinogen Urine 0.2 mg/dL (<2.0); pH Urine 5.5 (5.0-9.0)
--- NOTE | 2024-03-20 07:55 | ED.GENADULT ---
HPI - General Adult General Chief complaint: Urogenital-Male Stated complaint: hematuria, throbbing penis History of Present Illness HPI narrative: 78 year old male present to the emergency department for evaluation for hematuria that started this morning. Patient does have an indwelling Booth catheter. Patient was started on antibiotic last week for a urinary tract infection. Patient was started on Macrobid and completed this approximately 3 days ago. states that she did notice the hematuria this morning. Patient does have dementia and denies any complaints this time. Patient does have history of hematuria and has had follow-up with Urology previously. Related Data Home Medications Medication Instructions Recorded Confirmed cholecalciferol (vitamin D3) 100 1,000 unit PO DAILY 10/02/23 12/06/23 mcg (4,000 unit) capsule omeprazole 20 mg tablet,delayed 20 mg PO DAILY 10/02/23 12/06/23 release vitamins A,C,K-ukup-stfdif 2,148 1 tablet PO DAILY 10/02/23 12/06/23 mcg-113 mg-45 mg-17.4 mg tablet (PreserVision AREDS) acetaminophen 650 mg 650 mg PO Q4H PRN Pain (Scale 11/29/23 12/06/23 tablet,extended release Score 1-3) finasteride 5 mg tablet 5 mg PO DAILY 11/29/23 12/06/23 ketotifen fumarate 0.025 % (0.035 1 drp EACH EYE Q12H 11/29/23 12/06/23 %) eye drops mirtazapine 15 mg tablet 15 mg PO HS 11/29/23 12/06/23 Allergies Allergy/AdvReac Type Severity Reaction Status Date / Time cyclobenzaprine Allergy Anaphylaxis Verified 03/20/24 07:09 [From Flexeril] hydrocodone [From Vicodin] Allergy Unresponsiv Verified 03/20/24 07:09 e tramadol Allergy Anaphylaxis Verified 03/20/24 07:09 vancomycin Allergy Hallucinati Verified 03/20/24 07:09 ng Review of Systems Review of Systems: All systems reviewed & are unremarkable except as noted in HPI and below PMFSH Past Medical History Medical History 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 Benign prostatic hyperplasia Diet-controlled diabetes mellitus A1c was 5.7% in September 2023. Hyperlipidemia Hypertension Kidney stones Surgical History Surgical History History of lumbar fusion Family History Family History Father Alzheimers disease Mother Diabetes mellitus Hypertension Heart problem Spinocerebellar ataxia Sibling Hypertension Social History Social History Social History: Surrogate medical decision maker: Na Leach, spouse. Code status: Full code. Smoking status: Former smoker Tobacco type: pipe Alcohol intake: never Substance use: never Substance use type: does not use Do You Feel Safe in your Home?: Yes Lack of Transportation: No Lack of Food: Never True Current Housing: I Have Housing Concerned About Future Housing: No Difficulty Paying Gas/Electric Bills: No Difficulty Paying for Meds: No Currently Unemployed: No Education: Trade/Vocational Certificate Difficulty w/ Childcare or Family Care: No Spiritual care concerns: No Exam Narrative: APPEARANCE: Well appearing, no pain, no distress, well-nourished. HEAD: normocephalic, atraumatic. EYES: PERRLA/EOMI, conjunctivae clear. NOSE: Normal no drainage EARS:TMS clear with good light reflex. THROAT: Pharynx clear, no exudate. NECK: Supple. No adenopathy, no masses. RESPIRATORY: Airway patent, respirations nonlabored. Clear to auscultation bilaterally, no rales, rhonchi, wheezing. CARDIOVASCULAR: Regular rate and rhythm without murmurs rubs or gallops. ABDOMINAL: Soft, nontender, nondistended, normal bowel sounds MUSCULOSKELETAL: Moves all extremities. Strength/ROM intact, No edema, No calf tenderness. NEURO: Alert. Cranial nerves II through XII
--- NOTE | 2024-03-20 08:59 | PC.NURSE ---
pts states pt usually has an 18F Coude catheter but the home health nurse only had a 20F Coude. wright was replaced with an 18F coude.
== END 2024-03-20 09:50 | disposition home or self-care (01) ==
PROVIDERS: Emergency Provider Emergency Medicine
DX: N39.0 Urinary tract infection, site not specified (principal); R31.9 Hematuria, unspecified; I10 Essential (primary) hypertension; E78.5 Hyperlipidemia, unspecified; E11.9 Type 2 diabetes mellitus without complications; N40.0 Benign prostatic hyperplasia without lower urinary tract symptoms; Z98.1 Arthrodesis status; Z96.0 Presence of urogenital implants
CPT/HCPCS: 51702; 81001; 87086; 87181; 96374; 99284; J0696

== ENCOUNTER 2024-04-14 11:24 | Emergency (ER) | payer MEDICARE, SELFPAY ==
--- NOTE | ~2024-04-14 | US_ITS ---
EXAMINATION: US venous doppler LE RT DATE: 04/14/2024 13:47 INDICATION: Right lower limb swelling TECHNIQUE: Grayscale ultrasound images without and with compression and Doppler ultrasound images of the right lower extremity veins were obtained. COMPARISON: None. FINDINGS: Nonocclusive peripheral noncompressible deep venous thrombosis at the right right knee in the poplite al vein extending above the knee into the distal femoral vein. The visualized portions of right commo n femoral vein, profunda (deep) femoral vein, proximal to mid femoral vein, posterior tibial veins, peroneal veins, gastrocnemius vein and greater saphenous vein outflow are patent. IMPRESSION: 1. Nonocclusive deep venous thrombosis at the right popliteal vein extending into the distal right f emoral vein Reviewed, dictated and finalized at location A. IMPRESSION: 1. Nonocclusive deep venous thrombosis at the right popliteal vein extending i nto the distal right femoral vein
[2024-04-14 11:42] VITALS: BP 121/72; PULSE 67; RESP 16; TEMP 36.6; O2SAT 99
[2024-04-14 12:54] LABS: Basophils Percent Auto 0.7 % (0.2-1.2); Eosinophils Absolute Auto 0.1 K/mm3 (0-0.3); Eosinophils Percent Auto 1.9 % (0-4.4); Hematocrit 40.8 % (42.0-52.0); Hemoglobin 13.4 g/dL (14.0-18.0); Immature Granulocyte Absolute 0.01 K/mm3 (0.00-0.031); Immature Granulocyte Percent A 0.2 % (0-0.5); Immature Platelet Fraction Pct 2.3 % (0.9-11.2); Lymphocytes Absolute Auto 1.01 K/mm3 (0.9-3.2); Lymphocytes Percent Auto 17.6 % (18.3-44.2); Mean Corpuscular HGB Conc 32.8 g/dl (32-36); Mean Corpuscular Hemoglobin 29.8 pg (26-34); Mean Corpuscular Volume 90.7 fl (80-100); Mean Platelet Volume 9.7 fl (7.4-10.4); Monocytes Absolute Auto 0.4 K/mm3 (0.1-0.6); Monocytes Percent Auto 7.5 % (2.6-8.5); Neutrophils Absolute Auto 4.1 K/mm3 (1.3-6.7); Neutrophils Percent Auto 72.1 % (45.5-73.1); Platelet Count Result 142 k/mm3 (150-375); Red Cell Distribution Width 13.5 % (11.5-14.5); White Blood Count 5.7 K/mm3 (4.5-10.0)
[2024-04-14 12:59] LABS: Add Urine Microscopic? YES; Appearance Urine Cloudy (Clear); Bacteria Urine None Seen /hpf; Bilirubin Urine Negative (Negative); Blood Urine 3+ (Negative); Color Urine Yellow (Yellow); Glucose Urine UA Negative (Negative); Ketones Urine Negative (Negative); Leukocyte Esterase Ur 2+ LEU/UL (Negative); Nitrate Urine Negative (Negative); Protein Urine 1+ mg/dL (Negative); RBC Urine >100 /hpf (0-2); Specific Grav Ur 1.013 (1.001-1.035); Squamous Epithelial Cell Urine None Seen /hpf (Few)
[2024-04-14 13:07] LABS: Alanine Aminotransferase 11 U/L (6-50); Albumin Level 3.5 g/dL (3.5-5.1); Alkaline Phosphatase 74 U/L (38-126); Anion Gap 2 mmol/L (4-12); Aspartate Amino Transferase 21 U/L (17-59); Bilirubin,Total 0.5 mg/dL (0.2-1.3); Blood Urea Nitrogen 12 mg/dL (9-20); Calcium 9.3 mg/dL (8.4-10.2); Carbon Dioxide 34 mmol/L (22-30); Chloride 103 mmol/L (98-107); Estimated CRCL calculation 49 ml/min; Estimated Glomerular Filt Rate > 60; Glucose 114 mg/dL (65-110); Potassium 3.8 mmol/L (3.4-5.0); Sodium 139 mmol/L (137-145)
--- NOTE | 2024-04-14 13:08 | ED.GENADULT ---
HPI - General Adult General Chief complaint: Urogenital-Male Stated complaint: catheter problems Time Seen by Provider: 04/14/24 12:27 History of Present Illness HPI narrative: 78-year-old male presents to the emergency department for evaluation pain at the tip of his penis. Patient does have an indwelling Booth catheter and states that over the last month it has been hurting the tip of his penis. Patient did have a fall a few weeks ago and knows the patient did have swelling over his right leg. Patient denies any current pain of the leg. Related Data Home Medications Medication Instructions Recorded Confirmed omeprazole 20 mg tablet,delayed 20 mg PO DAILY 10/02/23 04/14/24 release vitamins A,C,W-ivqo-mpyngd 2,148 1 tablet PO DAILY 10/02/23 04/14/24 mcg-113 mg-45 mg-17.4 mg tablet (PreserVision AREDS) finasteride 5 mg tablet 5 mg PO DAILY 11/29/23 04/14/24 ketotifen fumarate 0.025 % (0.035 1 drp EACH EYE Q12H 11/29/23 04/14/24 %) eye drops cholecalciferol (vitamin D3) 25 25 mcg PO DAILY 04/14/24 04/14/24 mcg (1,000 unit) capsule (Vitamin D3) potassium chloride 20 mEq 20 meq PO DAILY 04/14/24 04/14/24 tablet,extended release Allergies Allergy/AdvReac Type Severity Reaction Status Date / Time cyclobenzaprine Allergy Anaphylaxis Verified 04/14/24 11:49 [From Flexeril] hydrocodone [From Vicodin] Allergy Unresponsiv Verified 04/14/24 11:49 e tramadol Allergy Anaphylaxis Verified 04/14/24 11:49 vancomycin Allergy Hallucinati Verified 04/14/24 11:49 ng Review of Systems Review of Systems: All systems reviewed & are unremarkable except as noted in HPI and below PMFSH Past Medical History Medical History 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 Benign prostatic hyperplasia Diet-controlled diabetes mellitus A1c was 5.7% in September 2023. Hyperlipidemia Hypertension Kidney stones Surgical History Surgical History History of lumbar fusion Family History Family History Father Alzheimers disease Mother Diabetes mellitus Hypertension Heart problem Spinocerebellar ataxia Sibling Hypertension Social History Social History Social History: Surrogate medical decision maker: Na Leach, spouse. Code status: Full code. Smoking status: Former smoker Tobacco type: pipe Alcohol intake: never Substance use: never Substance use type: does not use Do You Feel Safe in your Home?: Yes Lack of Transportation: No Lack of Food: Never True Current Housing: I Have Housing Concerned About Future Housing: No Difficulty Paying Gas/Electric Bills: No Difficulty Paying for Meds: No Currently Unemployed: No Education: Trade/Vocational Certificate Difficulty w/ Childcare or Family Care: No Spiritual care concerns: No Exam Narrative: APPEARANCE: Well appearing, no pain, no distress, well-nourished. HEAD: normocephalic, atraumatic. EYES: PERRLA/EOMI, conjunctivae clear. NOSE: Normal no drainage EARS:TMS clear with good light reflex. THROAT: Pharynx clear, no exudate. NECK: Supple. No adenopathy, no masses. RESPIRATORY: Airway patent, respirations nonlabored. Clear to auscultation bilaterally, no rales, rhonchi, wheezing. CARDIOVASCULAR: Regular rate and rhythm without murmurs rubs or gallops. ABDOMINAL: Soft, nontender, nondistended, normal bowel sounds MUSCULOSKELETAL: Moves all extremities. Right lower extremity edema. NEURO: Alert. Cranial nerves II through XII intact. Good gait. Good coordination SKIN: Warm, dry. Normal Color Course Vital Signs Vital signs: Vital Signs Temperature 97.9 F 04/14/24 11:42 Pulse Rate 67 04/14/24 11:42 Respiratory Rate 16 04/14/24 11:42 Blood Pressure 121/72 04/14/24 11:42 Pulse Oximetry 99 04/14/24 11:42 Oxygen Delivery Room Air 04/14/24 11:42 Temperature 97.9 F 04/14/24 11:42 Pulse Rate 66 04/14/24 14:22 Respiratory Rate 12 04/14/24 14:22 Blood Pressure 118/73 04/14/24 14:22 Pulse Oximetry 98 04/14/24 14:22 Oxygen Delivery Room Air 04/14/24 11:42 Medical Decision Making MDM Narrative Medical decision making narrative: 70-year-old male present to the emergency department for evaluation for multiple complaints including penis pain and leg swelling. Patient's Booth catheter was exchanged and patient's urine is concerning for UTI. Patient was started on antibiotics in the emergency department will be discharged home with antibiotics. Patient does have some swelling of the right lower extremity and ultrasound did show a DVT. Patient does have a recent history of hematuria requiring a blood transfusion and cauterization. Patient has no active bleeding today. I discussed the risks of bleeding from the bladder verses a saddle embolism and family was comfortable with the plan for proceeding with the Eliquis. I also discussed the case with Urology and they also were in agreement that the patient should be started on blood thinners and they will closely monitor the patient for any urinary bleeding. Differential Diagnosis Differential Diagnosis: DVT, cellulitis, UTI, hematuria, Booth catheter issue Vital Signs Vital Signs: Vital Signs Temperature 97.9 F 04/14/24 11:42 Pulse Rate 67 04/14/24 11:42 Respiratory Rate 16 04/14/24 11:42 Blood Pressure 121/72 04/14/24 11:42 Pulse Oximetry 99 04/14/24 11:42 Oxygen Delivery Room Air 04/14/24 11:42 Temperature 97.9 F 04/14/24 11:42 Pulse Rate 66 04/14/24 14:22 Respiratory Rate 12 04/14/24 14:22 Blood Pressure 118/73 04/14/24 14:22 Pulse Oximetry 98 04/14/24 14:22 Oxygen Delivery Room Air 04/14/24 11:42 Lab Data Lab results reviewed: Yes I reviewed the patient's lab results. 04/14/24 12:45 04/14/24 12:45 Labs: Lab Results 04/14/24 Range/Units 12:45 WBC 5.7 (4.5-10.0) K/mm3 RBC 4.50 L (4.6-6.20) M/mm3 Hgb 13.4 L D (14.0-18.0) g/dL Hct 40.8 L (42.0-52.0) % MCV 90.7 (80-100) fl MCH 29.8 (26-34) pg MCHC 32.8 (32-36) g/dl RDW 13.5 (11.5-14.5) % Plt Count 142 L (150-375) k/mm3 MPV 9.7 (7.4-10.4) fl Immature Gran % (Auto) 0.2 (0-0.5) % Neut % (Auto) 72.1 (45.5-73.1) % Lymph % (Auto) 17.6 L (18.3-44.2) % [place] % (Auto) 7.5 (2.6-8.5) % Eos % (Auto) 1.9 (0-4.4) % Baso % (Auto) 0.7 (0.2-1.2) % Lymph # (Auto) 1.01 (0.9-3.2) K/mm3 [place] # (Auto) 0.4 (0.1-0.6) K/mm3 Eos # (Auto) 0.1 (0-0.3) K/mm3 Baso # (Auto) 0.0 (0.0-0.1) K/mm3 Abs Immat Gran (auto) 0.01 (0.00-0.031) K/mm3 Absolute Neuts (auto) 4.1 (1.3-6.7) K/mm3 Absolute Nucleated RBC 0.000 (0.0-0.012) K/mm3 Nucleated RBC % 0.0 (0.0-0.2) % % Immature Plt Fraction 2.3 (0.9-11.2) % PT 15.1 H (11.1-14.7) Seconds INR 1.2 APTT 24.9 (22.3-36.8) Seconds Sodium 139 (137-145) mmol/L Potassium 3.8 (3.4-5.0) mmol/L Chloride 103 (98-107) mmol/L Carbon Dioxide 34 H (22-30) mmol/L Anion Gap 2 L (4-12) mmol/L BUN 12 (9-20) mg/dL Creatinine 0.70 (0.7-1.3) mg/dL Estim Creat Clear Calc 49 ml/min Estimated GFR > 60 (59 - ) Glucose 114 H (65-110) mg/dL Calcium 9.3 (8.4-10.2) mg/dL Total Bilirubin 0.5 (0.2-1.3) mg/dL AST 21 (17-59) U/L ALT 11 (6-50) U/L Alkaline Phosphatase 74 (38-126) U/L Total Protein 7.0 (6.3-8.2) g/dL Albumin 3.5 (3.5-5.1) g/dL Urine Color Yellow (Yellow) Urine Appearance Cloudy H (Clear) Urine pH 7.0 (5.0-9.0) Ur Specific [place] 1.013 (1.001-1.035) Urine Protein 1+ H (Negative) mg/dL Urine Glucose (UA) Negative (Negative) mg/dL Urine Ketones Negative (Negative) mg/dL Ur Blood (Man) 3+ H (Negative) Urine Nitrate Negative (Negative) Urine Bilirubin Negative (Negative) Urine Urobilinogen 1.0 (<2.0) mg/dL Add Ur Microanalysis Reviewed Leukocyte Esterase Rfl 2+ H (Negative) TANNER/UL Urine RBC >100 H (0-2) /hpf Urine WBC 11-20 H (0-3) /hpf Ur Squamous Epith Cells None seen (Few) /hpf Urine Bacteria None seen /hpf Urine Casts 11-20 Hyaline Casts Present (None) /lpf Imaging Data Radiologist's impression: Impressions Venous Doppler Study 04/14/24 13:58 IMPRESSION: 1. Nonocclusive deep venous thrombosis at the right popliteal vein extending into the distal right femoral vein Discharge Plan Discharge Clinical Impression: Acute UTI, DVT (deep venous thrombosis) Patient Disposition: Home, Self-Care Condition: Stable Instructions: Antibiotic Form, Booth Catheter Placement and Care (ED), Deep Vein Thrombosis (ED), Catheter-associated Urinary Tract Infection (ED) Additional Instructions: Antibiotic as directed until completed for the urinary tract infection. Booth catheter care as directed. Start taking the Eliquis as directed for the clot in the right leg. Have close follow-up with Urology. Urology is aware that you have been started on the blood thinner. If you have any worsening bleeding please have close follow-up with your physicians. Prescriptions: New cephalexin 500 mg capsule 500 mg PO Q8H 7 Days Qty: 21 0RF Eliquis DVT-PE Treat 30D Start 5 mg (74 tabs) tablets,dose pack See Rx Instructions .ROUTE .COMPLEX Qty: 74 0RF Rx Instructions: orally per package directions No Action omeprazole 20 mg Tablet,Delayed Release (Dr/Ec) 20 mg PO DAILY PreserVision AREDS 2,148 mcg-113 mg-45 mg-17.4mg Tablet 1 tablet PO DAILY ketotifen fumarate 0.025 % (0.035 %) Drops 1 drp EACH EYE Q12H finasteride 5 mg tablet 5 mg PO DAILY ferrous sulfate 325 mg (65 mg iron) tablet 325 mg PO BID Qty: 60 0RF cholecalciferol (vitamin D3) [Vitamin D3] 25 mcg (1,000 unit) Capsule 25 mcg PO DAILY potassium chloride 20 mEq tablet extended release 20 meq PO DAILY Follow-up/Referrals: UNKNOWN,DOCTOR [Primary Care Provider] -
[2024-04-14 13:09] LABS: Hyaline Casts Urine Present /lpf; INR 1.2; Need Manual Microscopic Reviewed; Prothrombin Time 15.1 Seconds (11.1-14.7)
[2024-04-14 13:10] LABS: Partial Thromboplastin Time 24.9 Seconds (22.3-36.8)
[2024-04-14 14:22] VITALS: BP 118/73; PULSE 66; RESP 12; O2SAT 98
== END 2024-04-14 16:22 | disposition home or self-care (01) ==
PROVIDERS: Emergency Provider Emergency Medicine
DX: N39.0 Urinary tract infection, site not specified (principal); I82.431 Acute embolism and thrombosis of right popliteal vein; I82.411 Acute embolism and thrombosis of right femoral vein; W19.XXXA Unspecified fall, initial encounter; N40.0 Benign prostatic hyperplasia without lower urinary tract symptoms; E11.9 Type 2 diabetes mellitus without complications; E78.5 Hyperlipidemia, unspecified; I10 Essential (primary) hypertension; Z87.891 Personal history of nicotine dependence
CPT/HCPCS: 36415; 51702; 80053; 81001; 85025; 85055; 85610; 85730; 87086; 93971; 96365; 99284; J0696

== ENCOUNTER 2024-04-21 23:26 | Emergency (ER) | payer MEDICARE, SELFPAY ==
--- NOTE | ~2024-04-21 | XR_ITS ---
Clinical Indication: Status post fall PA and lateral views of the chest: Comparison: 12/03/2023 Findings: The lungs are clear, without evidence of focal consolidation or pleural effusion. Possible COPD. Cardiomediastinal silhouette is within normal limits. Bones and soft tissues are unremarkable. Impression: No acute abnormality. Possible COPD. Reviewed, dictated and finalized at location . NCIAL SECRETARY Impression: No acute abnormality. Possible COPD.
--- NOTE | ~2024-04-21 | XR_ITS ---
AP view of the pelvis and AP and lateral views of the [ ] hip Clinical history: Pain Findings: No acute fracture or dislocation is seen. Osseous alignment is anatomic. Bilateral hip and SI joint spaces are preserved. Soft tissues are unremarkable. Impression: No significant abnormality is seen. Reviewed, dictated and finalized at [facility]. [employer] M[employer] WORKER Impression: No significant abnormality is seen.
--- NOTE | ~2024-04-21 | CT_ITS ---
CT head without contrast Indication: Status post fall Technique: Serial scans were obtained through the brain without the administration of contrast. Dose reduction technique was used on this scan by utilizing automated exposure control and iterative recon struction technique. The dose-length product (DLP) was 681.00 mGy-cm. Findings: There is no evidence of intracranial hemorrhage, mass lesion, or acute infarct. The ventri cles and subarachnoid spaces are dilated, consistent with moderate atrophy. Low attenuation regions are seen within the periventricular white matter bilaterally, likely representing changes from chroni c microvascular ischemic disease. There is no evidence of edema, mass effect or midline shift. The visualized paranasal sinuses and mastoid air cells are clear. Impression: No intracranial hemorrhage, mass, or acute infarct. Atrophy and chronic white matter changes, as above. Reviewed, dictated and finalized at location . GRATION SOLUTION ARCHITECT Impression: No intracranial hemorrhage, mass, or acute infarct. Atrophy and chronic white matter changes, as above.
--- NOTE | ~2024-04-21 | CT_ITS ---
Noncontrast CT scan of the cervical spine Technique: Multiple contiguous axial [address] images of the cervical spine were obtained and rec onstructed in 2D sagittal and coronal planes on the acquisition scanner. Dose reduction technique was used on this scan by utilizing automated exposure control, adjustment of the mA and/or kV according to patient size. The dose-length product (DLP) was 113.67 mGy-cm. Clinical History: Pain Findings: No fractures or dislocations. 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 There is moder ate degenerative disc change at the cervical spine. There is moderate to advanced facet arthropathy t hroughout cervical spine. There is degenerative change at the articulation of the odontoid process wi th the anterior arch of C1. There is bilateral neural foraminal narrowing at C3-C4, C4-C5, C5-C6, and C6-C7. No prevertebral soft tissue swelling. Impression: No fracture or subluxation of the cervical spine. Degenerative spondylosis, as above. Reviewed, dictated and finalized at [facility]. S SERVICE PROMOTER Impression: No fracture or subluxation of the cervical spine. Degenerative spondylosis, as above.
[2024-04-22 00:04] VITALS: BP 152/84; PULSE 63; RESP 18; TEMP 36.7; O2SAT 100
--- NOTE | 2024-04-22 00:28 | ED.FALL ---
HPI - Fall General Chief Complaint: Fall Stated Complaint: fall on Eliquis Time Seen by Provider: 04/22/24 00:01 Related Data Home Medications Medication Instructions Recorded Confirmed omeprazole 20 mg tablet,delayed 20 mg PO DAILY 10/02/23 04/14/24 release vitamins A,C,L-hceq-hsbqbm 2,148 1 tablet PO DAILY 10/02/23 04/14/24 mcg-113 mg-45 mg-17.4 mg tablet (PreserVision AREDS) finasteride 5 mg tablet 5 mg PO DAILY 11/29/23 04/14/24 ketotifen fumarate 0.025 % (0.035 1 drp EACH EYE Q12H 11/29/23 04/14/24 %) eye drops cholecalciferol (vitamin D3) 25 25 mcg PO DAILY 04/14/24 04/14/24 mcg (1,000 unit) capsule (Vitamin D3) potassium chloride 20 mEq 20 meq PO DAILY 04/14/24 04/14/24 tablet,extended release Allergies Allergy/AdvReac Type Severity Reaction Status Date / Time cyclobenzaprine Allergy Anaphylaxis Verified 04/21/24 23:27 [From Flexeril] hydrocodone [From Vicodin] Allergy Unresponsiv Verified 04/21/24 23:27 e tramadol Allergy Anaphylaxis Verified 04/21/24 23:27 vancomycin Allergy Hallucinati Verified 04/21/24 23:27 ng [facility] Past Medical History Medical History 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 Benign prostatic hyperplasia Diet-controlled diabetes mellitus A1c was 5.7% in September 2023. Hyperlipidemia Hypertension Kidney stones Surgical History Surgical History History of lumbar fusion Family History Family History Father Alzheimers disease Mother Diabetes mellitus Hypertension Heart problem Spinocerebellar ataxia Sibling Hypertension Social History Social History Social History: Surrogate medical decision maker: Na Leach, spouse. Code status: Full code. Smoking status: Former smoker Tobacco type: pipe Alcohol intake: never Substance use: never Substance use type: does not use Do You Feel Safe in your Home?: Yes Lack of Transportation: No Lack of Food: Never True Current Housing: I Have Housing Concerned About Future Housing: No Difficulty Paying Gas/Electric Bills: No Difficulty Paying for Meds: No Currently Unemployed: No Education: Trade/Vocational Certificate Difficulty w/ Childcare or Family Care: No Spiritual care concerns: No Course Course Emergency Course: Patient and family updated on workup and agree with plan of care Vital Signs Vital signs: Vital Signs Temperature 98.0 F 04/22/24 00:04 Pulse Rate 63 04/22/24 00:04 Respiratory Rate 18 04/22/24 00:04 Blood Pressure 152/84 H 04/22/24 00:04 Pulse Oximetry 100 04/22/24 00:04 Temperature 98.0 F 04/22/24 00:04 Pulse Rate 63 04/22/24 00:04 Respiratory Rate 18 04/22/24 00:04 Blood Pressure 152/84 H 04/22/24 00:04 Pulse Oximetry 100 04/22/24 00:04 MDM - Fall MDM Narrative Medical decision making narrative: Patient presents to the ER after a fall today. Unsure if he hit his head. He is on anticoagulation. He is neurologically intact at baseline. CT brain and cervical spine without acute findings. Chest and pelvic x-rays without acute findings. Patient and family updated on workup and agree with plan of care. He is to follow up with PCP. He was given warnings to return to the ER Differential Diagnosis Differential diagnosis: Likely concussion without loss of consciousness and other (subdural hematoma, contusion, hip fracture, pelvic fracture) Imaging Data Radiologist's impression: CT cervical spine: No acute fracture or subluxation CT brain: No acute intracranial hemorrhage. No midline shift or mass effect Chest x-ray: No focal consolidation, pleural effusion or pneumothorax. No cardiomegaly Left hip/pelvic x-ray: No acute fracture dislocation. Osseous demineralization. Catheter in the urinary bladder Critical Care Time Critical Care Time Critical Care Time: No Discharge Plan Discharge Clinical Impression: Fall Qualifiers: Encounter type: initial encounter Qualified Code(s): W19.XXXA - Unspecified fall, initial encounter Patient Disposition: Home, Self-Care Condition: Stable Instructions: Fall Prevention (ED) Additional Instructions: Return to the emergency department if you experience fever, chest pain, shortness of breath, abdominal pain with nausea and vomiting, weakness, numbness, or any other symptoms that are concerning to you. Follow up with primary care doctor Prescriptions: No Action omeprazole 20 mg Tablet,Delayed Release (Dr/Ec) 20 mg PO DAILY PreserVision AREDS 2,148 mcg-113 mg-45 mg-17.4mg Tablet 1 tablet PO DAILY ketotifen fumarate 0.025 % (0.035 %) Drops 1 drp EACH EYE Q12H finasteride 5 mg tablet 5 mg PO DAILY ferrous sulfate 325 mg (65 mg iron) tablet 325 mg PO BID Qty: 60 0RF cholecalciferol (vitamin D3) [Vitamin D3] 25 mcg (1,000 unit) Capsule 25 mcg PO DAILY potassium chloride 20 mEq tablet extended release 20 meq PO DAILY cephalexin 500 mg capsule 500 mg PO Q8H 7 Days Qty: 21 0RF Eliquis DVT-PE Treat 30D Start 5 mg (74 tabs) tablets,dose pack See Rx Instructions .ROUTE .COMPLEX Qty: 74 0RF Rx Instructions: orally per package directions Follow-up/Referrals: UNKNOWN,DOCTOR [Primary Care Provider] -
[2024-04-22 01:39] VITALS: BP 146/80; PULSE 76; RESP 14; O2SAT 98
== END 2024-04-22 01:42 | disposition home or self-care (01) ==
PROVIDERS: Emergency Provider Physician Assistant
DX: S79.912A Unspecified injury of left hip, initial encounter (principal); S19.9XXA Unspecified injury of neck, initial encounter; F03.90 Unspecified dementia, unspecified severity, without behavioral disturbance, psychotic disturbance, mood disturbance, and anxiety; I10 Essential (primary) hypertension; E11.9 Type 2 diabetes mellitus without complications; E78.5 Hyperlipidemia, unspecified; N40.0 Benign prostatic hyperplasia without lower urinary tract symptoms; Z98.1 Arthrodesis status; Z92.3 Personal history of irradiation; Z87.891 Personal history of nicotine dependence; Z87.442 Personal history of urinary calculi; Z79.01 Long term (current) use of anticoagulants; W18.30XA Fall on same level, unspecified, initial encounter
CPT/HCPCS: 70450; 71046; 72125; 73502; 99284

== ENCOUNTER 2024-04-22 11:32 | Inpatient (IN) | payer MEDICARE, SELFPAY ==
--- NOTE | ~2024-04-22 | CT_ITS ---
CT of the Abdomen and Pelvis: Indication: GI bleed Technique: 2.5 mm axial scans were obtained through the abdomen and pelvis following intravenous adm inistration of 100 cc of Omnipaque 350. Dose reduction technique was used on this scan by utilizing a utomated exposure control and iterative reconstruction technique. The dose-length product (DLP) was 2 15.65 mGy-cm. COMPARISON: 12/06/2023 Findings: Scans through the lung bases are unremarkable. The liver, spleen, pancreas, gallbladder, adrenals and kidneys are within normal limits. No evidence of aortic aneurysm. No lymphadenopathy. No bowel obstruction or bowel wall thickening. There is no evidence to suggest acute appendicitis. Images through the pelvis were performed. Booth catheter and air present in the urinary bladder. Pros carvajal gland is markedly enlarged. No ascites. Impression: No CT evidence for active GI bleeding/active contrast extravasation. Markedly enlarged prostate gland. Reviewed, dictated and finalized at [facility]. YARD PAINTER Impression: No CT evidence for active GI bleeding/active contrast extravasation. Markedly enlarged prostate gland.
--- NOTE | ~2024-04-22 | US_ITS ---
EXAMINATION: US venous doppler [facility] DATE: 04/22/2024 19:34 INDICATION: Recent DVT with heme positive stool TECHNIQUE: Grayscale ultrasound images without and with compression and Doppler ultrasound images of the bilateral lower extremity veins were obtained. COMPARISON: 04/14/2024 FINDINGS: The visualized portions of right common femoral vein and profunda (deep) femoral vein are patent, as well as the greater saphenous vein outflow. Only partial compressibility with limited flow identified within the distal femoral, popliteal, poste rior tibial, peroneal, and gastrocnemius. The visualized portions of left common femoral vein, profunda femoral vein, femoral vein, popliteal v ein, peroneal veins, posterior tibial veins, and greater saphenous vein outflow are patent. IMPRESSION: Partial compressibility and limited flow within the distal right femoral, popliteal, posterior tibial , peroneal, and gastrocnemius. No deep venous thrombosis within the left lower extremity. Reviewed, dictated and finalized at location A. CULAR MODELER IMPRESSION: Partial compressibility and limited flow within the distal right femoral, popli teal, posterior tibial, peroneal, and gastrocnemius. No deep venous thrombosis within the left lower extremity.
[2024-04-22 11:37] VITALS: BP 125/68; PULSE 61; RESP 16; TEMP 36.6; O2SAT 100
[2024-04-22 12:30] VITALS: BP 120/65; PULSE 69; RESP 14; O2SAT 99
--- NOTE | 2024-04-22 12:42 | ED.GIBLEED ---
HPI - GI Bleed General Chief complaint: GI Bleed Stated complaint: dark stuff in diaper Time Seen by Provider: 04/22/24 12:10 Source: patient Mode of arrival: ambulatory Limitations: dementia History of Present Illness HPI Narrative: 78-year-old here with and son for concern for GI bleed. He had a fall last night was seen here and had negative imaging. Since last night he developed some dark tarry looking stool in his diaper this morning. Otherwise has been acting normally. Denies any pain. He is on Eliquis for DVT. Related Data Home Medications Medication Instructions Recorded Confirmed omeprazole 20 mg tablet,delayed 20 mg PO DAILY 10/02/23 04/14/24 release vitamins A,C,T-ksrv-upowtg 2,148 1 tablet PO DAILY 10/02/23 04/14/24 mcg-113 mg-45 mg-17.4 mg tablet (PreserVision AREDS) finasteride 5 mg tablet 5 mg PO DAILY 11/29/23 04/14/24 ketotifen fumarate 0.025 % (0.035 1 drp EACH EYE Q12H 11/29/23 04/14/24 %) eye drops cholecalciferol (vitamin D3) 25 25 mcg PO DAILY 04/14/24 04/14/24 mcg (1,000 unit) capsule (Vitamin D3) potassium chloride 20 mEq 20 meq PO DAILY 04/14/24 04/14/24 tablet,extended release Allergies Allergy/AdvReac Type Severity Reaction Status Date / Time cyclobenzaprine Allergy Anaphylaxis Verified 04/21/24 23:27 [From Flexeril] hydrocodone [From Vicodin] Allergy Unresponsiv Verified 04/21/24 23:27 e tramadol Allergy Anaphylaxis Verified 04/21/24 23:27 vancomycin Allergy Hallucinati Verified 04/21/24 23:27 ng Review of Systems Review of Systems: All systems reviewed & are unremarkable except as noted in HPI and below PMFSH Past Medical History Medical History 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 Benign prostatic hyperplasia Diet-controlled diabetes mellitus A1c was 5.7% in September 2023. Hyperlipidemia Hypertension Kidney stones Surgical History Surgical History History of lumbar fusion Family History Family History Father Alzheimers disease Mother Diabetes mellitus Hypertension Heart problem Spinocerebellar ataxia Sibling Hypertension Social History Social History Social History: Surrogate medical decision maker: Na Leach, spouse. Code status: Full code. Smoking status: Former smoker Tobacco type: pipe Alcohol intake: never Substance use: never Substance use type: does not use Do You Feel Safe in your Home?: Yes Lack of Transportation: No Lack of Food: Never True Current Housing: I Have Housing Concerned About Future Housing: No Difficulty Paying Gas/Electric Bills: No Difficulty Paying for Meds: No Currently Unemployed: No Education: Trade/Vocational Certificate Difficulty w/ Childcare or Family Care: No Spiritual care concerns: No Exam Narrative: Constitutional: Generally well appearing, no acute distress Head: Atraumatic, no deformities. Eyes: Pupils equal, round, and reactive to light. Neck: Supple, no tracheal deviation, no JVD. ENMT: Mucous membranes moist Cardiovascular: S1, S2 auscultated. No murmurs, rubs, or gallops. No S3/S4. Normal Distal pulses. No peripheral edema. Respiratory: Lung sounds equal. No wheezes, rales, or rhonchi. Gastrointestinal: Abdomen was soft and non-tender. Non-distended. No rebound or guarding. Genitourinary: Booth catheter in place Musculoskeletal: Normal muscle tone and bulk. No obvious deformities or tenderness over extremities. Skin: No rashes. Neurological: Strength 5/5 in extremities. Cranial nerves I-XII grossly intact. Distal sensation intact. Mental Status: Awake, alert and oriented x3. Follows commands Course Vital Signs Vital signs: Vital Signs Temperature 36.6 C 04/22/24 11:37 Pulse Rate 61 04/22/24 11:37 Respiratory Rate 16 04/22/24 11:37 Blood Pressure 125/68 04/22/24 11:37 Pulse Oximetry 100 04/22/24 11:37 Oxygen Delivery Room Air 04/22/24 11:37 Temperature 36.6 C 04/22/24 11:37 Pulse Rate 64 04/22/24 14:00 Respiratory Rate 15 04/22/24 14:00 Blood Pressure 123/70 04/22/24 14:00 Pulse Oximetry 99 04/22/24 14:00 Oxygen Delivery Room Air 04/22/24 11:37 MDM - GI Bleed MDM Narrative Medical decision making narrative: 78-year-old here with concern for GI bleed. He is on Eliquis. Had some dark tarry stool this morning. On exam his vitals are regular. Abdomen is benign to palpation. He is on iron pills. Concern for acute GI bleed. Obtaining CTA abdomen pelvis to try and identify, giving fluids and obtaining abdominal labs. Workup shows no obvious anemia. CTA shows no focal obvious source of bleeding. Patient will be admitted to hospital for a GI bleed on anticoagulation. No indication at this point for reversal of coagulation. Spoke with hospitalist who accepts admission. Patient and family agreeable. Lab Data 04/22/24 13:01 04/22/24 13:01 Labs: Lab Results 04/22/24 04/22/24 Range/Units 13:01 13:02 WBC 4.9 (4.5-10.0) K/mm3 RBC 4.33 L (4.6-6.20) M/mm3 Hgb 12.8 L (14.0-18.0) g/dL Hct 39.9 L (42.0-52.0) % MCV 92.1 (80-100) fl MCH 29.6 (26-34) pg MCHC 32.1 (32-36) g/dl RDW 14.0 (11.5-14.5) % Plt Count 157 (150-375) k/mm3 MPV 10.4 (7.4-10.4) fl Immature Gran % (Auto) 0.4 (0-0.5) % Neut % (Auto) 70.6 (45.5-73.1) % Lymph % (Auto) 18.3 (18.3-44.2) % [place] % (Auto) 7.8 (2.6-8.5) % Eos % (Auto) 1.9 (0-4.4) % Baso % (Auto) 1.0 (0.2-1.2) % Lymph # (Auto) 0.89 L (0.9-3.2) K/mm3 [place] # (Auto) 0.4 (0.1-0.6) K/mm3 Eos # (Auto) 0.1 (0-0.3) K/mm3 Baso # (Auto) 0.1 (0.0-0.1) K/mm3 Abs Immat Gran (auto) 0.02 (0.00-0.031) K/mm3 Absolute Neuts (auto) 3.4 (1.3-6.7) K/mm3 Absolute Nucleated RBC 0.000 (0.0-0.012) K/mm3 Nucleated RBC % 0.0 (0.0-0.2) % PT 16.8 H (11.1-14.7) Seconds INR 1.3 APTT 30.2 (22.3-36.8) Seconds Sodium 138 (137-145) mmol/L Potassium 3.3 L (3.4-5.0) mmol/L Chloride 103 (98-107) mmol/L Carbon Dioxide 32 H (22-30) mmol/L Anion Gap 3 L (4-12) mmol/L BUN 11 (9-20) mg/dL Creatinine 0.70 (0.7-1.3) mg/dL Estim Creat Clear Calc 50 ml/min Estimated GFR > 60 (59 - ) Glucose 87 (65-110) mg/dL Lactic Acid 0.8 (0.7-2.0) mmol/L Calcium 9.2 (8.4-10.2) mg/dL Magnesium 2.2 (1.6-2.3) mg/dL Total Bilirubin 0.6 (0.2-1.3) mg/dL AST 22 (17-59) U/L ALT 11 (6-50) U/L Alkaline Phosphatase 66 (38-126) U/L Total Protein 7.0 (6.3-8.2) g/dL Albumin 3.5 (3.5-5.1) g/dL Critical Care Time Critical Care Time Critical Care Time: Yes Total Critical Care Time: 35 Discharge Plan Discharge Clinical Impression: Acute GI bleeding Patient Disposition: Still a Patient Condition: Serious Prescriptions: No Action omeprazole 20 mg Tablet,Delayed Release (Dr/Ec) 20 mg PO DAILY PreserVision AREDS 2,148 mcg-113 mg-45 mg-17.4mg Tablet 1 tablet PO DAILY ketotifen fumarate 0.025 % (0.035 %) Drops 1 drp EACH EYE Q12H finasteride 5 mg tablet 5 mg PO DAILY ferrous sulfate 325 mg (65 mg iron) tablet 325 mg PO BID Qty: 60 0RF cholecalciferol (vitamin D3) [Vitamin D3] 25 mcg (1,000 unit) Capsule 25 mcg PO DAILY potassium chloride 20 mEq tablet extended release 20 meq PO DAILY cephalexin 500 mg capsule 500 mg PO Q8H 7 Days Qty: 21 0RF Eliquis DVT-PE Treat 30D Start 5 mg (74 tabs) tablets,dose pack See Rx Instructions .ROUTE .COMPLEX Qty: 74 0RF Rx Instructions: orally per package directions Follow-up/Referrals: UNKNOWN,DOCTOR [Primary Care Provider] - Time of Disposition: 14:28
[2024-04-22 13:08] LABS: Basophils Absolute Auto 0.1 K/mm3 (0.0-0.1); Eosinophils Absolute Auto 0.1 K/mm3 (0-0.3); Eosinophils Percent Auto 1.9 % (0-4.4); Hematocrit 39.9 % (42.0-52.0); Hemoglobin 12.8 g/dL (14.0-18.0); Immature Granulocyte Absolute 0.02 K/mm3 (0.00-0.031); Immature Granulocyte Percent A 0.4 % (0-0.5); Lymphocytes Absolute Auto 0.89 K/mm3 (0.9-3.2); Lymphocytes Percent Auto 18.3 % (18.3-44.2); Mean Corpuscular HGB Conc 32.1 g/dl (32-36); Mean Corpuscular Hemoglobin 29.6 pg (26-34); Mean Corpuscular Volume 92.1 fl (80-100); Mean Platelet Volume 10.4 fl (7.4-10.4); Monocytes Absolute Auto 0.4 K/mm3 (0.1-0.6); Monocytes Percent Auto 7.8 % (2.6-8.5); Neutrophils Absolute Auto 3.4 K/mm3 (1.3-6.7); Neutrophils Percent Auto 70.6 % (45.5-73.1); Platelet Count Result 157 k/mm3 (150-375); Red Blood Count 4.33 M/mm3 (4.6-6.20); White Blood Count 4.9 K/mm3 (4.5-10.0)
[2024-04-22] MEDS: SODIUM CHLORIDE 0.9% IV 1,000 ML 999 ML IV CONT (13:12)
[2024-04-22] MEDS: PANTOPRAZOLE SODIUM IV 40 MG VIAL 80 MG IV PUSH (13:12)
[2024-04-22 13:17] LABS: Alanine Aminotransferase 11 U/L (6-50); Albumin Level 3.5 g/dL (3.5-5.1); Alkaline Phosphatase 66 U/L (38-126); Anion Gap 3 mmol/L (4-12); Aspartate Amino Transferase 22 U/L (17-59); Bilirubin,Total 0.6 mg/dL (0.2-1.3); Blood Urea Nitrogen 11 mg/dL (9-20); Calcium 9.2 mg/dL (8.4-10.2); Carbon Dioxide 32 mmol/L (22-30); Chloride 103 mmol/L (98-107); Estimated CRCL calculation 50 ml/min; Estimated Glomerular Filt Rate > 60; Glucose 87 mg/dL (65-110); Magnesium 2.2 mg/dL (1.6-2.3); Potassium 3.3 mmol/L (3.4-5.0); Sodium 138 mmol/L (137-145)
[2024-04-22 13:23] LABS: INR 1.3; Prothrombin Time 16.8 Seconds (11.1-14.7)
[2024-04-22 13:24] LABS: Partial Thromboplastin Time 30.2 Seconds (22.3-36.8)
[2024-04-22 13:25] LABS: Lactic Acid Reflex 0.8 mmol/L (0.7-2.0)
[2024-04-22 13:30] VITALS: BP 148/70; PULSE 63; RESP 16; O2SAT 100
[2024-04-22 14:00] VITALS: BP 123/70; PULSE 64; RESP 15; O2SAT 99
--- NOTE | 2024-04-22 15:00 | P.HP_ITS ---
H&P: HPI History of Present Illness Date/Time: 04/22/24 15:00 Chief Complaint: Dark stools. 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 The patient, , and son provides the following history. This morning his noticed dark stool in his briefs and he was brought in for evaluation where his stool was found to be Hemoccult positive. This is the 1st time that she has noticed dark stools. She also mentions a small amount of blood in the Booth catheter today but that has since cleared up. The patient himself has no complaints and denies chest pain, shortness of breath, abdominal pain, nausea, vomiting, and diarrhea. It should be noted that the patient was seen emergency department after a fall yesterday and imaging was negative at that time. He has had 3 falls in the past month and indicates that he frequently gets tripped up in his Booth catheter which causes the falls. There were no reports of head trauma or loss of consciousness In the ED: He was afebrile on arrival with stable vital signs. Labs were significant for hemoglobin of 12.8, potassium 3.3, lactic acid 0.8. CTA of the abdomen and pelvis showed no evidence of active GI bleeding or contracts extravasation and a markedly enlarged prostate. He is being admitted in this setting for close monitoring and further evaluation. Review of Systems Review of Systems: 12 systems were reviewed and are negativ e except for as per HPI. 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 Benign prostatic hyperplasia with urinary retention chronic indwelling Booth catheter Deep vein thrombosis of right lower extremity (04/14/24) Dementia Diet-controlled diabetes mellitus A1c was 5.7% in September 2023. Hyperlipidemia Hypertension Kidney stones Surgical History Surgical History History of lumbar fusion Family History Family History Father Alzheimers disease Mother Diabetes mellitus Hypertension Heart problem Spinocerebellar ataxia Sibling Hypertension Social History Social History Social History: Surrogate medical decision maker: Na Leach, spouse. Code status: Full code. Smoking status: Former smoker Tobacco type: pipe Alcohol intake: never Substance use: never Substance use type: does not use Do You Feel Safe in your Home?: Yes Lack of Transportation: No Lack of Food: Never True Current Housing: I Have Housing Concerned About Future Housing: No Difficulty Paying Gas/Electric Bills: No Difficulty Paying for Meds: No Currently Unemployed: No Education: High School Diploma/GED Difficulty w/ Childcare or Family Care: No Spiritual care concerns: No Meds Home Medications and Allergies Home Medications Medication Instructions Recorded Confirmed Type omeprazole 20 mg tablet,delayed 20 mg PO DAILY 10/02/23 04/22/24 History release finasteride 5 mg tablet 5 mg PO DAILY 11/29/23 04/22/24 History apixaban 5 mg (74 tabs) tablets in See Rx Instructions PO .COMPLEX 04/14/24 04/22/24 Rx a dose pack (Getbazza DVT-PE Treat #74 ea 30D Start) cholecalciferol (vitamin D3) 25 25 mcg PO DAILY 04/14/24 04/22/24 History mcg (1,000 unit) capsule (Vitamin D3) PreserVision AREDS-2 1 tablet PO DAILY 04/22/24 04/22/24 History carboxymethylcellulose sodium 1 % 1 drp EACH EYE PRN PRN Dry Eyes 04/22/24 04/22/24 History eye gel in a dropperette (Refresh Celluvisc) ferrous sulfate 325 mg (65 mg 325 mg PO DAILY 04/22/24 04/22/24 History iron) tablet potassium chloride 10 mEq 20 meq PO DAILY 04/22/24 04/22/24 History capsule,extended release Allergies Allergy/AdvReac Type Severity Reaction Status Date / Time cyclobenzaprine Allergy Anaphylaxis Verified 04/21/24 23:27 [From Flexeril] hydrocodone [From Vicodin] Allergy Unresponsiv Verified 04/21/24 23:27 e tramadol Allergy Anaphylaxis Verified 04/21/24 23:27 vancomycin Allergy Hallucinati Verified 04/21/24 23:27 ng Vital Signs Vital Signs - 24 hr 04/22/24 11:37 04/22/24 12:30 04/22/24 13:30 Temperature 97.8 F Pulse Rate 61 69 63 Respiratory Rate 16 14 16 Blood Pressure 125/68 120/65 148/70 H Pulse Oximetry 100 99 100 Oxygen Delivery Room Air 04/22/24 14:00 Temperature Pulse Rate 64 Respiratory Rate 15 Blood Pressure 123/70 Pulse Oximetry 99 Oxygen Delivery Exam Narrative: General: Very thin and frail elderly male. Weight: 40.7 kg. BMI: 17.3. HEENT: Normocephalic, atraumatic. Pupils are reactive. Extraocular motions are intact. He has difficulties closing his right eyelid which is a chronic finding post resection of vestibular schwannoma. Tacky mucous membranes. Neck: No JVD. Respiratory: Respirations are nonlabored and lungs are clear to auscultation. Cardiovascular: Regular rate rhythm with normal S1-S2. Gastrointestinal: Abdomen is scaphoid and nontender with positive bowel sounds. Genitourinary: Booth catheter draining dark yellow/nohemi urine. Skin: Warm. Extremities: No cyanosis or clubbing. Trace right lower extremity edema. Neurological: Alert. He did not answer orientation questions. Cranial nerves 2- 12 are grossly intact aside from the right eyelid which he cannot close fully as above. He is generally weak without gross focal findings. Psychiatric: Poor eye contact. Answers are gabby. He is otherwise cooperative. H&P: Results Labs Labs: Short CBC 04/22/24 Range/Units 13:01 WBC 4.9 (4.5-10.0) K/mm3 Hgb 12.8 L (14.0-18.0) g/dL Hct 39.9 L (42.0-52.0) % Plt Count 157 (150-375) k/mm3 BMP 04/22/24 13:01 Sodium 138 Potassium 3.3 L Chloride 103 Carbon Dioxide 32 H BUN 11 Creatinine 0.70 Glucose 87 Calcium 9.2 Liver Function 04/22/24 Range/Units 13:01 Total Bilirubin 0.6 (0.2-1.3) mg/dL AST 22 (17-59) U/L ALT 11 (6-50) U/L Alkaline Phosphatase 66 (38-126) U/L Albumin 3.5 (3.5-5.1) g/dL Imaging Abdomen/Pelvis CTA 04/22/24 14:09 Impression: 1. No CT evidence for active GI bleeding/active contrast extravasation. 2. Markedly enlarged prostate gland. Assessment and Plan Assessment and plan (1) Melena: Code(s): K92.1 - Melena Status: Acute (2) Deep vein thrombosis of right lower extremity: Onset Date: 04/14/24 Code(s): I82.401 - Acute embolism and thrombosis of unspecified deep veins of right lower extremity Status: Acute (3) Benign prostatic hyperplasia with urinary retention: Code(s): N40.1 - Benign prostatic hyperplasia with lower urinary tract symptoms; R33.8 - Other retention of urine Status: Acute (4) Hypokalemia: Code(s): E87.6 - Hypokalemia Status: Acute (5) Dementia: Code(s): F03.90 - Unspecified dementia, unspecified severity, without behavioral disturbance, psychotic disturbance, mood disturbance, and anxiety Status: Acute Plan The patient presented to the emergency department for evaluation after his found dark stools in his briefs as detailed in HPI. Labs, imaging, EKG, and all reports were personally reviewed. Stool was Hemoccult positive in the emergency department and GI has been consulted. He was recently started on apixaban for right lower extremity deep venous thrombosis which will have to be held for now and he will be on strict bed rest. Repeat lower extremity venous Doppler ultrasounds have been ordered for further evaluation. Given his history of gross hematuria and clot formation and now with suspected occult GI bleeding, he may be a candidate for IVC filter though he will see how he does over the next couple of days. Monitor hemoglobin and hematocrit. Potassium will be replaced and monitored. Vital signs were reviewed and they are stable. His medications will be reviewed and resumed as appropriate. Findings and treatment plan were discussed with the patient. Questions were solicited and answered to satisfaction. The patient's medical management will be taken over by the hospitalist team in a.m. Quality VTE Prophylaxis VTE prophylaxis: mechanical ordered If No VTE Prophylaxis Answer both mechanical and pharmacologic: Reason no pharmacologic proph: medical contraindication (melena) The patient has been admitted under observation status. Hospitalist [facility] Advance Care Plan I have confirmed that the patient's Advanced Care Plan is present, code status is documented, or surrogate decision maker is listed in patient medical record.: Yes Medication Reconciliation I have utilized all available resources to obtain, update and review the patients current medications (includes all prescriptions, OTC, herbals, cannabis, and nutritional supplements).: Yes
[2024-04-22 15:38] VITALS: BMI 17.2
--- NOTE | 2024-04-22 15:44 | ADMGEN ---
This patient, Humberto Leach, was admitted to Medical Room 344-01. Patient/family oriented to hospital policies and general routines including ID bracelet, bed and alarms, visiting hours, pain management, procedures, bathroom and other care routines, personal items, smoking policy, room service/diet, and visiting hours. Information on how to activate the Rapid Response Team has been discussed. Patient/Family are encouraged to report perceived risks to care and to ask questions if they do not understand what they are told or what they should do.
[2024-04-22 15:47] VITALS: BP 160/77; PULSE 66; RESP 16; TEMP 36.5; O2SAT 100
[2024-04-22 15:51] VITALS: BMI 17.3
[2024-04-22 18:46] LABS: Hematocrit 35.8 % (42.0-52.0); Hemoglobin 11.9 g/dL (14.0-18.0)
[2024-04-22] MEDS: POTASSIUM CHLORIDE 20 MEQ ER TABLET PO (19:19)
[2024-04-22 20:31] VITALS: BP 142/84; PULSE 65; RESP 16; TEMP 36.9; O2SAT 100
[2024-04-22] MEDS: PANTOPRAZOLE SODIUM IV 40 MG VIAL IV PUSH (20:39)
[2024-04-23 00:38] LABS: Hemoglobin 12.2 g/dL (14.0-18.0); Mean Corpuscular Hemoglobin 29.8 pg (26-34); Mean Corpuscular Volume 90.5 fl (80-100); Platelet Count Result 155 k/mm3 (150-375); Red Blood Count 4.09 M/mm3 (4.6-6.20); Red Cell Distribution Width 13.9 % (11.5-14.5); White Blood Count 5.2 K/mm3 (4.5-10.0)
[2024-04-23 00:49] LABS: Anion Gap 2 mmol/L (4-12); Blood Urea Nitrogen 8 mg/dL (9-20); Calcium 8.8 mg/dL (8.4-10.2); Carbon Dioxide 28 mmol/L (22-30); Chloride 107 mmol/L (98-107); Estimated CRCL calculation 59 ml/min; Estimated Glomerular Filt Rate > 60; Glucose 78 mg/dL (65-110); Potassium 3.5 mmol/L (3.4-5.0); Sodium 137 mmol/L (137-145)
[2024-04-23] MEDS: ACETAMINOPHEN 500 MG TABLET 1000 MG PO (02:12)
[2024-04-23 06:00] VITALS: BP 140/77; PULSE 69; RESP 16; TEMP 37.1; O2SAT 96
[2024-04-23 06:39] LABS: Hematocrit 39.3 % (42.0-52.0); Hemoglobin 12.9 g/dL (14.0-18.0)
[2024-04-23] MEDS: POTASSIUM CHLORIDE 20 MEQ ER TABLET PO (08:44)
[2024-04-23] MEDS: FINASTERIDE 5 MG TABLET PO (08:44)
[2024-04-23] MEDS: CHOLECALCIFEROL 1,000 UNITS TABLET 1000 UNITS PO (08:44)
[2024-04-23] MEDS: OPTI-GEN TAB 1 TABLET PO (08:44)
[2024-04-23] MEDS: FERROUS SULFATE 325 MG TABLET DR BY MOUTH (08:44)
[2024-04-23] MEDS: PANTOPRAZOLE SODIUM IV 40 MG VIAL IV PUSH ×2 (08:45→20:21)
--- NOTE | 2024-04-23 08:59 | WPDGICN ---
Assessment and Plan Assessment and plan (1) Dark stools: Code(s): R19.5 - Other fecal abnormalities Status: Acute Assessment and Plan: only one episode of dark stoo and small amount also + fobt he is hemodynamically stable, hgb stable at 12 (actually above his baseline) and no more signs of active bleeding I had a lengthy conversation with his family, they prefer to hold off on endoscopic evaluation. They are quite concerned that last time he required anesthesia his dementia worsened we can treat as possible gastritis since h/h stable, continue with protonix daily no plan for egd unless acute drop h/h or active bleeding ok to eat (2) Occult blood in stools: Code(s): R19.5 - Other fecal abnormalities Status: Acute (3) Benign prostatic hyperplasia with urinary retention: Code(s): N40.1 - Benign prostatic hyperplasia with lower urinary tract symptoms; R33.8 - Other retention of urine Status: Acute (4) Chronic blood loss anemia: Code(s): D50.0 - Iron deficiency anemia secondary to blood loss (chronic) Status: Acute (5) Dementia: Code(s): F03.90 - Unspecified dementia, unspecified severity, without behavioral disturbance, psychotic disturbance, mood disturbance, and anxiety Status: Acute GI Consult Note Consult date/time: 04/23/24 08:59 Reason for consult: dark stool HPI: Humberto Leach is a 78 year old male history of dementia, 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 History is obtained mostly from who is at bedside and his son by phone as patient has dementia. He had one episode of dark stool, ER evaluation noted that stool was found to be Hemoccult positive. He was just started on eliquis. hgb has been stable at 12, previous hospitalization 11/2023 with hgb 7 (had hematuria and BPH). No hematemesis, history of ulcers or recent EGD. ER evaluation showed hemoglobin of 12.8, potassium 3.3, lactic acid 0.8. CTA of the abdomen and pelvis showed no evidence of active GI bleeding or contracts extravasation and a markedly enlarged prostate. He is doing well. Review of Systems Constitutional: Constitutional: Denies chills Eyes: Eyes: Denies blurry vision ENT: Reports Normal hearing present Cardiovascular: Cardiovascular: Denies chest pain Respiratory: Respiratory: Denies cough Gastrointestinal: Gastrointestinal: Denies abdominal pain Genitourinary: Comments: BPH, has a wright Musculoskeletal: Musculoskeletal: Denies neck pain Integumentary/Breasts: Skin/Breast: Denies rash Neurologic: Denies Abnormal speech present Psychiatric: Psychiatric: Reports confusion [facility] Past Medical History Medical History (Updated 04/23/24 @ 09:04 by Gustavo Zuñiga MD) 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 Benign prostatic hyperplasia with urinary retention chronic indwelling Wright catheter Dark stools Deep vein thrombosis of right lower extremity (04/14/24) Dementia Diet-controlled diabetes mellitus A1c was 5.7% in September 2023. Hyperlipidemia Hypertension Kidney stones Occult blood in stools Surgical History Surgical History History of lumbar fusion Family History Family History Father Alzheimers disease Mother Diabetes mellitus Hypertension Heart problem Spinocerebellar ataxia Sibling Hypertension Social History Social History Social History: Surrogate medical decision maker: Na Leach, spouse. Code status: Full code. Smoking status: Former smoker Tobacco type: pipe Alcohol intake: never Substance use: never Substance use type: does not use Do You Feel Safe in your Home?: Yes Lack of Transportation: No Lack of Food: Never True Current Housing: I Have Housing Concerned About Future Housing: No Difficulty Paying Gas/Electric Bills: No Difficulty Paying for Meds: No Currently Unemployed: No Education: High School Diploma/GED Difficulty w/ Childcare or Family Care: No Spiritual care concerns: No Meds Home Medications and Allergies Home Medications Medication Instructions Recorded Confirmed Type omeprazole 20 mg tablet,delayed 20 mg PO DAILY 10/02/23 04/22/24 History release finasteride 5 mg tablet 5 mg PO DAILY 11/29/23 04/22/24 History apixaban 5 mg (74 tabs) tablets in See Rx Instructions PO .COMPLEX 04/14/24 04/22/24 Rx a dose pack (Unype DVT-PE Treat #74 ea 30D Start) cholecalciferol (vitamin D3) 25 25 mcg PO DAILY 04/14/24 04/22/24 History mcg (1,000 unit) capsule (Vitamin D3) PreserVision AREDS-2 1 tablet PO DAILY 04/22/24 04/22/24 History carboxymethylcellulose sodium 1 % 1 drp EACH EYE PRN PRN Dry Eyes 04/22/24 04/22/24 History eye gel in a dropperette (Refresh Celluvisc) ferrous sulfate 325 mg (65 mg 325 mg PO DAILY 04/22/24 04/22/24 History iron) tablet potassium chloride 10 mEq 20 meq PO DAILY 04/22/24 04/22/24 History capsule,extended release Allergies Allergy/AdvReac Type Severity Reaction Status Date / Time cyclobenzaprine Allergy Anaphylaxis Verified 04/21/24 23:27 [From Flexeril] hydrocodone [From Vicodin] Allergy Unresponsiv Verified 04/21/24 23:27 e tramadol Allergy Anaphylaxis Verified 04/21/24 23:27 vancomycin Allergy Hallucinati Verified 04/21/24 23:27 ng Vital Signs Vital Signs - 24 hr 04/22/24 11:37 04/22/24 12:30 04/22/24 13:30 Temperature 97.8 F Pulse Rate 61 69 63 Respiratory Rate 16 14 16 Blood Pressure 125/68 120/65 148/70 H Pulse Oximetry 100 99 100 Oxygen Delivery Room Air 04/22/24 14:00 04/22/24 15:47 04/22/24 20:31 Temperature 97.7 F 98.4 F Pulse Rate 64 66 65 Respiratory Rate 15 16 16 Blood Pressure 123/70 160/77 H 142/84 H Pulse Oximetry 99 100 100 Oxygen Delivery 04/22/24 20:00 04/23/24 06:00 Temperature 98.8 F Pulse Rate 69 Respiratory Rate 16 Blood Pressure 140/77 Pulse Oximetry 96 Oxygen Delivery Room Air Exam Const: General: comfortable and no acute distress HENMT: Face/Nose/Sinus: Normal nares present Eyes: General: appearance normal, both eyes and all related structures Neck: Neck: supple Resp: Auscultation: clear to auscultation bilaterally Cardio: Rate: regular rate Rhythm: regular rhythm GI: Inspection: non-distended GI Palp: Yes Soft to palpation and No Tenderness to palpation present (GI) Auscultation: normal bowel sounds Urinary Catheter: Urinary Catheter: patent and draining Skin: General skin exam: normal color Neuro: Speech: normal speech Other: awake and alert but sometimes gets confused Extrem: General: normal to inspection Psych: Attitude: not belligerent Results Labs 04/23/24 06:32 04/23/24 00:25 Labs: Short CBC 04/22/24 04/22/24 04/23/24 Range/Units 13:01 18:38 00:25 WBC 4.9 5.2 (4.5-10.0) K/mm3 Hgb 12.8 L 11.9 L 12.2 L (14.0-18.0) g/dL Hct 39.9 L 35.8 L (42.0-52.0) % Plt Count 157 (150-375) k/mm3 04/23/24 04/23/24 04/23/24 Range/Units 00:25 00:25 06:32 WBC (4.5-10.0) K/mm3 Hgb Cancelled 12.9 L (14.0-18.0) g/dL Hct 37.0 L Cancelled 39.3 L (42.0-52.0) % Plt Count 155 (150-375) k/mm3 [facility] 04/22/24 04/23/24 13:01 00:25 Sodium 138 137 Potassium 3.3 L 3.5 Chloride 103 107 Carbon Dioxide 32 H 28 BUN 11 8 L Creatinine 0.70 0.60 L Glucose 87 78 Calcium 9.2 8.8 Liver Function 04/22/24 Range/Units 13:01 Total Bilirubin 0.6 (0.2-1.3) mg/dL AST 22 (17-59) U/L ALT 11 (6-50) U/L Alkaline Phosphatase 66 (38-126) U/L Albumin 3.5 (3.5-5.1) g/dL
--- NOTE | 2024-04-23 11:26 | P.PNIM_ITS ---
Progress Note: A&P Assessment and Plan (1) Melena: Code(s): K92.1 - Melena Status: Acute Assessment and Plan: - Suspected possible gastritis. - prefers conservative mgt for now as anesthesia worsens pt dementia. - Continue protonix. - GI following. - Hgb stable and we'll continue to trend. - Started on regular diet per GI. (2) Deep vein thrombosis of right lower extremity: Onset Date: 04/14/24 Code(s): I82.401 - Acute embolism and thrombosis of unspecified deep veins of right lower extremity Status: Acute Assessment and Plan: - Continue Apixaban. (3) Benign prostatic hyperplasia with urinary retention: Code(s): N40.1 - Benign prostatic hyperplasia with lower urinary tract symptoms; R33.8 - Other retention of urine Status: Acute Assessment and Plan: - Maintain wright catheter. - Continue finasteride. (4) Hypokalemia: Code(s): E87.6 - Hypokalemia Status: Acute Assessment and Plan: - Replaced. Follow repeat levels. (5) Dementia: Code(s): F03.90 - Unspecified dementia, unspecified severity, without behavioral disturbance, psychotic disturbance, mood disturbance, and anxiety Status: Acute Assessment and Plan: - Safety monitoring and assist with care. - bedside and assisting with care. Plan Monitor H/H closely and we'll consider d/c in AM if patient remains stable. Time Spent With Patient Time with patient: 15 - 25 minutes Subjective Date/time seen: 04/23/24 10:20 Patient calm on bedrest being assisted with breakfast by . Patient pleasantly confused but oriented to self, denying any distressful symptoms. Pt spouse reporting patien's dementia worsened 7 months ago after undergoing a procedure with anesthesia. Spouse prefers conservative mgt for now and defers EGD. Interval history: Patient calm on bedrest, pleasantly confused but in no distress. Patient was brought in to the ER with reports of melena at home. Patient recently started on Eliquis for RLE DVT. Patient's Hgb remains stable for now and we'll monitor closely. Review of Systems Review of Systems: 12 systems were reviewed and are negativ e except for as per HPI. Exam Narrative: General: Very thin and frail elderly male. Weight: 40.7 kg. BMI: 17.3. HEENT: Normocephalic, atraumatic. Pupils are reactive. Extraocular motions are intact. He has difficulties closing his right eyelid which is a chronic finding post resection of vestibular schwannoma. Tacky mucous membranes. Neck: Supple. Respiratory: Respirations are nonlabored and lungs are clear lenny. Cardiovascular: Regular rate rhythm with normal S1-S2. Gastrointestinal: Abdomen soft, nontender with positive bowel sounds. Genitourinary: Wright catheter draining yellow/nohemi urine. Skin: Warm and dry. Extremities: Warm and dry. No cyanosis or clubbing. No extremity edema. Neurological: Alert. Pleasantly confused. Cranial nerves II-XII are grossly intact. aside from the right eyelid which he cannot close fully as above. He is generally weak without gross focal findings. Psychiatric: Pleasant and cooperative. Objective Data Vital Signs Vital Signs: Vital Signs - 24 hr 04/22/24 11:37 04/22/24 12:30 04/22/24 13:30 Temperature 97.8 F Pulse Rate 61 69 63 Respiratory Rate 16 14 16 Blood Pressure 125/68 120/65 148/70 H Pulse Oximetry 100 99 100 Oxygen Delivery Room Air 04/22/24 14:00 04/22/24 15:47 04/22/24 20:31 Temperature 97.7 F 98.4 F Pulse Rate 64 66 65 Respiratory Rate 15 16 16 Blood Pressure 123/70 160/77 H 142/84 H Pulse Oximetry 99 100 100 Oxygen Delivery 04/22/24 20:00 04/23/24 06:00 04/23/24 08:00 Temperature 98.8 F Pulse Rate 69 Respiratory Rate 16 Blood Pressure 140/77 Pulse Oximetry 96 Oxygen Delivery Room Air Room Air Intake/Output Intake/Output: Intake & Output 04/20/24 04/21/24 04/22/24 04/23/24 23:59 23:59 23:59 23:59 Intake Total 1210 240 Output Total 110 2000 Balance 1100 -1760 Meds/Results Medications: Active Medications Generic Name Dose Route Start Last Admin Trade Name Freq PRN Reason Stop Dose Admin Artificial Tears 1 drop 04/22/24 22:59 Artificial Tears Ophth Soln 15 Ml Bottle EACH EYE PRN PRN Dry Eye(s) Ferrous Sulfate 325 mg 04/23/24 09:00 04/23/24 08:44 Ferrous Sulfate [address] BY MOUTH 325 mg DAILY KAM Administration Finasteride 5 mg 04/23/24 09:00 04/23/24 08:44 Finasteride 5 Mg Tablet PO 5 mg DAILY KAM Administration Multivitamins/Minerals 1 tablet 04/23/24 09:00 04/23/24 08:44 Opti-Gen Tab PO 1 tablet QAM KAM Administration Pantoprazole Sodium 40 mg 04/22/24 21:00 04/23/24 08:45 Pantoprazole Sodium Iv 40 Mg Vial IV PUSH 40 mg Q12HR KAM Administration Pantoprazole Sodium 40 mg 04/23/24 09:00 Pantoprazole 40 Mg Tablet PO QAM KAM Potassium Chloride 20 meq 04/23/24 09:00 04/23/24 08:44 Potassium Chloride 20 Meq Er Tablet PO 20 meq DAILY KAM Administration Vitamin D 1,000 units 04/23/24 09:00 04/23/24 08:44 Cholecalciferol 1,000 Units Tablet PO 1,000 units DAILY KAM Administration Radiology Results: ITS Impressions Abdomen/Pelvis CTA 04/22/24 14:09 Impression: No CT evidence for active GI bleeding/active contrast extravasation. Markedly enlarged prostate gland. Venous Doppler Study 04/22/24 19:51 IMPRESSION: Partial compressibility and limited flow within the distal right femoral, popliteal, posterior tibial, peroneal, and gastrocnemius. No deep venous thrombosis within the left lower extremity. Labs Labs: Laboratory Results - last 24 hr 04/22/24 04/22/24 04/22/24 13:01 13:02 18:38 WBC 4.9 RBC 4.33 L Hgb 12.8 L 11.9 L Hct 39.9 L 35.8 L MCV 92.1 MCH 29.6 MCHC 32.1 RDW 14.0 Plt Count 157 MPV 10.4 Immature Gran % (Auto) 0.4 Neut % (Auto) 70.6 Lymph % (Auto) 18.3 Calhoun % (Auto) 7.8 Eos % (Auto) 1.9 Baso % (Auto) 1.0 Lymph # (Auto) 0.89 L Calhoun # (Auto) 0.4 Eos # (Auto) 0.1 Baso # (Auto) 0.1 Abs Immat Gran (auto) 0.02 Absolute Neuts (auto) 3.4 Absolute Nucleated RBC 0.000 Nucleated RBC % 0.0 PT 16.8 H INR 1.3 APTT 30.2 Sodium 138 Potassium 3.3 L Chloride 103 Carbon Dioxide 32 H Anion Gap 3 L BUN 11 Creatinine 0.70 Estim Creat Clear Calc 50 Estimated GFR > 60 Glucose 87 Lactic Acid 0.8 Calcium 9.2 Magnesium 2.2 Total Bilirubin 0.6 AST 22 ALT 11 Alkaline Phosphatase 66 Total Protein 7.0 Albumin 3.5 04/23/24 04/23/24 04/23/24 00:25 00:25 00:25 WBC 5.2 RBC 4.09 L Hgb 12.2 L Cancelled Hct 37.0 L Cancelled MCV 90.5 MCH 29.8 MCHC 33.0 RDW 13.9 Plt Count 155 MPV 10.0 Immature Gran % (Auto) Neut % (Auto) Lymph % (Auto) Calhoun % (Auto) Eos % (Auto) Baso % (Auto) Lymph # (Auto) Calhoun # (Auto) Eos # (Auto) Baso # (Auto) Abs Immat Gran (auto) Absolute Neuts (auto) Absolute Nucleated RBC Nucleated RBC % PT INR APTT Sodium 137 Potassium 3.5 Chloride 107 Carbon Dioxide 28 Anion Gap 2 L BUN 8 L Creatinine 0.60 L Estim Creat Clear Calc 59 Estimated GFR > 60 Glucose 78 Lactic Acid Calcium 8.8 Magnesium 2.0 Total Bilirubin AST ALT Alkaline Phosphatase Total Protein Albumin 04/23/24 06:32 WBC RBC Hgb 12.9 L Hct 39.3 L MCV MCH MCHC RDW Plt Count MPV Immature Gran % (Auto) Neut % (Auto) Lymph % (Auto) Calhoun % (Auto) Eos % (Auto) Baso % (Auto) Lymph # (Auto) Calhoun # (Auto) Eos # (Auto) Baso # (Auto) Abs Immat Gran (auto) Absolute Neuts (auto) Absolute Nucleated RBC Nucleated RBC % PT INR APTT Sodium Potassium Chloride Carbon Dioxide Anion Gap BUN Creatinine Estim Creat Clear Calc Estimated GFR Glucose Lactic Acid Calcium Magnesium Total Bilirubin AST ALT Alkaline Phosphatase Total Protein Albumin Quality VTE Prophylaxis VTE prophylaxis: mechanical ordered Hospitalist MIPS Advance Care Plan I have confirmed that the patient's Advanced Care Plan is present, code status is documented, or surrogate decision maker is listed in patient medical record.: Yes Medication Reconciliation I have utilized all available resources to obtain, update and review the patients current medications (includes all prescriptions, OTC, herbals, cannabis, and nutritional supplements).: Yes
[2024-04-23 12:53] LABS: Hematocrit 38.5 % (42.0-52.0)
[2024-04-23 14:26] VITALS: BP 131/71; PULSE 70; RESP 16; TEMP 36.6; O2SAT 97
[2024-04-23 15:56] LABS: IFOB Positive Control Positive; Immunochemical Fecal Occult Bl Negative (N)
[2024-04-23] MEDS: oxyBUTYnin CHLORIDE XL 5 MG TAB.ER.24 PO (17:09)
[2024-04-23 20:19] VITALS: BP 115/62; PULSE 75; RESP 16; TEMP 37.2; O2SAT 98
[2024-04-23] MEDS: LORazepam (*CRX) 0.5 MG TABLET PO (20:21)
[2024-04-23] MEDS: diphenhydrAMINE HCl INJ 50 MG/ML VIAL IV PUSH (22:49)
[2024-04-23] MEDS: HALOPERIDOL LACTATE 5 MG/ML VIAL IM (22:50)
[2024-04-23 22:55] VITALS: BP 108/66; PULSE 73; RESP 18; TEMP 36.9; O2SAT 97
[2024-04-23 23:55] VITALS: BP 129/71; PULSE 73; RESP 16; TEMP 36.9; O2SAT 98
[2024-04-24 00:55] VITALS: BP 138/80; PULSE 81; RESP 16; TEMP 36.5; O2SAT 97
[2024-04-24 05:26] VITALS: BP 148/85; PULSE 74; RESP 14; TEMP 37; O2SAT 95
--- NOTE | 2024-04-24 12:25 | WPDGIPROGNO ---
Progress Note: A&P Assessment and Plan (1) Dark stools: Code(s): R19.5 - Other fecal abnormalities Status: Acute Assessment and Plan: no signs of gib conservative treatment no need of egd anyway since h/h stable say that he normally has loose stools that appears oily- will order pancreatic elastase in stool to check for EPI patient also to follow in office no objections to discharge (2) Dementia: Code(s): F03.90 - Unspecified dementia, unspecified severity, without behavioral disturbance, psychotic disturbance, mood disturbance, and anxiety Status: Acute (3) Chronic blood loss anemia: Code(s): D50.0 - Iron deficiency anemia secondary to blood loss (chronic) Status: Acute Assessment and Plan: h/h stable Subjective Date/time seen: 04/24/24 12:25 Interval history: he was agitated yesterday and required haldol doing ok now, about to have lunch no report of gib at bedside, she also mentions that he has been having oily stool Review of Systems Review of Systems: All systems reviewed & are unremarkable except as noted in HPI and below Exam Const: General: comfortable and no acute distress HENMT: Face/Nose/Sinus: Normal nares present Eyes: General: appearance normal, both eyes and all related structures Neck: Neck: supple Resp: Auscultation: clear to auscultation bilaterally Cardio: Rate: regular rate Rhythm: regular rhythm GI: Inspection: non-distended GI Palp: Yes Soft to palpation and No Tenderness to palpation present (GI) Auscultation: normal bowel sounds Urinary Catheter: Urinary Catheter: patent and draining Skin: General skin exam: normal color Neuro: Speech: normal speech Other: awake and alert but sometimes gets confused Extrem: General: normal to inspection Psych: Attitude: not belligerent Objective Data Vital Signs Vital Signs: Vital Signs - 24 hr 04/23/24 14:26 04/23/24 20:19 04/23/24 20:00 Temperature 97.8 F 98.9 F Pulse Rate 70 75 Respiratory Rate 16 16 Blood Pressure 131/71 115/62 Pulse Oximetry 97 98 Oxygen Delivery Room Air 04/23/24 22:55 04/23/24 23:55 04/23/24 23:55 Temperature 98.5 F 98.5 F 98.5 F Pulse Rate 73 73 73 Respiratory Rate 18 16 16 Blood Pressure 108/66 129/71 129/71 Pulse Oximetry 97 98 98 Oxygen Delivery 04/24/24 00:55 04/24/24 05:26 Temperature 97.7 F 98.6 F Pulse Rate 81 74 Respiratory Rate 16 14 Blood Pressure 138/80 148/85 H Pulse Oximetry 97 95 Oxygen Delivery Intake/Output Intake/Output: Intake & Output 04/21/24 04/22/24 04/23/24 04/24/24 23:59 23:59 23:59 23:59 Intake Total 1210 660 Output Total 110 2850 450 Balance 1100 -2190 -450 Meds/Results Medications: Active Medications Generic Name Dose Route Start Last Admin Trade Name Freq PRN Reason Stop Dose Admin Artificial Tears 1 drop 04/22/24 22:59 Artificial Tears Ophth Soln 15 Ml Bottle EACH EYE PRN PRN Dry Eye(s) Ferrous Sulfate 325 mg 04/23/24 09:00 04/23/24 08:44 Ferrous Sulfate [address] BY MOUTH 325 mg DAILY KAM Administration Finasteride 5 mg 04/23/24 09:00 04/23/24 08:44 Finasteride 5 Mg Tablet PO 5 mg DAILY KAM Administration Multivitamins/Minerals 1 tablet 04/23/24 09:00 04/23/24 08:44 Opti-Gen Tab PO 1 tablet QAM KAM Administration Oxybutynin Chloride 5 mg 04/23/24 16:59 04/23/24 17:09 Oxybutynin Chloride Xl 5 Mg Tab.Er.24 PO 5 mg QAM KAM Administration Pantoprazole Sodium 40 mg 04/22/24 21:00 04/23/24 20:21 Pantoprazole Sodium Iv 40 Mg Vial IV PUSH 40 mg Q12HR KAM Administration Pantoprazole Sodium 40 mg 04/23/24 09:00 Pantoprazole 40 Mg Tablet PO QAM KAM Potassium Chloride 20 meq 04/23/24 09:00 04/23/24 08:44 Potassium Chloride 20 Meq Er Tablet PO 20 meq DAILY KAM Administration Vitamin D 1,000 units 04/23/24 09:00 04/23/24 08:44 Cholecalciferol 1,000 Units Tablet PO 1,000 units DAILY KAM Administration Radiology Results: ITS Impressions Abdomen/Pelvis CTA 04/22/24 14:09 Impression: No CT evidence for active GI bleeding/active contrast extravasation. Markedly enlarged prostate gland. Venous Doppler Study 04/22/24 19:51 IMPRESSION: Partial compressibility and limited flow within the distal right femoral, popliteal, posterior tibial, peroneal, and gastrocnemius. No deep venous thrombosis within the left lower extremity. Labs Labs: Laboratory Results - last 24 hr 04/23/24 04/23/24 12:49 14:58 Hgb 13.0 L Hct 38.5 L Stl Occult Blood (IFOB) Negative
--- NOTE | 2024-04-24 13:47 | P.DS_ITS ---
DS: Admitting Diagnosis Discharge Date 04/24/2024 Admitting Diagnosis Dark Tarry Stool DS: Discharge Diagnosis Discharge Diagnosis (1) Melena: Code(s): K92.1 - Melena Status: Acute Assessment and Plan: - Suspected possible gastritis. - prefers conservative mgt for now as anesthesia worsens pt dementia. - Seen by GI and conservative mgt elected per request. - Hgb stable inpatient; 12.2>>12.9>>13 - FOB test done prior to discharge Negative (04/23/24). - Daily protonix recommended. - Tolerating meals well with no GI discomfort. (2) Deep vein thrombosis of right lower extremity: Onset Date: 04/14/24 Code(s): I82.401 - Acute embolism and thrombosis of unspecified deep veins of right lower extremity Status: Acute Assessment and Plan: - Continue Apixaban. (3) Benign prostatic hyperplasia with urinary retention: Code(s): N40.1 - Benign prostatic hyperplasia with lower urinary tract symptoms; R33.8 - Other retention of urine Status: Acute Assessment and Plan: - Maintain wright catheter. - Continue finasteride. (4) Hypokalemia: Code(s): E87.6 - Hypokalemia Status: Acute Assessment and Plan: - Replaced and wnl prior to discharge. (5) Dementia: Code(s): F03.90 - Unspecified dementia, unspecified severity, without behavioral disturbance, psychotic disturbance, mood disturbance, and anxiety Status: Acute Assessment and Plan: - Safety monitoring and assist with care. - bedside and assisting with care. Plan Discharge patient home with family care. DS: Summary Hospital Course Reason for hospitalization: Dark Tarry Stool Hospital Course: Patient with a Hx of dementia and was brought in to the ER with reports of dark tarry stools at home. Patient had been seen in the ER the previous day following a fall incident where imaging done were negative including CT head. Pt also did not hit head and no obvious injuries were observed. On this presentation, FOB test done in the ER was apparently positive and patient was admitted for evaluation of possible GI bleed. Patient was seen by GI and after a lengthy discussion, opted for conservative treatment as she reported that patient's dementia always worsens with anesthesia therefore EGD would make it worse. Conservative mgt was elected and pt's Hgb monitored closely, with an upward trend noted; 12.2>>12.9>>13. FOB was done the evening before patient discharge and it was negative. No obvious signs of bleeding noted and pt appears to be baseline except for sleepy this AM from sedatives overnight due to aggression. Patient will be discharged home later today when his mentation improves, with no acute distress noted or reported prior to discharge. Status at Discharge Functional status at discharge: uses cane/walker Overall status at discharge: patient is progressing back to baseline Time Spent with Patient Time attestation: Total time spent providing and/or coordinating discharge services: Time spent: Greater than 30 minutes Exam Narrative: General: Very thin and frail elderly male. Weight: 46.8 kg. BMI: 16.7. HEENT: Normocephalic, atraumatic. PERRL. EOMI, Moist mucous membranes. Neck: Supple. Respiratory: Lungs clear bilaterally. Cardiovascular: Regular rate rhythm with normal S1-S2. Gastrointestinal: Abdomen soft, nontender with positive bowel sounds. Genitourinary: Wright catheter draining yellow/nohemi urine. Skin: Warm and dry. No lesions noted. Extremities: Warm and dry. No cyanosis or clubbing. No extremity edema. Neurological: Sleepy and confused. Cranial nerves II-XII are grossly intact. No focal neuro deficits noted. Psychiatric: Sleepy and confused. DS: Data Data Completed and Pending Labs on day of discharge: Labs from last 24 hours 04/23/24 14:58 Stl Occult Blood (IFOB) Negative Discharge Plan Discharge Attending physician on discharge: Antione Noel Consulting providers: Gustavo Zuñiga Discharging Clinician: Silviano Kinney Anticipated Discharge Date/Time: 04/24/24 14:05 Patient Disposition: Home Health Service Activity: as tolerated Diet: as tolerated Discharge Instructions: Per Care Coordination Patient is current with [facility] for RN visits for wright catheter changes every month. Please resume [facility] services at discharge. [phone] RN please fax completed discharge instructions to [phone] Patient Instructions: Antibiotic Form, Apixaban (By mouth), Inferior Vena Cava (IVC) Filter Placement (GEN) Stand Alone Forms: General Discharge Information Follow-up/Referrals: Gustavo Zuñiga MD [Physician] - 4 Weeks Discharge Medications: New pantoprazole 40 mg Tablet,Delayed Release (Dr/Ec) 40 mg PO QAM Qty: 30 0RF mirtazapine [Remeron] 15 mg tablet 15 mg PO HS Qty: 30 0RF Continued finasteride 5 mg tablet 5 mg PO DAILY cholecalciferol (vitamin D3) [Vitamin D3] 25 mcg (1,000 unit) Capsule 25 mcg PO DAILY Eliquis DVT-PE Treat 30D Start 5 mg (74 tabs) tablets,dose pack See Rx Instructions .ROUTE .COMPLEX Qty: 74 0RF Rx Instructions: orally per package directions potassium chloride 10 mEq Capsule, Extended Release 20 meq PO DAILY carboxymethylcellulose sodium [Refresh Celluvisc] 1 % Dropperette,Gel 1 drp EACH EYE PRN PRN (Reason: Dry Eyes) PreserVision AREDS-2 1 tablet PO DAILY ferrous sulfate 325 mg (65 mg iron) tablet 325 mg PO DAILY Discontinued omeprazole 20 mg Tablet,Delayed Release (Dr/Ec) 20 mg PO DAILY Date of admission: 04/23/24 13:31 Primary Care Provider: Ridge Cardozo Admitting Provider: Dayne Cabral Attending physician on admission: Dayne Cabral Condition: Serious Quality VTE Prophylaxis VTE prophylaxis: mechanical ordered Hospitalist MIPS Heart Failure (Exclusion) Patient has history of Heart Transplant or Left Ventricular Assistive Device?: No IF YES, STOP HERE Heart Failure (Qualifier) Patient has current or prior documentation of LVEF less than or equal to 40%, or mod/servere depressed LVSF?: No IF NO, STOP HERE
[2024-04-24 14:00] VITALS: BP 148/76; PULSE 71; RESP 18; TEMP 36.6; O2SAT 97
[2024-05-05 23:04] LABS: Pancreatic Elastase, Stool. 724 mcg/g (>200)
== END 2024-04-24 15:07 | disposition home or self-care (01) | DRG 378 ==
LOC: ANHED 14:28 → ANH3MEDSUR 14:35 → ANH3MED 15:06
PROVIDERS: Internal Medicine Gastroenterology; Physician Assistant; Admitting Provider General Practice; Emergency Provider Emergency Medicine; Visit Provider Nurse Practitioner Adult Health
DX: K29.71 Gastritis, unspecified, with bleeding (principal); I82.401 Acute embolism and thrombosis of unspecified deep veins of right lower extremity; N40.1 Benign prostatic hyperplasia with lower urinary tract symptoms; R33.8 Other retention of urine; E87.6 Hypokalemia; D50.0 Iron deficiency anemia secondary to blood loss (chronic); F03.90 Unspecified dementia, unspecified severity, without behavioral disturbance, psychotic disturbance, mood disturbance, and anxiety; W19.XXXA Unspecified fall, initial encounter; K21.9 Gastro-esophageal reflux disease without esophagitis; E11.9 Type 2 diabetes mellitus without complications; E78.5 Hyperlipidemia, unspecified; I10 Essential (primary) hypertension; Z79.01 Long term (current) use of anticoagulants; Z98.1 Arthrodesis status; Z86.718 Personal history of other venous thrombosis and embolism
CPT/HCPCS: 36415; 70450; 71046; 72125; 73502; 74174; 80048; 80053; 82274; 82653; 83605; 83735; 85014; 85018; 85025; 85027; 85610; 85730; 93970; 96361; 96374; 96376; 99285; A9270; G0378; J1200; J1630; J2470; J7030; Q9967

== ENCOUNTER 2024-05-03 11:43 | Emergency (ER) | payer MEDICARE, SELFPAY ==
[2024-05-03 11:46] VITALS: BP 124/67; PULSE 66; RESP 16; TEMP 36.4; O2SAT 100
--- NOTE | 2024-05-03 12:34 | ED.GENADULT ---
HPI - General Adult General Chief complaint: Urogenital-Male Stated complaint: my catheter came out Time Seen by Provider: 05/03/24 12:21 Source: patient Mode of arrival: ambulatory Limitations: no limitations History of Present Illness HPI narrative: This is a 78-year-old male who presents to the ED for chief complaint of catheter problem. Reports that the catheter came out this morning. Family states the balloon was deflated and became displaced around 0930. Reports that he has had catheter in place since September of 2023 but this most recent catheter was placed 04/14/2024. Patient denies any complaints. His is bedside states that he has been acting his normal self. states they have tried calling multiple times to the urology office but have not yet got appointment. Related Data Home Medications Medication Instructions Recorded Confirmed finasteride 5 mg tablet 5 mg PO DAILY 11/29/23 04/22/24 cholecalciferol (vitamin D3) 25 25 mcg PO DAILY 04/14/24 04/22/24 mcg (1,000 unit) capsule (Vitamin D3) PreserVision AREDS-2 1 tablet PO DAILY 04/22/24 04/22/24 carboxymethylcellulose sodium 1 % 1 drp EACH EYE PRN PRN Dry Eyes 04/22/24 04/22/24 eye gel in a dropperette (Refresh Celluvisc) ferrous sulfate 325 mg (65 mg 325 mg PO DAILY 04/22/24 04/22/24 iron) tablet potassium chloride 10 mEq 20 meq PO DAILY 04/22/24 04/22/24 capsule,extended release Allergies Allergy/AdvReac Type Severity Reaction Status Date / Time cyclobenzaprine Allergy Anaphylaxis Verified 04/21/24 23:27 [From Flexeril] hydrocodone [From Vicodin] Allergy Unresponsiv Verified 04/21/24 23:27 e tramadol Allergy Anaphylaxis Verified 04/21/24 23:27 vancomycin Allergy Hallucinati Verified 04/21/24 23:27 ng Review of Systems Review of Systems: All systems as dictated in 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 Hyperlipidemia Hypertension Kidney stones Occult blood in stools Surgical History Surgical History History of lumbar fusion Family History Family History Father Alzheimers disease Mother Diabetes mellitus Hypertension Heart problem Spinocerebellar ataxia Sibling Hypertension Social History Social History Social History: Surrogate medical decision maker: Na Leach, spouse. Code status: Full code. Smoking status: Former smoker Tobacco type: pipe Alcohol intake: never Substance use: never Substance use type: does not use Do You Feel Safe in your Home?: Yes Lack of Transportation: No Lack of Food: Never True Current Housing: I Have Housing Concerned About Future Housing: No Difficulty Paying Gas/Electric Bills: No Difficulty Paying for Meds: No Currently Unemployed: No Education: High School Diploma/GED Difficulty w/ Childcare or Family Care: No Spiritual care concerns: No Exam Narrative: GENERAL: Well-appearing, well-nourished, and in no acute distress. HEAD: Normocephalic, atraumatic. EYES: PERRLA and EOMI. ENT: Nares clear, no rhinorrhea or epistaxis. Mucous membranes moist. Oropharynx without tonsillar hypertrophy exudate or other lesions. NECK: Supple. No adenopathy or masses. CHEST: No respiratory distress. Clear to auscultation. No wheezes rales or rhonchi HEART: Regular rate and rhythm. No murmur heard. Normal peripheral pulses. ABDOMEN: Soft, nontender, nondistended, normal active bowel sounds. MSK: Normal range of motion. No edema. SKIN: Warm, dry, no rash. NEURO: Alert and oriented x4. No focal deficits. PSYCH: Normal mood and affect. Course Vital Signs Vital signs: Vital Signs Temperature 97.6 F 05/03/24 11:46 Pulse Rate 66 05/03/24 11:46 Respiratory Rate 16 05/03/24 11:46 Blood Pressure 124/67 05/03/24 11:46 Pulse Oximetry 100 05/03/24 11:46 Oxygen Delivery Room Air 05/03/24 11:46 Temperature 97.6 F 05/03/24 11:46 Pulse Rate 83 05/03/24 14:41 Respiratory Rate 14 05/03/24 14:41 Blood Pressure 121/76 05/03/24 14:41 Pulse Oximetry 98 05/03/24 14:41 Oxygen Delivery Room Air 05/03/24 11:46 Medical Decision Making MDM Narrative Medical decision making narrative: This is a 78-year-old male who presents to the ED for chief complaint of dislodged urinary catheter. Vitals are normal. Exam is benign overall. Patient has been using a 18 [place] coude catheter. Nursing staff was able to replace a standard 18 [place] catheters today. He is draining well. No gross hematuria. Urinalysis obtained and does not show overt evidence of urinary tract infection. There are RBCs, however this is felt to be traumatic due to Booth catheter placement. Patient will be discharged in stable condition. Supportive measures discussed and return precautions given. Patient is understanding and agreeable with plan for discharge with PCP/urology follow-up. Vital Signs Vital Signs: Vital Signs Temperature 97.6 F 05/03/24 11:46 Pulse Rate 66 05/03/24 11:46 Respiratory Rate 16 05/03/24 11:46 Blood Pressure 124/67 05/03/24 11:46 Pulse Oximetry 100 05/03/24 11:46 Oxygen Delivery Room Air 05/03/24 11:46 Temperature 97.6 F 05/03/24 11:46 Pulse Rate 83 05/03/24 14:41 Respiratory Rate 14 05/03/24 14:41 Blood Pressure 121/76 05/03/24 14:41 Pulse Oximetry 98 05/03/24 14:41 Oxygen Delivery Room Air 05/03/24 11:46 Lab Data Labs: Lab Results 05/03/24 Range/Units 13:50 Urine Color Yellow (Yellow) Urine Appearance Clear (Clear) Urine pH 5.5 (5.0-9.0) Ur Specific Treece 1.014 (1.001-1.035) Urine Protein 1+ H (Negative) mg/dL Urine Glucose (UA) Negative (Negative) mg/dL Urine Ketones Negative (Negative) mg/dL Ur Blood (Man) 3+ H (Negative) Urine Nitrate Negative (Negative) Urine Bilirubin Negative (Negative) Urine Urobilinogen 1.0 (<2.0) mg/dL Add Ur Microanalysis Reviewed Leukocyte Esterase Rfl Trace H (Negative) TANNER/UL Urine RBC >100 H (0-2) /hpf Urine WBC 0-5 (0-3) /hpf Ur Squamous Epith Cells None seen (Few) /hpf Urine Bacteria None seen /hpf Urine Casts 0-2 Discharge Plan Discharge Clinical Impression: Displacement of Booth catheter Patient Disposition: Home, Self-Care Condition: Stable Instructions: Antibiotic Form Additional Instructions: Exam today is reassuring. There is no evidence of UTI. Please follow-up with urology office on this issue. If you have any new or worsening symptoms please return to the ER for further evaluation. Prescriptions: No Action finasteride 5 mg tablet 5 mg PO DAILY cholecalciferol (vitamin D3) [Vitamin D3] 25 mcg (1,000 unit) Capsule 25 mcg PO DAILY Eliquis DVT-PE Treat 30D Start 5 mg (74 tabs) tablets,dose pack See Rx Instructions .ROUTE .COMPLEX Qty: 74 0RF Rx Instructions: orally per package directions potassium chloride 10 mEq Capsule, Extended Release 20 meq PO DAILY carboxymethylcellulose sodium [Refresh Celluvisc] 1 % Dropperette,Gel 1 drp EACH EYE PRN PRN (Reason: Dry Eyes) PreserVision AREDS-2 1 tablet PO DAILY ferrous sulfate 325 mg (65 mg iron) tablet 325 mg PO DAILY pantoprazole 40 mg Tablet,Delayed Release (Dr/Ec) 40 mg PO QAM Qty: 30 0RF mirtazapine [Remeron] 15 mg tablet 15 mg PO HS Qty: 30 0RF Follow-up/Referrals: PHYSICIAN,PEOPLESOFT ADMINISTRATOR [Non-Staff] - Time of Disposition: 14:20
[2024-05-03 14:09] LABS: Add Urine Microscopic? YES; Appearance Urine Clear (Clear); Bacteria Urine None Seen /hpf; Bilirubin Urine Negative (Negative); Blood Urine 3+ (Negative); Color Urine Yellow (Yellow); Glucose Urine UA Negative (Negative); Ketones Urine Negative (Negative); Leukocyte Esterase Ur Trace LEU/UL (Negative); Need Manual Microscopic Reviewed; Nitrate Urine Negative (Negative); Non Pathogenic Casts 0-2; Protein Urine 1+ mg/dL (Negative); RBC Urine >100 /hpf (0-2); Specific Grav Ur 1.014 (1.001-1.035); Squamous Epithelial Cell Urine None Seen /hpf (Few); WBC Urine 0-5 /hpf (0-3); pH Urine 5.5 (5.0-9.0)
[2024-05-03 14:41] VITALS: BP 121/76; PULSE 83; RESP 14; O2SAT 98
== END 2024-05-03 14:45 | disposition home or self-care (01) ==
PROVIDERS: Emergency Provider Physician Assistant
DX: T83.028A Displacement of other urinary catheter, initial encounter (principal); F03.90 Unspecified dementia, unspecified severity, without behavioral disturbance, psychotic disturbance, mood disturbance, and anxiety; N40.1 Benign prostatic hyperplasia with lower urinary tract symptoms; R33.8 Other retention of urine; I10 Essential (primary) hypertension; E11.9 Type 2 diabetes mellitus without complications; E78.5 Hyperlipidemia, unspecified; Z98.1 Arthrodesis status; Z87.442 Personal history of urinary calculi; Z86.718 Personal history of other venous thrombosis and embolism; Z87.891 Personal history of nicotine dependence; Y84.6 Urinary catheterization as the cause of abnormal reaction of the patient, or of later complication, without mention of misadventure at the time of the procedure; Z79.01 Long term (current) use of anticoagulants; Z79.899 Other long term (current) drug therapy
CPT/HCPCS: 51702; 81001; 99283

== ENCOUNTER 2024-05-15 11:43 | Emergency (ER) | payer MEDICARE, SELFPAY ==
--- NOTE | ~2024-05-15 | XR_ITS ---
EXAMINATION: XR chest 1V Exam Date/Time: 05/15/2024 15:15 CANOE MAKER HISTORY: increasing weakness, fall 1 wk ago Comparison: 04/22/2024. RESULT: Lines, tubes, and devices: None. Lungs and pleura: Clear. Cardiomediastinal silhouette: Stable. Other: No acute osseous or upper abdominal finding. IMPRESSION: No acute cardiopulmonary process. Reviewed, dictated and finalized at location K. E MAKER
--- NOTE | ~2024-05-15 | CT_ITS ---
EXAMINATION: CT brain wo con DATE: 05/15/2024 14:54 INDICATION: fall 1 week ago on Elliquis . TECHNIQUE: Computed tomography (CT) of the head was performed without intravenous contrast. The mA wa s adjusted according to patient size. Iterative reconstruction technique was employed. The dose-lengt h product was 681.00 mGy-cm. COMPARISON: 04/22/2024. FINDINGS: No acute intracranial hemorrhage or extra-axial fluid collection. No hydrocephalus, mass, or herniation. No acute ischemic infarct. Unremarkable dural venous sinus attenuation. No acute osseous abnormality. The aerated spaces are clear. Moderate atrophy and chronic white matter change. Atherosclerotic intracranial calcification. Bilater al lens replacements. Chronic metallic focus in the right orbit. IMPRESSION: No acute intracranial process. Reviewed, dictated and finalized at location K. ETARY OFFICE CLERK
--- NOTE | ~2024-05-15 | CT_ITS ---
EXAMINATION: CT cervical spine wo con DATE: 05/15/2024 14:54 INDICATION: fall 1 week ago TECHNIQUE: Computed tomography (CT) of the cervical spine was performed without intravenous contrast. Automated exposure control and iterative reconstruction technique were employed. The dose-length pro duct was 126.98 mGy-cm. COMPARISON: 04/22/2024. FINDINGS: Vertebral Body Alignment: Intact. Craniocervical and atlantoaxial alignment: Severe degenerative change. Alignment intact. Osseous structures/fracture: No evidence of a lytic or blastic process in the visualized spine. No e vidence of acute fracture. Status post right mastoidectomy. Cervical soft tissues: The paraspinal soft tissues planes are maintained. Biapical pleural scarring. Degenerative changes: Degenerative changes, without severe central canal narrowing. Severe left neura l foraminal narrowing at C3-4 secondary to degenerative changes. IMPRESSION: No acute fracture or traumatic malalignment in the cervical spine. Reviewed, dictated and finalized at location K. [employer]
--- NOTE | ~2024-05-15 | XR_ITS ---
EXAM: XR sacrum coccyx min 2V DATE: 05/15/2024 15:27 HISTORY: fall , posterior pain fall 1 wk ago . COMPARISON: X-ray left hip and pelvis 04/22/2024; CT abdomen pelvis 04/22/2024. FINDINGS: Decreased mineralization. No fracture or dislocation. Lower lumbar degenerative disc disea se. Mild bilateral hip osteoarthritis. Scattered vascular calcifications. IMPRESSION: No acute osseous finding in the sacrum/coccyx. Reviewed, dictated and finalized at location K. UP OPERATOR
--- NOTE | ~2024-05-15 | XR_ITS ---
EXAM: XR ankle LT min 3V, XR foot LT min 3V DATE: 05/15/2024 15:27 (accession [id number]), 05/15/2024 15:26 (accession [id number]) HISTORY: fall 1 wk ago , swelling . COMPARISON: None available. FINDINGS: Decreased mineralization. Old lateral malleolus avulsion fracture fragment. No acute fract ure or dislocation. No lytic or blastic lesion. Mild degenerative change at the ankle joint and first MTP joint. Mild plantar enthesopathy. No erosion or periosteal change. Soft tissues within normal li mits. IMPRESSION: No acute osseous finding in the left ankle or foot. Reviewed, dictated and finalized at location K. S REPRESENTATIVES IMPRESSION: No acute osseous finding in the left ankle or foot.
[2024-05-15 11:45] VITALS: BP 169/66; PULSE 64; RESP 18; TEMP 36.6; O2SAT 100
[2024-05-15 13:10] VITALS: BP 156/78; PULSE 56; RESP 17; O2SAT 98
--- NOTE | 2024-05-15 14:16 | ED.FALL ---
HPI - Fall General Chief Complaint: Fall Stated Complaint: fall, catheter dislodged? Time Seen by Provider: 05/15/24 13:31 Source: family Limitations: dementia History of Present Illness HPI Narrative: Patient has a history of Alzheimers. Fell 1 week ago (last Thursday). It was not entirely witnessed though family believed that rather than a hiram fall he might have just slid down. He is on Eliquis for a history of DVT in right leg. Had missed some doses during a recent hospitalization but has otherwise been taking as prescribed while at home. No subsequent seizures after the fall. Has been a bit more confused than baseline, having some more difficulty consistently using his walker. has been checking pulse oximetry which has been fine but it also measures his pulse and she has noticed he has been fairly consistently in the low 60s and occasionally bradycardic. Indwelling Booth placed due to urinary retention after a previous unrelated surgical intervention. His urologist is Dr Yates. concerned that he might have dislodged the catheter during the fall and/or that he might have a UTI because she has noted that it is malodorous ( states it smells like Staph ). No appreciable urine discharge coming from penis which she checks when placing him on the toilet to have a bowel movement and no drainage from tubing or bag. The indwelling catheter was changed 1 week ago. Was also complaining of tailbone pain and bladder spasms. Concerned for swelling in his left foot/ankle which has been swollen like R leg. He has been getting Tylenol for pain (no more than 3000mg/day). 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 Has been holding left ear/mastoid occasionally as well as occasionally the right and compaining of a headache. Has a home health care nurse and had a tele-health visit with PCP on Thursday who wanted him to get a urinalysis, Xray of left foot/ankle, and CT head/neck. Related Data Home Medications Medication Instructions Recorded Confirmed finasteride 5 mg tablet 5 mg PO DAILY 11/29/23 04/22/24 cholecalciferol (vitamin D3) 25 25 mcg PO DAILY 04/14/24 04/22/24 mcg (1,000 unit) capsule (Vitamin D3) PreserVision AREDS-2 1 tablet PO DAILY 04/22/24 04/22/24 carboxymethylcellulose sodium 1 % 1 drp EACH EYE PRN PRN Dry Eyes 04/22/24 04/22/24 eye gel in a dropperette (Refresh Celluvisc) ferrous sulfate 325 mg (65 mg 325 mg PO DAILY 04/22/24 04/22/24 iron) tablet potassium chloride 10 mEq 20 meq PO DAILY 04/22/24 04/22/24 capsule,extended release Allergies Allergy/AdvReac Type Severity Reaction Status Date / Time cyclobenzaprine Allergy Anaphylaxis Verified 05/15/24 13:16 [From Flexeril] hydrocodone [From Vicodin] Allergy Unresponsiv Verified 05/15/24 13:16 e tramadol Allergy Anaphylaxis Verified 05/15/24 13:16 vancomycin Allergy Hallucinati Verified 05/15/24 13:16 ng [facility] Past Medical History Medical History Acoustic neuroma Right; 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 Hyperlipidemia Hypertension Indwelling Booth catheter present 18Fr coude Kidney stones Occult blood in stools Surgical History Surgical History History of lumbar fusion Family History Family History Father Alzheimers disease Mother Diabetes mellitus Hypertension Heart problem Spinocerebellar ataxia Sibling Hypertension Social History Social History Social History: Has home health care services Surrogate medical decision maker: Na Leach, spouse. Code status: Full code. Smoking status: Former smoker Tobacco type: pipe Alcohol intake: never Substance use: never Substance use type: does not use Do You Feel Safe in your Home?: Yes Lack of Transportation: No Lack of Food: Never True Current Housing: I Have Housing Concerned About Future Housing: No Difficulty Paying Gas/Electric Bills: No Difficulty Paying for Meds: No Currently Unemployed: No Education: High School Diploma/GED Difficulty w/ Childcare or Family Care: No Living arrangements: with family Spiritual care concerns: No Exam Narrative: GENERAL: well-nourished, and in no acute distress. HEAD: Normocephalic, atraumatic. No mastoid swelling. EYES: Non injected, non icteric ENT: Nares clear, no rhinorrhea or epistaxis. Some cerumen in left but tympanic membranes visualized bilaterally and without effusion/bulging/erythema. Normal external pinnae without protrusion or erythema. No drainage in auditory canal. NECK: Supple. CHEST: Non labored. No respiratory distress. HEART: Regular rate and rhythm. . ABDOMEN: Soft, nondistended. No tenderness to palpation/rigidity/guarding. : Indwelling Booth catheter draining yellow urine. EXTREMITIES: 1+ bilateral lower extremity edema. SKIN: Warm, dry, no rash. NEURO: No focal deficits. Alert and oriented to self. Minimally conversant - can not provide health history - family provides history. PSYCH: Congruent mood and affect. Course Vital Signs Vital signs: Vital Signs Temperature 97.8 F 05/15/24 11:45 Pulse Rate 64 05/15/24 11:45 Respiratory Rate 18 05/15/24 11:45 Blood Pressure 169/66 H 05/15/24 11:45 Pulse Oximetry 100 05/15/24 11:45 Oxygen Delivery Room Air 05/15/24 11:45 Temperature 97.8 F 05/15/24 11:45 Pulse Rate 62 05/15/24 16:17 Respiratory Rate 18 05/15/24 16:17 Blood Pressure 163/71 H 05/15/24 16:17 Pulse Oximetry 98 05/15/24 16:17 Oxygen Delivery Room Air 05/15/24 13:10 MDM - Fall MDM Narrative Medical decision making narrative: Patient presents 1 week after a fall. On Elliquis but did not present at that time. Has had some increased confusion. Also having left LE edema; similar to R in which a DVT had been diagnosed. Also complaining of tailbone pain to family and holding his head, primarily left ear/mastoid but occasionally right. history of Alzheimers dementia but also s/p resection of acoustic neuroma on the right. In the emergency department he is afebrile with vital signs notable for hypertension. It was noted that while he was hospitalized a few doses of his Eliquis were missed/held however he has been getting them regularly upon discharge. we discussed that if a blood clot was identified in the contralateral leg, management would not change. For this reason, an will not proceed with obtaining D-dimer or ultrasound study. ProBNP is only very slightly elevated at 300; would anticipate a greater than 900 value especially given patient's age per the reference range of the assay for diagnosis of heart failure. . Rest of work up generally unremarkable including labs and imaging unless as indicated. He does have evidence of a UTI. Previous culture that did have growth was sensitive to Bactrim, vancomycin, and nitrofurantoin. Patient is allergic to vancomycin and states that Macrobid does not work. Patient is reassessed and is otherwise well-appearing, improved. NOn toxic appearing although does look chronically ill. Patient given 1st dose of Bactrim in the emergency department with the rest of the course prescribed. We did discuss the option of admitting patient however through shared decision making decided to discharge home given that the management of this will be on oral antibiotic at the present time and admission is not without its own risk including exposure to other pathogens leading to possible pneumonia or other iatrogenic injury, delirium (which patient has gotten before when hospitalized requiring restraints). Patient's states that no portion of catheter appears to be leaking including not around the penis or with throughout the tubing however it is malodorous. Will change bag and tubing. Discharged back home in stable condition where has family support and home health care services. Strict ED return precautions given and / son verify understanding and are in agreement. Differential Diagnosis Differential diagnosis: Likely syncope, compression fracture and other (infection (PNA, UTI); heart failure; considered DVT; intracranial hemorrhage; fracture; symptomatic anemia; ACS) Lab Data Attestation: I reviewed the patient's lab results. Lab results narrative: normocytic anemia, stable from previous 05/15/24 15:08 05/15/24 15:08 Labs: Lab Results 05/15/24 05/15/24 Range/Units 15:08 15:31 WBC 6.0 (4.5-10.0) K/mm3 RBC 4.22 L (4.6-6.20) M/mm3 Hgb 12.8 L (14.0-18.0) g/dL Hct 38.8 L (42.0-52.0) % MCV 91.9 (80-100) fl MCH 30.3 (26-34) pg MCHC 33.0 (32-36) g/dl RDW 13.9 (11.5-14.5) % Plt Count 158 (150-375) k/mm3 MPV 9.9 (7.4-10.4) fl Immature Gran % (Auto) 0.2 (0-0.5) % Neut % (Auto) 66.5 (45.5-73.1) % Lymph % (Auto) 20.6 (18.3-44.2) % [place] % (Auto) 10.0 H (2.6-8.5) % Eos % (Auto) 2.0 (0-4.4) % Baso % (Auto) 0.7 (0.2-1.2) % Lymph # (Auto) 1.24 (0.9-3.2) K/mm3 [place] # (Auto) 0.6 (0.1-0.6) K/mm3 Eos # (Auto) 0.1 (0-0.3) K/mm3 Baso # (Auto) 0.0 (0.0-0.1) K/mm3 Abs Immat Gran (auto) 0.01 (0.00-0.031) K/mm3 Absolute Neuts (auto) 4.0 (1.3-6.7) K/mm3 Absolute Nucleated RBC 0.000 (0.0-0.012) K/mm3 Nucleated RBC % 0.0 (0.0-0.2) % Sodium 139 (137-145) mmol/L Potassium 3.7 (3.4-5.0) mmol/L Chloride 106 (98-107) mmol/L Carbon Dioxide 34 H (22-30) mmol/L Anion Gap -1 L (4-12) mmol/L BUN 14 D (9-20) mg/dL Creatinine 0.70 (0.7-1.3) mg/dL Estim Creat Clear Calc 50 ml/min Estimated GFR > 60 (59 - ) Glucose 91 (65-110) mg/dL Calcium 9.5 (8.4-10.2) mg/dL Total Bilirubin 0.6 (0.2-1.3) mg/dL AST 20 (17-59) U/L ALT 11 (6-50) U/L Alkaline Phosphatase 81 (38-126) U/L Troponin I < 0.012 (0.000-0.034) ng/mL NT-Pro-B Natriuret Pep 376 H (19.9-100) pg/mL Total Protein 6.0 L (6.3-8.2) g/dL Albumin 3.5 (3.5-5.1) g/dL Urine Color Yellow (Yellow) Urine Appearance Turbid H (Clear) Urine pH 6.0 (5.0-9.0) Ur Specific [place] 1.013 (1.001-1.035) Urine Protein 1+ H (Negative) mg/dL Urine Glucose (UA) Negative (Negative) mg/dL Urine Ketones Negative (Negative) mg/dL Ur Blood (Man) 3+ H (Negative) Urine Nitrate Negative (Negative) Urine Bilirubin Negative (Negative) Urine Urobilinogen 1.0 (<2.0) mg/dL Add Ur Microanalysis Reviewed Leukocyte Esterase Rfl 3+ H (Negative) TANNER/UL Urine RBC >100 H (0-2) /hpf Urine WBC >100 H (0-3) /hpf Ur Squamous Epith Cells None seen (Few) /hpf Amorphous Sediment Few H (None) Urine Bacteria 4+ H /hpf Urine Casts 11-20 Influenza A (RT-PCR) Negative (Negative) Influenza B (RT-PCR) Negative (Negative) RSV (RT-PCR) Negative (Negative) SARS-CoV-2 RNA (RT-PCR) Negative (Negative) Imaging Data Radiologist's impression: Impressions Head CT 05/15/24 15:03 IMPRESSION: No acute intracranial process. Cervical Spine CT 05/15/24 15:05 IMPRESSION: No acute fracture or traumatic malalignment in the cervical spine. Ankle X-Ray 05/15/24 15:30 IMPRESSION: No acute osseous finding in the left ankle or foot. Foot X-Ray 05/15/24 15:30 IMPRESSION: No acute osseous finding in the left ankle or foot. Chest X-Ray 05/15/24 15:32 IMPRESSION: No acute cardiopulmonary process. Sacrum and Coccyx X-Ray 05/15/24 15:46 IMPRESSION: No acute osseous finding in the sacrum/coccyx. ECG Data EKG #1: Attestation: I personally reviewed and interpreted this ECG as follows: ECG completion date: 05/15/24 ECG completion time: 14:58 Interpretation: Sinus bradycardia at a rate of 57 beats per minute. Although the P-waves are occasional low amplitude, it does appear that they precede nearly all QRS complexes. Good R-wave progression across the precordial leads. No T-wave inversions. Discharge Plan Discharge Clinical Impression: Normocytic anemia, Catheter-associated urinary tract infection Fall Qualifiers: Encounter type: initial encounter Qualified Code(s): W19.XXXA - Unspecified fall, initial encounter Patient Disposition: Home, Self-Care Condition: Stable Instructions: Antibiotic Form, Booth Catheter Placement and Care (ED), Fall Prevention for Older Adults (ED), Anemia (ED), Catheter-associated Urinary Tract Infection (ED) Additional Instructions: Patient received 1st dose of antibiotic in the emergency department with the rest of the course prescribed. You will be notified if based on the urine culture this antibiotic regimen needs to be changed. As we discussed, there are multiple ways to find a palliative care agency/physician. follow-up with your primary care physician. Return to the emergency department with any new or worsening symptoms. Prescriptions: New sulfamethoxazole-trimethoprim [Bactrim DS] 800-160 mg tablet 1 tablet PO Q12H 12 Days Qty: 24 0RF No Action finasteride 5 mg tablet 5 mg PO DAILY cholecalciferol (vitamin D3) [Vitamin D3] 25 mcg (1,000 unit) Capsule 25 mcg PO DAILY Eliquis DVT-PE Treat 30D Start 5 mg (74 tabs) tablets,dose pack See Rx Instructions .ROUTE .COMPLEX Qty: 74 0RF Rx Instructions: orally per package directions potassium chloride 10 mEq Capsule, Extended Release 20 meq PO DAILY carboxymethylcellulose sodium [Refresh Celluvisc] 1 % Dropperette,Gel 1 drp EACH EYE PRN PRN (Reason: Dry Eyes) PreserVision AREDS-2 1 tablet PO DAILY ferrous sulfate 325 mg (65 mg iron) tablet 325 mg PO DAILY pantoprazole 40 mg Tablet,Delayed Release (Dr/Ec) 40 mg PO QAM Qty: 30 0RF mirtazapine [Remeron] 15 mg tablet 15 mg PO HS Qty: 30 0RF Follow-up/Referrals: UNKNOWN,DOCTOR [Primary Care Provider] - Time of Disposition: 17:06
[2024-05-15 14:31] VITALS: BP 143/74; PULSE 54; RESP 17; O2SAT 97
--- NOTE | 2024-05-15 14:32 | ECG_ITS ---
Test Date: 2024-05-15 14:58:05 Measurements Intervals [place] Rate: 57 P: 51 [place]: 155 QRS: -16 QRSD: 86 T: 95 QT: 392 QTc: 384 Interpretive Statements SINUS BRADYCARDIA WITH OCCASIONAL VENTRICULAR PREMATURE COMPLEXES WITH OCCASIONAL SUPRAVENTRICULAR PREMATURE COMPLEXES NONSPECIFIC ST & T-WAVE ABNORMALITY ABNORMAL ECG Electronically Signed On 05-16-2024 08:54:30 STONE PLANER by Donnell Jauregui M.D.
[2024-05-15 15:15] LABS: Basophils Percent Auto 0.7 % (0.2-1.2); Eosinophils Absolute Auto 0.1 K/mm3 (0-0.3); Hematocrit 38.8 % (42.0-52.0); Hemoglobin 12.8 g/dL (14.0-18.0); Immature Granulocyte Absolute 0.01 K/mm3 (0.00-0.031); Immature Granulocyte Percent A 0.2 % (0-0.5); Lymphocytes Absolute Auto 1.24 K/mm3 (0.9-3.2); Lymphocytes Percent Auto 20.6 % (18.3-44.2); Mean Corpuscular Hemoglobin 30.3 pg (26-34); Mean Corpuscular Volume 91.9 fl (80-100); Mean Platelet Volume 9.9 fl (7.4-10.4); Monocytes Absolute Auto 0.6 K/mm3 (0.1-0.6); Neutrophils Percent Auto 66.5 % (45.5-73.1); Platelet Count Result 158 k/mm3 (150-375); Red Blood Count 4.22 M/mm3 (4.6-6.20); Red Cell Distribution Width 13.9 % (11.5-14.5)
[2024-05-15 15:28] LABS: Alanine Aminotransferase 11 U/L (6-50); Albumin Level 3.5 g/dL (3.5-5.1); Alkaline Phosphatase 81 U/L (38-126); Anion Gap -1 mmol/L (4-12); Aspartate Amino Transferase 20 U/L (17-59); Bilirubin,Total 0.6 mg/dL (0.2-1.3); Blood Urea Nitrogen 14 mg/dL (9-20); Calcium 9.5 mg/dL (8.4-10.2); Carbon Dioxide 34 mmol/L (22-30); Chloride 106 mmol/L (98-107); Estimated CRCL calculation 50 ml/min; Estimated Glomerular Filt Rate > 60; Glucose 91 mg/dL (65-110); Potassium 3.7 mmol/L (3.4-5.0); Sodium 139 mmol/L (137-145)
[2024-05-15 15:34] LABS: NT Pro B Type Natriuretic Pept 376 pg/mL (19.9-100)
[2024-05-15 15:36] LABS: Troponin I < 0.012 ng/mL (0.000-0.034)
[2024-05-15 15:51] LABS: Influenza A QL RT-PCR Negative (Negative); Influenza B QL RT-PCR Negative (Negative); RSV RNA, RT-PCR Negative (Negative); SARS-CoV-2 RNA PCR Negative (Negative)
[2024-05-15 16:17] VITALS: BP 163/71; PULSE 62; RESP 18; O2SAT 98
[2024-05-15 16:20] LABS: Add Urine Microscopic? YES; Appearance Urine Turbid (Clear); Bacteria Urine 4+ /hpf; Bilirubin Urine Negative (Negative); Blood Urine 3+ (Negative); Color Urine Yellow (Yellow); Glucose Urine UA Negative (Negative); Ketones Urine Negative (Negative); Leukocyte Esterase Ur 3+ LEU/UL (Negative); Need Manual Microscopic Reviewed; Nitrate Urine Negative (Negative); Protein Urine 1+ mg/dL (Negative); RBC Urine >100 /hpf (0-2); Specific Grav Ur 1.013 (1.001-1.035); Squamous Epithelial Cell Urine None Seen /hpf (Few); WBC Urine >100 /hpf (0-3)
[2024-05-15 16:22] LABS: Amorphous Sediment Urine Few
[2024-05-15] MEDS: SULFAMETHOXAZOLE/TRIMETHOPRIM 800/160 MG DS TABLET 1 TAB PO (17:11)
== END 2024-05-15 17:43 | disposition home or self-care (01) ==
PROVIDERS: Emergency Provider Student in an Organized Health Care Education/Training Program
DX: D64.9 Anemia, unspecified (principal); T83.518A Infection and inflammatory reaction due to other urinary catheter, initial encounter; W18.30XA Fall on same level, unspecified, initial encounter; Z86.718 Personal history of other venous thrombosis and embolism; Z79.01 Long term (current) use of anticoagulants; H91.91 Unspecified hearing loss, right ear; E11.9 Type 2 diabetes mellitus without complications; G30.9 Alzheimer's disease, unspecified; F02.80 Dementia in other diseases classified elsewhere, unspecified severity, without behavioral disturbance, psychotic disturbance, mood disturbance, and anxiety; I10 Essential (primary) hypertension; Z87.891 Personal history of nicotine dependence; Z20.822 Contact with and (suspected) exposure to COVID-19
CPT/HCPCS: 36415; 70450; 71045; 72125; 72220; 73610; 73630; 80053; 81001; 83880; 84484; 85025; 87077; 87086; 87186; 87637; 93005; 99284; A9270